=== PATIENT | male | born 1990 | race Caucasian/White ===

== ENCOUNTER 2016-11-04 11:58 | Day surgery (SDC) | payer MEDICAID ==
[~2016-11-04] VITALS: Ht 142.2 cm; Wt 45.4 kg
[~2016-11-04 11:58] MED LIST: BACL10TA2 PO; BUDE0.5S6 INH; CITA20TA4 PO; DIAZ2TAB PO; LEVA0.636 INH; MAGNSOL PO; NYST100024 TOP; PEG1POW PO; SENN8.6T10 PO
[2016-11-04] MEDS ORDERED: LR 1,000 ML IV SCH ×3 (13:00→22:00)
[2016-11-04] MEDS ORDERED: EMLA CREAM 5GM (LIDOCAINE/PRILOCAINE) As Ordered ONE (16:41)
[2016-11-04] MEDS ORDERED: LIDOCAINE W/EPINEPHRINE 1% 20ML VIAL As Ordered ONE (19:36)
[2016-11-04] MEDS ORDERED: ROCURONIUM BROMIDE 50 MG/5 ML VIAL As Ordered ONE (20:43)
[2016-11-04] MEDS ORDERED: ONDANSETRON 4MG/2ML VIAL (J2405) As Ordered ONE (20:43)
[2016-11-04] MEDS ORDERED: MIDAZOLAM INJ 2 MG/2 ML VIAL (J2250) As Ordered ONE (20:43)
[2016-11-04] MEDS ORDERED: PROPOFOL 200 MG/20 ML VIAL As Ordered ONE (20:43)
[2016-11-04] MEDS ORDERED: fentaNYL 250 MCG/5 ML INJECTION (J3010) As Ordered ONE (20:43)
[2016-11-04] MEDS ORDERED: LIDOCAINE 2% INJ 100 MG/5 ML SDV (FOR ANES.) As Ordered ONE (20:43)
[2016-11-04] MEDS ORDERED: fentaNYL 100 MCG/2 ML INJECTION (J3010) IV PRN (22:00)
[2016-11-04] MEDS ORDERED: ONDANSETRON 4MG/2ML VIAL (J2405) IV PRN (22:00)
[2016-11-04] MEDS ORDERED: IBUPROFEN 600 MG TAB PO PRN (22:15)
[2016-11-04 22:45] VITALS: BP 112/58
--- NOTE | 2016-11-05 00:02 | RO ---
DATE OF PROCEDURE: 11/04/2016 PREOPERATIVE DIAGNOSIS: Dental caries. POSTOPERATIVE DIAGNOSIS: Dental Caries; gingivitis PROCEDURE: operative and full mouth debridement SURGEON; Dr. Uli Harris PARAGLIDING INSTRUCTOR: None ANESTHESIA: General DESCRIPTION OF PROCEDURE: The patient, Quoc Lazo, was brought to the operating room and placed onto the operating table in the supine position. After all monitoring equipment was attached to the patient, vital signs were checked and general anesthetic medicaments were delivered via inhalation. Nasal intubation proceeded and tube extension was secured into position after breathing was monitored. The patient was then prepped and draped for dental surgical procedures. The intraoral cavity was inspected and suctioned free of gross secretions. One large moist throat pack was placed. One full mouth radiograph series were taken. Exam completed. Full mouth debridement and prophy of entire dentition completed. Decay removal followed by composite condensation was completed on the mesial and facial surface of tooth #23. Fluoride varnish application completed. Final removal of all gross fluids from intraoral and extraoral structure. Bite block removed. The patient then left in the care of presiding anesthesiologist. Note, there was continuous removal of all gross fluid throughout the duration of all performed dental procedures. JELANI
== END 2016-11-04 23:41 ==
LOC: M SDC 11:58 → M MSPAV 22:37 → M SDC 23:41
PROVIDERS: ATTEND Dentist General Practice
DX: K02.61 Dental caries on smooth surface limited to enamel (principal); K05.00 Acute gingivitis, plaque induced; R29.898 Other symptoms and signs involving the musculoskeletal system; G80.9 Cerebral palsy, unspecified; J45.909 Unspecified asthma, uncomplicated; R32 Unspecified urinary incontinence; J30.9 Allergic rhinitis, unspecified; H66.3X9 Other chronic suppurative otitis media, unspecified ear; Z88.1 Allergy status to other antibiotic agents; Z79.899 Other long term (current) drug therapy; Z91.09 Other allergy status, other than to drugs and biological substances
CPT/HCPCS: 70320; D0210; D2331; D4355; D9223; J2250; J2405; J3010

== ENCOUNTER 2017-06-10 12:30 | Emergency (ER) | payer MEDICAID ==
[~2017-06-10] VITALS: Ht 142.2 cm; Wt 45.5 kg
[~2017-06-10 12:30] MED LIST changes: -MAGNSOL PO; +MAGNSOL18 PO; -NYST100024 TOP; +NYST1POW9 TOP; +SENN1TAB10 PO; -SENN8.6T10 PO
[2017-06-10] MEDS ORDERED: BACL10TA2 PO (12:44)
[2017-06-10] MEDS ORDERED: FLEET ENEMA PR STA (16:06)
[2017-06-10] MEDS ORDERED: CITRSOL8 PO (16:59)
[2017-06-10 17:07] VITALS: BP 131/72
--- NOTE | 2017-06-10 17:39 | REP ---
Abdomen series: Three views. History: Constipation. Comparison study: September 08, 2016. Findings: Upright chest radiograph is unremarkable. Heart is not enlarged. Lungs are clear. Supine and right-side up decubitus views of the abdomen show no evidence of free air. 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 No mass, organomegaly or pathologic calcification is seen. Impression: Unremarkable bowel gas pattern. No evidence of free air or obstruction. Moderate stool left colon. Signed by Andres Latham MD 06/11/2017 07:57 A
== END 2017-06-10 17:09 | disposition home or self-care (01) ==
LOC: M ED 12:30
DX: K59.09 Other constipation (principal); G80.9 Cerebral palsy, unspecified

== ENCOUNTER → 2019-08-09 | Outpatient (REF) | payer MEDICAID ==
[~2019-08-09] MED LIST changes: -CITA20TA4 PO; +CITA20TA6 PO; +CITRSOL8 PO
== END ==
LOC: M LAB REF 16:39
PROVIDERS: ATTEND Physician Assistant
DX: S51.001A Unspecified open wound of right elbow, initial encounter (principal)

== ENCOUNTER → 2019-10-15 | Outpatient (CLI) | payer MEDICAID ==
--- NOTE | 2019-10-19 09:40 | DEXA ---
AP SPINE L1 - L4 0.827 -3.0 -3.3 LT FEMUR TOTAL 0.609 -3.2 -3.4 LT NECK 0.475 -4.1 -4.6 RT FEMUR TOTAL 0.673 -2.7 -2.9 RT NECK 0.643 -2.8 -3.3 TOTAL BODY TOTAL OTHER COMMENTS: There is osteoporosis of the spine and hips. FOLLOW-UP: Recommendation for the next bone density exam: 2 years. JELANI
== END ==
LOC: M WHC 10:40 → EEVIPCON 11:00
PROVIDERS: ATTEND Family Medicine
DX: Z13.820 Encounter for screening for osteoporosis (principal); M81.8 Other osteoporosis without current pathological fracture

== ENCOUNTER → 2020-07-14 | Outpatient (CLI) | payer MEDICAID ==
[~2020-07-14] MED LIST changes: -MAGNSOL18 PO; +MAGNSOL2 PO
[2020-07-14 14:41] LABS: ALBUMIN 3.8 GM/DL (3.2-5.2); ALT/SGPT 24 U/L (12-78); BILIRUBIN,TOTAL 0.5 MG/DL (0.2-1.0); BLOOD UREA NITROGEN 15 MG/DL (7-18); CALCIUM LEVEL 8.8 MG/DL (8.5-10.1); CARBON DIOXIDE LEVEL 28 MEQ/L (21-32); CHLORIDE LEVEL 106 MEQ/L (98-107); CREATININE FOR GFR 0.73 MG/DL (0.70-1.30); GLOMERULAR FILTRATION RATE > 60.0 (>60); GLUCOSE, FASTING 77 MG/DL (70-100); POTASSIUM SERUM 4.2 MEQ/L (3.5-5.1); SODIUM LEVEL 139 MEQ/L (136-145); TOTAL PROTEIN 7.1 GM/DL (6.4-8.2)
== END ==
LOC: M WUC 09:02
PROVIDERS: ATTEND Physical Medicine & Rehabilitation
DX: G80.0 Spastic quadriplegic cerebral palsy (principal)

== ENCOUNTER → 2021-01-03 | Outpatient (CLI) | payer MEDICAID ==
[~2021-01-03] MED LIST changes: -PEG1POW PO; +POLY17PO18 PO
[2021-01-03 10:31] LABS: BASO # 0.1 10^3/uL (0.0-0.2); BASO % 1.1 % (0.0-1.0); EOS # 0.1 10^3/uL (0.0-0.5); HEMATOCRIT 30.1 % (42.0-52.0); HEMOGLOBIN 8.5 g/dl (13.5-17.5); LYMPH # 2.2 10^3/uL (1.5-5.0); LYMPH % 34.1 % (24.0-44.0); MEAN CORPUSCULAR HEMOGLOBIN 19.9 pg (27.0-33.0); MEAN CORPUSCULAR HGB CONC 28.2 g/dl (32.0-36.5); MEAN CORPUSCULAR VOLUME 70.3 fl (80.0-96.0); MONO # 0.7 10^3/uL (0.0-0.8); MONO % 10.4 % (2.0-8.0); NEUTROPHILS # 3.3 10^3/uL (1.5-8.5); NEUTROPHILS % 52.2 % (36.0-66.0); PLATELET COUNT, AUTOMATED 420 10^3/uL (150-450); RED BLOOD COUNT 4.28 10^6/uL (4.30-6.10); WHITE BLOOD COUNT 6.4 10^3/uL (4.0-10.0)
[2021-01-03 11:33] LABS: ALBUMIN 3.9 GM/DL (3.2-5.2); ALT/SGPT 25 U/L (12-78); BILIRUBIN,TOTAL 0.1 MG/DL (0.2-1.0); BLOOD UREA NITROGEN 14 MG/DL (7-18); CALCIUM LEVEL 9.5 MG/DL (8.5-10.1); CARBON DIOXIDE LEVEL 29 MEQ/L (21-32); CHLORIDE LEVEL 102 MEQ/L (98-107); CHOLESTEROL LEVEL 237 MG/DL (<200); CHOLESTEROL RISK RATIO 4.557 (<5); CREATININE FOR GFR 0.52 MG/DL (0.70-1.30); FERRITIN 4 NG/ML (26-388); FOLATE 7.1 NG/ML; FREE T4 0.99 NG/DL (0.76-1.46); GLOMERULAR FILTRATION RATE > 60.0 (>60); GLUCOSE, FASTING 82 MG/DL (70-100); HDL CHOLESTEROL 52 MG/DL (>40); IRON (FE) 10 UG/DL (65-175); LDL CHOLESTEROL 145 MG/DL (<100); NON-HDL-C 185 MG/DL; POTASSIUM SERUM 4.5 MEQ/L (3.5-5.1); SODIUM LEVEL 139 MEQ/L (136-145); TOTAL PROTEIN 6.9 GM/DL (6.4-8.2); TRIGLYCERIDES LEVEL 202 MG/DL (<150); VITAMIN B12 LEVEL 499 PG/ML
[2021-01-04 16:08] LABS: H PYLORI SERUM QUANT IGA <9.0 units (0.0-8.9); H PYLORI SERUM QUANT IGM <9.0 units (0.0-8.9); H PYLORI SERUM QUANT IgG ABY 0.22 (0.00-0.79)
== END ==
LOC: M LAB 09:20
PROVIDERS: ATTEND Physician Assistant
DX: Z13.220 Encounter for screening for lipoid disorders (principal); Z13.0 Encounter for screening for diseases of the blood and blood-forming organs and certain disorders involving the immune mechanism; R11.10 Vomiting, unspecified; Z13.29 Encounter for screening for other suspected endocrine disorder

== ENCOUNTER → 2021-01-30 | Outpatient (CLI) | payer MEDICAID ==
[~2021-01-30] MED LIST changes: +ISOVUE-370 76% 100ML VIAL As Ordered ONE
--- NOTE | 2021-01-30 12:41 | REP ---
INDICATION: CONSTIPATION. COMPARISON: Abdomen/pelvis CT dated 09/06/2016. TECHNIQUE: Abdomen/pelvis CT without IV or bowel contrast. FINDINGS: The ascending colon, transverse colon and descending colon are distended with a large volume of fecal residue. Next I believe this patient has a markedly redundant sigmoid colon that is distended with gas and air containing multiple loops residing primarily anteriorly in the abdomen, anterior to the transverse colon and small bowel. This anatomy could be confirmed by barium enema. There is no small bowel distention or obstruction. The visualized lung crockett are unremarkable. The unenhanced hepatic parenchyma, gallbladder, pancreas, spleen, adrenals, kidneys and abdominal aorta are unremarkable. There is no ascites or adenopathy. Pelvis: The bladder is unremarkable. There is no ascites or adenopathy. IMPRESSION: I suspect this patient has a markedly redundant sigmoid colon multiple loops residing anteriorly in the abdomen. The sigmoid colon is distended with air and gas. The ascending colon, transverse colon and descending colon are distended with a large volume of fecal residue. This colonic anatomy could be confirmed by barium enema. <Electronically signed by Talha Finley > 01/30/21 [id number]
== END ==
LOC: M RAD 10:31
PROVIDERS: ATTEND Nurse Practitioner Family
DX: K59.00 Constipation, unspecified (principal)

== ENCOUNTER → 2021-04-12 | Outpatient (CLI) | payer MEDICAID ==
[~2021-04-12] MED LIST changes: +ACET-910 PO; +ALEN70TA82 PO; +CETI10TA PO; +CYCL-707 PO; +D32000CA PO; +DANT25CA2 PO; +DOK1CAP7 PO; +FISH1000 PO; +FLEEENE12 PR; +FLEEENE3 PR; +IBUP200T45 PO; -ISOVUE-370 76% 100ML VIAL As Ordered ONE; +LACT20EL PO; +MIRA3350 PO; +PROB1TAB2 PO; +SIME80CH5 PO; +vitamin d3
== END ==
LOC: M LABSMTC 12:44
PROVIDERS: ATTEND Family Medicine
DX: Z20.822 Contact with and (suspected) exposure to COVID-19 (principal); Z53.8 Procedure and treatment not carried out for other reasons

== ENCOUNTER 2021-04-16 10:29 | Inpatient (IN) | payer MEDICAID ==
[~2021-04-16] VITALS: Ht 139.7 cm; Wt 50.9 kg
[~2021-04-16 10:29] MED LIST changes: -ACET-910 PO; -ALEN70TA82 PO; -CETI10TA PO; -CYCL-707 PO; -D32000CA PO; -DANT25CA2 PO; -DOK1CAP7 PO; -FISH1000 PO; -FLEEENE12 PR; -FLEEENE3 PR; -IBUP200T45 PO; -LACT20EL PO; -MIRA3350 PO; -PROB1TAB2 PO; -SIME80CH5 PO; -vitamin d3
[2021-04-16] MEDS ORDERED: LACT20EL PO (10:56)
[2021-04-16] MEDS ORDERED: vitamin d3 (10:56)
[2021-04-16] MEDS ORDERED: MIRA3350 PO (10:56)
[2021-04-16] MEDS ORDERED: SIME80CH5 PO (10:56)
[2021-04-16] MEDS ORDERED: DANT25CA2 PO (10:56)
[2021-04-16] MEDS ORDERED: ALEN70TA82 PO (10:56)
[2021-04-16] MEDS ORDERED: CYCL-707 PO (10:56)
[2021-04-16] MEDS ORDERED: DOK1CAP7 PO (10:56)
[2021-04-16] MEDS ORDERED: NS 1,000 ML IV ONE (11:25)
[2021-04-16] MEDS ORDERED: ISOVUE-370 76% 100ML VIAL As Ordered ONE (11:34)
[2021-04-16 11:36] LABS: BASO # 0.1 10^3/uL (0.0-0.2); BASO % 0.6 % (0.0-1.0); EOS # 0.3 10^3/uL (0.0-0.5); EOS % 1.9 % (0.0-3.0); HEMATOCRIT 43.6 % (42.0-52.0); LYMPH # 1.9 10^3/uL (1.5-5.0); LYMPH % 11.2 % (24.0-44.0); MEAN CORPUSCULAR HEMOGLOBIN 28.8 pg (27.0-33.0); MEAN CORPUSCULAR HGB CONC 32.1 g/dl (32.0-36.5); MEAN CORPUSCULAR VOLUME 89.7 fl (80.0-96.0); MONO # 1.8 10^3/uL (0.0-0.8); MONO % 10.5 % (2.0-8.0); NEUTROPHILS # 12.6 10^3/uL (1.5-8.5); NEUTROPHILS % 72.7 % (36.0-66.0); PLATELET COUNT, AUTOMATED 328 10^3/uL (150-450); RED BLOOD COUNT 4.86 10^6/uL (4.30-6.10)
[2021-04-16 12:20] LABS: WHITE BLOOD COUNT 17.3 10^3/uL (4.0-10.0)
--- NOTE | 2021-04-16 12:21 | REP ---
INDICATION: rectal/gluteal abscess. COMPARISON: 01/30/2021. TECHNIQUE: CT pelvis performed following the intravenous administration of 75 cc Isovue 370. Sagittal and coronal reconstruction images are performed. FINDINGS: There is diffuse inflammatory thickening of the distal sigmoid and of the rectum. The perirectal fat is inflamed. Between the rectum and sacrum there is ill-defined soft tissue density likely representing phlegmonous change, with no discrete walled-off drainable abscess identified. Just deep to the anal verge there is an anal fistula at the 5 o'clock position which extends into the left gluteal soft tissues. [id number] streaky inflammatory changes extend to the skin surface but there is no abscess collection identified in these soft tissues. No free air is seen in the pelvis. No significantly enlarged lymph nodes are seen in the pelvis. 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 There is spina bifida occulta of S1. No osseous destruction is seen of the pelvic bones. IMPRESSION: Diffuse inflammatory thickening of the rectum extending into the distal sigmoid. Presacral phlegmonous change with no definite drainable walled-off abscess. There is a small fistula of the anus just above the anal verge at the 5 o'clock position, with a thin tract extending into the left gluteal soft tissues, with associated soft tissue inflammation. No abscess is seen at that location. <Electronically signed by Talha George > 04/16/21 [id number]
[2021-04-16] MEDS ORDERED: VANCOMYCIN HCL 1,000 MG, VIAL MATE ADAPTER 1 EACH in NS 250 ML IV ONE (13:50)
[2021-04-16] MEDS ORDERED: MOM 30ML SUSPENSION UDC PO PRN (14:35)
[2021-04-16] MEDS ORDERED: MAALOX 30 ML SUSP *UDC PO PRN (14:35)
[2021-04-16] MEDS ORDERED: CETI10TA PO (14:42)
[2021-04-16] MEDS ORDERED: ACET-910 PO (14:42)
[2021-04-16] MEDS ORDERED: FLEEENE12 PR (14:42)
[2021-04-16] MEDS ORDERED: IBUP200T45 PO (14:42)
[2021-04-16] MEDS ORDERED: PROB1TAB2 PO (14:42)
[2021-04-16] MEDS ORDERED: D32000CA PO (14:42)
[2021-04-16] MEDS ORDERED: FLEEENE3 PR (14:42)
[2021-04-16] MEDS ORDERED: FISH1000 PO (14:42)
[2021-04-16] MEDS ORDERED: VANCOMYCIN HCL 1,000 MG, VIAL MATE ADAPTER 1 EACH in NS 250 ML IV SCH (15:05)
[2021-04-16 15:25] LABS: RSV AMPLIFICATION NEGATIVE (NEGATIVE)
--- NOTE | 2021-04-16 16:02 | HPEPDOC ---
[facility] Medical History & Physical Date of Admission Apr 16, 2021 Date of Service: Apr 16, 2021 History and Physical CHIEF COMPLAINT: Anal pain HISTORY OF PRESENT ILLNESS: Patient is 30 years old history of cerebral palsy and mental retardation [facility] patient brought in to the hospital because of a two-week history of perianal pain. Staff noticed skin was increasingly becoming more red and painful and he was unable to sit up in his chair anymore. Unclear why he was not brought in earlier. Per [facility] worker at bedside it has been getting worse over the past week. Staff reports he had a fever. [facility] staff tells me his mother regularly shaves his perianal area. Unfortunately unable to obtain much history patient is mentally retarded and [facility] staff is not able to be more information. PAST MEDICAL/SURGICAL HISTORY: From chart review: [facility] patient mental retardation Cerebral palsy Seizure disorder Asthma SOCIAL HISTORY: Unable to obtain due to patients mental condition FAMILY HISTORY: Unable to obtain due to patients mental condition ALLERGIES: Please see below. REVIEW OF SYSTEMS: Unable to obtain due to patients mental condition HOME MEDICATIONS: Please see below. PHYSICAL EXAMINATION: Constitutional: Awake and alert ENT: Sclera are clear. Respiratory: Lungs CTA bilaterally. Cardiovascular: RRR S1 and S2 Gastrointestinal: Abdomen is soft, non distended Musculoskeletal: No lower extremity edema. Neurologic: Unable to assess Mental Status: Nonverbal Skin: Perianal skin is red and warm with probably an anal fissure. Tender to palpation. Examined with Dr. Pederson LABORATORY DATA: See below. IMAGING: See chart MICROBIOLOGY: Please see below. ASSESSMENT 30-year-old male [facility] patient was cerebral palsy brought in because of a two-week history of perianal pain. Admitted for evaluation by surgery and further medical workup and management. # Perianal infection # Cerebral palsy PLAN Unclear extent at this point. Discussed and consulted with Dr. Pederson. Recommended IV antibiotics for a few days may need to be explored more under anesthesia and you are later depending on how he responds to antibiotics. May need biopsy of the area to rule out anal cancer. I'll defer management to surgery. Blood cultures ordered. Patient is now on IV vancomycin.Continue home medications for chronic medical problems. DVT prophylaxis: Annax Bong Chengsef Hospitalist Vital Signs Vital Signs Date Time Temp Pulse Resp B/P (MAP) Pulse Ox O2 Delivery O2 Flow Rate FiO2 04/16/21 14:00 109/61 (77) 04/16/21 13:59 100 16 95 Room Air 04/16/21 10:51 99.0 Laboratory Data Labs 24H Laboratory Tests 2 04/16/21 11:24: Immature Granulocyte % (Auto) 3.1H, Neutrophils (%) (Auto) 72.7H, Lymphocytes (%) (Auto) 11.2L, Monocytes (%) (Auto) 10.5H, Eosinophils (%) (Auto) 1.9, Basophils (%) (Auto) 0.6, Neutrophils # (Auto) 12.6H, Lymphocytes # (Auto) 1.9, Monocytes # (Auto) 1.8H, Eosinophils # (Auto) 0.3, Basophils # (Auto) 0.1, Nucleated Red Blood Cells % (auto) 0.0, POC Glucose (Misc Panel) 94, POC Sodium (Misc Panel) 140, POC Potassium (Misc Panel) 3.4L, POC Chloride (Misc Panel) 101, POC Total CO2 (Misc Panel) 26.0, POC Blood Urea Nitrogen (Misc Panel 7L, POC Ionized Calcium (Misc Panel) 4.4L, POC Creatinine (Misc Panel) 0.5L, POC Hematocrit (Misc Panel) 45.0, Lactic Acid Level 1.1 04/16/21 14:40: Coronavirus (COVID-19)(PCR) NEGATIVE, Influenza Type A (RT-PCR) NEGATIVE, Influenza Type B (RT-PCR) NEGATIVE, Respiratory Syncytial Virus (PCR) NEGATIVE CBC/BMP Laboratory Tests 04/16/21 11:24 Microbiology Microbiology 04/16/21 Blood Culture, Received Pending 04/16/21 Blood Culture, Received Pending Home Medications Scheduled Alendronate Sodium (Alendronate Sodium) 70 Mg Tablet, 70 MG PO QWEEK WEDNESDAYS Cholecalciferol (Vitamin D3) (Vitamin D3) 50 Mcg Capsule, 50 MCG PO QHS Citalopram Hydrobromide (Citalopram HBr) 20 Mg Tab, 20 MG PO QHS Cyclobenzaprine HCl (Cyclobenzaprine HCl) 10 Mg Tablet, 10 MG PO TID Dantrolene Sodium (Dantrolene Sodium) 25 Mg Capsule, 50 MG PO TID Diazepam (Diazepam) 2 Mg Tab, 4 MG PO TID Docusate Sodium (Dok) 100 Mg Capsule, 100 MG PO BID Lactobacillus Acidophilus (Acidophilus) 1 Each Tablet, 1 TAB PO QHS Lactulose (Lactulose) 10 Gm/15 Ml Solution, 15 ML PO BID Greene-3 Fatty Acids/Fish Oil (Fish Oil 1,000 mg Capsule) 1 Each Capsule, 2,000 MG PO DAILY GIVEN WITH LUNCH Polyethylene Glycol 3350 (Miralax) 119 Gm Powder, 17 GRAM PO BID Simethicone (Simethicone) 80 Mg Tab.chew, 80 MG PO BID Scheduled PRN Acetaminophen (Acetaminophen) 325 Mg Tablet, 650 MG PO Q4H PRN for PAIN LEVEL 1- 4 Cetirizine HCl (Cetirizine HCl) 10 Mg Tablet, 10 MG PO DAILY PRN for ALLERGIES Glycerin (Glycerin Laxative) 5.4 Gm/5.4 Ml Janell.pf.kory, 5.4 GM MN DAILY PRN for CONSTIPATION ADMINISTER ON DAY 3 OF NO BOWEL MOVEMENT Ibuprofen (Ibu-200) 200 Mg Tablet, 400 MG PO Q6H PRN for PAIN LEVEL 1-5 Sodium Phosphate,[place]-Dibasic (Fleet Enema) 133 Ml Enema, 1 STEVE MN DAILY PRN for CONSTIPATION ADMINISTER ON DAY 4 OF NO BOWEL MOVEMENT Allergies Coded Allergies: cefaclor (Verified Allergy, Intermediate, HIVES, 11/02/20) red dye (Verified Adverse Reaction, Mild, GI UPSET, 11/02/20) A-FIB/CHADSVASC A-FIB History Current/History of A-Fib/PAF?: No KOURTNEY SOLO MD Apr 16, 2021 16:02
[2021-04-16] MEDS ORDERED: CETIRIZINE (ZyrTEC) 10 MG TAB PO PRN (16:05)
[2021-04-16] MEDS ORDERED: FLEET ENEMA PR PRN (16:05)
[2021-04-16 16:49] VITALS: BP 97/70
[2021-04-16] MEDS: ACETAMINOPHEN TAB 650MG DOSE (2X325MG) PO PRN (17:21)
[2021-04-16] MEDS: diazePAM 2 MG TAB PO SCH ×2 (17:21→21:46)
[2021-04-16] MEDS: CYCLOBENZAPRINE 10MG TABLET PO SCH ×2 (17:21→21:05)
[2021-04-16] MEDS: DANTROLENE 25 MG CAP PO SCH ×2 (17:52→21:05)
[2021-04-16] MEDS: CitaloPRAM (CeleXA) 20 MG TAB PO SCH (21:05)
[2021-04-16] MEDS: VANCOMYCIN HCL 750 MG, VIAL MATE ADAPTER 1 EACH in NS 250 ML IV SCH (21:06)
[2021-04-16] MEDS: MIRALAX *UNIT DOSE* 17GM PACKET PO SCH (21:06)
[2021-04-16] MEDS: DOCUSATE SODIUM 100MG CAPSULE PO SCH (21:06)
[2021-04-16] MEDS: LACTULOSE 20 GM/30 ML SYRUP UD PO SCH (21:06)
[2021-04-16] MEDS: SIMETHICONE 80MG CHEW TAB PO SCH (21:06)
[2021-04-16] MEDS: IBUPROFEN 400MG TAB PO PRN (21:47)
[2021-04-16 22:00] VITALS: BP 127/77
[2021-04-17] MEDS: VANCOMYCIN HCL 750 MG, VIAL MATE ADAPTER 1 EACH in NS 250 ML IV SCH ×3 (04:25→19:56)
[2021-04-17 06:00] VITALS: BP 140/66
[2021-04-17 06:28] LABS: HEMATOCRIT 42.3 % (42.0-52.0); HEMOGLOBIN 13.7 g/dl (13.5-17.5); MEAN CORPUSCULAR HEMOGLOBIN 29.1 pg (27.0-33.0); MEAN CORPUSCULAR HGB CONC 32.4 g/dl (32.0-36.5); MEAN CORPUSCULAR VOLUME 89.8 fl (80.0-96.0); PLATELET COUNT, AUTOMATED 371 10^3/uL (150-450); RED BLOOD COUNT 4.71 10^6/uL (4.30-6.10); WHITE BLOOD COUNT 17.8 10^3/uL (4.0-10.0)
[2021-04-17 06:47] LABS: BLOOD UREA NITROGEN 6 MG/DL (7-18); CALCIUM LEVEL 8.5 MG/DL (8.5-10.1); CARBON DIOXIDE LEVEL 26 MEQ/L (21-32); CHLORIDE LEVEL 106 MEQ/L (98-107); CREATININE FOR GFR 0.47 MG/DL (0.70-1.30); GLOMERULAR FILTRATION RATE > 60.0 (>60); GLUCOSE, FASTING 119 MG/DL (70-100); MAGNESIUM LEVEL 2.2 MG/DL (1.8-2.4); POTASSIUM SERUM 3.8 MEQ/L (3.5-5.1); SODIUM LEVEL 140 MEQ/L (136-145)
[2021-04-17] MEDS: MIRALAX *UNIT DOSE* 17GM PACKET PO SCH ×2 (09:00→21:40)
[2021-04-17] MEDS: LACTULOSE 20 GM/30 ML SYRUP UD PO SCH ×2 (09:00→21:40)
--- NOTE | 2021-04-17 09:06 | IPNPDOC ---
Text Note Date of Service The patient was seen on 04/17/21. NOTE Gen. surgery. Dr. Pederson The patient is a 30-year-old male with cerebral palsy, intellectual disability, [facility] resident, brought to the emergency department with a two-week history of renal pain, increasing redness and fever. The patient was noted to have perianal infection. T max 99.7 VSS Pt is non verbal. Contractions of Ues and LEs. Abdomen is soft, NT, ND. Perianal skin is erythematous, tenderness with palpation of the area, there appeared to be drainage of liquid stool from a small open area of skin . WBC 17.8, increased slightly. CT IMPRESSION: Diffuse inflammatory thickening of the rectum extending into the distal sigmoid. Presacral phlegmonous change with no definite drainable walled-off abscess. There is a small fistula of the anus just above the anal verge at the 5 o'clock position, with a thin tract extending into the left gluteal soft tissues, with associated soft tissue inflammation. No abscess is seen at that location. <Electronically signed by Talha George > 04/16/21 1217 A/P. Perianal infection with possible abscess, possible fistula. Patient is reviewed and examined as per Dr. Pederson this morning. Plan to arrange for OR for rectal exam under anesthesia with possible I&D of perianal abscess. Continue IV fluids and IV antibiotics as per hospitalist. Nothing by mouth for now. VS,Fishbone, I+O VS, Fishbone, I+O Laboratory Tests 04/16/21 11:24 04/17/21 05:49 Vital Signs Date Time Temp Pulse Resp B/P (MAP) Pulse Ox O2 Delivery O2 Flow Rate FiO2 04/17/21 06:00 96.5 102 20 140/66 (90) 96 04/16/21 22:00 Room Air I&O- Last 24 Hours up to 6 AM 04/17/21 05:59 Intake Total 1270 ml Balance 1270 ml Carisa Dubois Apr 17, 2021 09:06
[2021-04-17] MEDS: diazePAM 2 MG TAB PO SCH ×3 (09:10→21:40)
[2021-04-17] MEDS: CYCLOBENZAPRINE 10MG TABLET PO SCH ×3 (09:11→21:40)
[2021-04-17] MEDS: DOCUSATE SODIUM 100MG CAPSULE PO SCH ×2 (09:11→21:40)
[2021-04-17] MEDS: DANTROLENE 25 MG CAP PO SCH ×3 (09:11→21:41)
[2021-04-17] MEDS: SIMETHICONE 80MG CHEW TAB PO SCH ×2 (09:11→21:40)
[2021-04-17] MEDS: PIPERACILLIN/TAZOBACTAM SOD 3.375 GM in D5W MINI-BAG PLUS 50 ML IV SCH ×3 (09:11→21:40)
--- NOTE | 2021-04-17 10:22 | IPNPDOC ---
Date Seen The patient was seen on 04/17/21. 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 severe intellectual disability w 3-4 word vocabulary / nonverbal at baseline. VS, I&O, 24H, Fishbone Vital Signs/I&O Vital Signs Date Time Temp Pulse Resp B/P (MAP) Pulse Ox O2 Delivery O2 Flow Rate FiO2 04/17/21 06:00 96.5 102 20 140/66 (90) 96 04/16/21 22:00 Room Air I&O- Last 24 Hours up to 6 AM 04/17/21 06:00 Intake Total 1270 ml Balance 1270 ml Laboratory Data 24H LABS Laboratory Tests 2 04/16/21 11:24: Immature Granulocyte % (Auto) 3.1H, Neutrophils (%) (Auto) 72.7H, Lymphocytes (%) (Auto) 11.2L, Monocytes (%) (Auto) 10.5H, Eosinophils (%) (Auto) 1.9, Basophils (%) (Auto) 0.6, Neutrophils # (Auto) 12.6H, Lymphocytes # (Auto) 1.9, Monocytes # (Auto) 1.8H, Eosinophils # (Auto) 0.3, Basophils # (Auto) 0.1, N ucleated Red Blood Cells % (auto) 0.0, POC Glucose (Misc Panel) 94, POC Sodium (Misc Panel) 140, POC Potassium (Misc Panel) 3.4L, POC Chloride (Misc Panel) 101, POC Total CO2 (Misc Panel) 26.0, POC Blood Urea Nitrogen (Misc Panel 7L, POC Ionized Calcium (Misc Panel) 4.4L, POC Creatinine (Misc Panel) 0.5L, POC Hematocrit (Misc Panel) 45.0, Lactic Acid Level 1.1 04/16/21 14:40: Coronavirus (COVID-19)(PCR) NEGATIVE, Influenza Type A (RT-PCR) NEGATIVE, Influenza Type B (RT-PCR) NEGATIVE, Respiratory Syncytial Virus (PCR) NEGATIVE 04/17/21 05:49: Nucleated Red Blood Cells % (auto) 0.0, Anion Gap 8, Glomerular Filtration Rate > 60.0, Calcium Level 8.5, Magnesium Level 2.2 04/17/21 08:10: Methicillin-Resist S.aureus DNA PCR NOT DETECTED CBC/BMP Laboratory Tests 04/16/21 11:24 04/17/21 05:49 Microbiology Microbiology 04/16/21 Blood Culture, Received Pending 04/16/21 Blood Culture, Received Pending SPENCER SILVA MD Apr 17, 2021 10:22
[2021-04-17] MEDS: IBUPROFEN 400MG TAB PO PRN ×2 (10:29→22:37)
[2021-04-17] MEDS ORDERED: LIDOCAINE 2% 100MG/5ML SDV (FOR ANES.) As Ordered ONE (10:54)
[2021-04-17] MEDS ORDERED: propofoL 200 MG/20 ML VIAL As Ordered ONE (10:54)
[2021-04-17] MEDS ORDERED: fentaNYL 100 MCG/2 ML INJECTION (J3010) As Ordered ONE (10:54)
[2021-04-17] MEDS ORDERED: dexameTHASONE 4 MG/ML 1ML VIAL (J1100 PER 1MG) As Ordered ONE (10:55)
[2021-04-17] MEDS ORDERED: ONDANSETRON 4MG/2ML VIAL As Ordered ONE (10:55)
[2021-04-17] MEDS ORDERED: BUPIVACAINE/EPIN 0.25% 30 ML VIAL As Ordered ONE (12:15)
[2021-04-17] MEDS ORDERED: MIDAZOLAM 5MG/ML 1ML VIAL (J2250 PER 1MG) As Ordered ONE (12:21)
[2021-04-17] MEDS ORDERED: VANCOMYCIN 1000MG/20ML VIAL As Ordered ONE (12:46)
[2021-04-17] MEDS ORDERED: LR 1,000 ML IV SCH (14:00)
[2021-04-17] MEDS ORDERED: fentaNYL 100 MCG/2 ML INJECTION (J3010) IV PRN (14:00)
[2021-04-17] MEDS ORDERED: ONDANSETRON 4MG/2ML VIAL IV PRN (14:00)
--- NOTE | 2021-04-17 14:00 | IPN ---
PROGRESS NOTE DATE: 04/17/2021 SUBJECTIVE: The patient is nonverbal and unable to assess review of systems. Per [facility] staff at the bedside, the patient usually moans and yells when he is in pain. OBJECTIVE: VITAL SIGNS: Temperature is 96.5, pulse is 102, respiratory rate 20, blood pressure 140/66, 96% on room air. GENERAL: Nonverbal, contracted bilateral upper extremities, moans at the bedside. HEENT: Moist mucous membranes. NECK: No JVD. No thyromegaly. No cervical lymphadenopathy. LUNGS: Clear to auscultation. No wheezing, rales or rhonchi. HEART: S1 and S2, sinus rhythm. ABDOMEN: Soft, nontender and nondistended. Positive bowel sounds x4 quadrants. EXTREMITIES: No cyanosis, clubbing or pitting edema. 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 Patient has an 8 x 2 indurated area at the left buttocks draining brownish material through the perianal region. Laboratory data, microbiology and imaging studies have been reviewed. ASSESSMENT AND PLAN: This is a 30-year-old male with a history of intellectual disability, [facility] resident, bilateral upper extremity contractures, cerebral palsy, nonverbal, four to give word vocabulary, admitted due to a two week history of perirectal pain with redness and a fever. Patient was admitted for possible perianal abscess. CT was negative for abscess formation. Patient was started on Vancomycin, white count is unchanged at 17.8 slightly increased without fever overnight. Zosyn added for gram negative and anaerobic coverage today. Patient is waiting for surgical exploration in the OR. 1. Perianal infection, rule out abscess. Patient is on broad-spectrum antibiotics, Vancomycin and Zosyn. We will obtain wound cultures in the OR. Debridement per General Surgery, rule out abscess or fistula formation. 2. 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 Continue all other home medications.
[2021-04-17 14:35] VITALS: BP 123/67
[2021-04-17] MEDS: ACETAMINOPHEN TAB 650MG DOSE (2X325MG) PO PRN (14:57)
[2021-04-17] MEDS: ENOXAPARIN 40MG/0.4ML SYRINGE (J1650 PER 10MG) SC SCH (14:57)
[2021-04-17 15:30] VITALS: BP 98/54
[2021-04-17 16:35] VITALS: BP 144/72
--- NOTE | 2021-04-17 18:44 | RO ---
OPERATIVE NOTE DATE OF OPERATION: 04/16/2021 PREOPERATIVE DIAGNOSIS: Perianal abscess. 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 PROCEDURE: 1. Rectal exam under anesthesia. 2. Sharp excisional debridement of posterior rectal wall and posterior anus. 3. Debridement of subcutaneous tissues including the rectal wall, perirectal muscle, and subcutaneous fat and skin. SURGEON: Talha Pederson DO ROLLER DIE CUTTING MACHINE OPERATOR: None. ANESTHESIA: IV sedation with local. COMPLICATIONS: None. INDICATIONS FOR PROCEDURE: The patient is a 30-year-old male, [facility] [[email or web address] patient, nonverbal, with cerebral palsy who presents with a perianal abscess. The recommendation was to take him to the operating room for examination under anesthesia due to the significant inflammation and swelling seen on exam as well as the CAT scan. Recommendation was to proceed with examination under anesthesia as well as the debridement. Consent was obtained by the patient's mother over the phone. Risks and benefits of the procedure, not limited to, but including bleeding, infection, damage to surrounding structures, and need for further surgery were discussed in detail and cosent was obtained. DESCRIPTION OF PROCEDURE: The patient was brought back to operating room #2. After successful sedation, he was placed in the left lateral decubitus position. Next, a time-out was done to confirm the proper patient and proper procedure. Following that, a rectal exam was done noting a large open posterior rectal opening with a large amount of necrosis. On rectal exam, there was some palpable air identified in the posterior rectal wall, as well as obvious necrosis with necrotic tissue in the entire area. I was able to debride using sharp excisional debridement with a 15-blade scalpel. Once that was completed, the patient was awakened from anesthesia and sent to the PACU in stable condition. The patient tolerated the procedure well. I called his mother postoperatively to discuss the possibility of diverting colostomy with her. She understands, but would like to give this a day or two to see if he starts to improve on his own prior to considering any further surgical intervention.
[2021-04-17] MEDS: CitaloPRAM (CeleXA) 20 MG TAB PO SCH (21:40)
[2021-04-17 22:00] VITALS: BP 137/84
[2021-04-18] MEDS: ACETAMINOPHEN TAB 650MG DOSE (2X325MG) PO PRN ×2 (01:27→11:04)
[2021-04-18] MEDS: PIPERACILLIN/TAZOBACTAM SOD 3.375 GM in D5W MINI-BAG PLUS 50 ML IV SCH ×4 (02:45→21:54)
[2021-04-18] MEDS: VANCOMYCIN HCL 750 MG, VIAL MATE ADAPTER 1 EACH in NS 250 ML IV SCH ×3 (04:05→20:14)
[2021-04-18 06:00] VITALS: BP 104/55
[2021-04-18] MEDS: ENOXAPARIN 40MG/0.4ML SYRINGE (J1650 PER 10MG) SC SCH (08:32)
[2021-04-18] MEDS: SIMETHICONE 80MG CHEW TAB PO SCH ×2 (08:33→20:14)
[2021-04-18] MEDS: diazePAM 2 MG TAB PO SCH ×3 (08:33→20:14)
[2021-04-18] MEDS: MIRALAX *UNIT DOSE* 17GM PACKET PO SCH ×2 (08:33→20:15)
[2021-04-18] MEDS: IBUPROFEN 400MG TAB PO PRN ×2 (08:33→17:46)
[2021-04-18] MEDS: DANTROLENE 25 MG CAP PO SCH ×3 (08:33→20:23)
[2021-04-18] MEDS: DOCUSATE SODIUM 100MG CAPSULE PO SCH ×2 (08:33→20:15)
[2021-04-18] MEDS: CYCLOBENZAPRINE 10MG TABLET PO SCH ×3 (08:33→20:14)
[2021-04-18] MEDS: LACTULOSE 20 GM/30 ML SYRUP UD PO SCH ×2 (08:33→20:15)
--- NOTE | 2021-04-18 11:02 | IPNPDOC ---
Date Seen The patient was seen on 04/18/21. Progress Note SUBJECTIVE: no issues overnight per RN. nonverbal. unable to obtain ROS pod #1. necrotic tissue debrided w surgery recommending diverting colostomy, awaiting mother to give consent. OBJECTIVE: VITAL SIGNS: see below GENERAL: Nonverbal, contracted bilateral upper extremities HEENT: Moist mucous membranes. NECK: No JVD. No thyromegaly. No cervical lymphadenopathy. LUNGS: Clear to auscultation. No wheezing, rales or rhonchi. HEART: S1 and S2, sinus rhythm. ABDOMEN: Soft, nontender and nondistended. Positive bowel sounds x4 quadrants. perianal area dressing EXTREMITIES: No cyanosis, clubbing or pitting edema. 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 Laboratory data, microbiology and imaging studies have been reviewed. ASSESSMENT AND PLAN: This is a 30-year-old male with a history of intellectual disability, [facility] resident, bilateral upper extremity contractures, cerebral palsy, nonverbal, four to give word vocabulary, admitted due to a two week history of perirectal pain with redness and a fever. Patient was admitted for possible perianal abscess. CT was negative for abscess formation. Patient was started on Vancomycin, white count is unchanged at 17.8 slightly increased without fever overnight. Zosyn added for gram negative and anaerobic coverage today. 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 Sharp excisional debridement of posterior rectal wall and posterior anus. Debridement of subcutaneous tissues including the rectal wall, perirectal muscle, and subcutaneous fat and skin -pod #1. necrotic tissue debrided w surgery recommending diverting colostomy, awaiting mother to give consent. 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 Continue all other home medications. VS, I&O, 24H, Fishbone Vital Signs/I&O Vital Signs Date Time Temp Pulse Resp B/P (MAP) Pulse Ox O2 Delivery O2 Flow Rate FiO2 04/18/21 06:00 96.6 88 18 104/55 (71) 94 04/17/21 16:35 Room Air 04/17/21 13:42 100 I&O- Last 24 Hours up to 6 AM 04/18/21 06:00 Intake Total 850 ml Output Total 302 ml Balance 548 ml Laboratory Data 24H LABS Laboratory Tests 2 04/17/21 11:20: Vancomycin Level Trough 12.2 04/18/21 09:15: CBC/BMP Microbiology Microbiology 04/16/21 Blood Culture - Preliminary, Resulted No growth after 24 hours . All specim... 04/16/21 Blood Culture - Preliminary, Resulted No growth after 24 hours . All specim... SPENCER SILVA MD Apr 18, 2021 11:02
[2021-04-18 11:27] LABS: BASO % 0.2 % (0.0-1.0); EOS # 0.1 10^3/uL (0.0-0.5); EOS % 0.8 % (0.0-3.0); HEMATOCRIT 44.9 % (42.0-52.0); HEMOGLOBIN 14.5 g/dl (13.5-17.5); LYMPH % 13.9 % (24.0-44.0); MEAN CORPUSCULAR HEMOGLOBIN 28.8 pg (27.0-33.0); MEAN CORPUSCULAR HGB CONC 32.3 g/dl (32.0-36.5); MEAN CORPUSCULAR VOLUME 89.3 fl (80.0-96.0); MONO # 1.3 10^3/uL (0.0-0.8); NEUTROPHILS # 10.3 10^3/uL (1.5-8.5); NEUTROPHILS % 70.4 % (36.0-66.0); PLATELET COUNT, AUTOMATED 339 10^3/uL (150-450); RED BLOOD COUNT 5.03 10^6/uL (4.30-6.10); WHITE BLOOD COUNT 14.7 10^3/uL (4.0-10.0)
--- NOTE | 2021-04-18 12:21 | IPNPDOC ---
Text Note Date of Service The patient was seen on 04/18/21. NOTE No acute events overnight. No problems with fevers. On exam the redness and s welling re much improved. VSSAF NAD skin - perianal area has much less erythema and induration, drainage has improved, and there is no signs of spreading necrotic tissue. labs - below A) 30y/o male with necrotic tissue with abscess in the perianal and perirectal area. POD#1 s/p sharp excisional debridement of posterior anus and rectum P) reg diet abx placement of rectal tube. I advised the mother that a diverting colostomy would be good for him to help this heal. She would like to wait and see if any of this will improve on its own before turning to surgery. I will keep her posted on his updates. Jose Angel Pederson DO VS,Eva, I+O VS, Eva, I+O Laboratory Tests 04/18/21 11:11 Vital Signs Date Time Temp Pulse Resp B/P (MAP) Pulse Ox O2 Delivery O2 Flow Rate FiO2 04/18/21 06:00 96.6 88 18 104/55 (71) 94 04/17/21 16:35 Room Air 04/17/21 13:42 100 I&O- Last 24 Hours up to 6 AM 04/18/21 06:00 Intake Total 850 ml Output Total 302 ml Balance 548 ml MOUNIKA PEDERSON DO Apr 18, 2021 12:21
[2021-04-18 14:00] VITALS: BP 125/75
[2021-04-18] MEDS ORDERED: oxyCODONE 5MG TAB PO ONE (14:15)
[2021-04-18] MEDS ORDERED: LEVALBUTEROL 1.25 MG/0.5 ML CONCENTRATE NEB INH PRN ×3 (18:50→20:40)
[2021-04-18] MEDS ORDERED: LEVALBUTEROL 1.25 MG/0.5 ML CONCENTRATE NEB INH SCH (20:00)
[2021-04-18] MEDS: CitaloPRAM (CeleXA) 20 MG TAB PO SCH (20:14)
[2021-04-18 22:00] VITALS: BP 109/75
[2021-04-19] MEDS: ACETAMINOPHEN TAB 650MG DOSE (2X325MG) PO PRN ×2 (02:55→23:53)
[2021-04-19] MEDS: PIPERACILLIN/TAZOBACTAM SOD 3.375 GM in D5W MINI-BAG PLUS 50 ML IV SCH ×4 (02:56→22:15)
[2021-04-19 04:00] VITALS: BP 129/59
[2021-04-19] MEDS: VANCOMYCIN HCL 750 MG, VIAL MATE ADAPTER 1 EACH in NS 250 ML IV SCH ×3 (04:07→20:25)
[2021-04-19 06:00] VITALS: BP 138/63
[2021-04-19 07:04] LABS: BASO # 0.1 10^3/uL (0.0-0.2); BASO % 0.7 % (0.0-1.0); EOS # 0.3 10^3/uL (0.0-0.5); EOS % 1.5 % (0.0-3.0); HEMATOCRIT 40.4 % (42.0-52.0); HEMOGLOBIN 13.1 g/dl (13.5-17.5); LYMPH # 2.5 10^3/uL (1.5-5.0); LYMPH % 15.4 % (24.0-44.0); MEAN CORPUSCULAR HEMOGLOBIN 28.6 pg (27.0-33.0); MEAN CORPUSCULAR HGB CONC 32.4 g/dl (32.0-36.5); MEAN CORPUSCULAR VOLUME 88.2 fl (80.0-96.0); MONO # 1.2 10^3/uL (0.0-0.8); MONO % 7.2 % (2.0-8.0); NEUTROPHILS # 11.7 10^3/uL (1.5-8.5); NEUTROPHILS % 70.9 % (36.0-66.0); RED BLOOD COUNT 4.58 10^6/uL (4.30-6.10); WHITE BLOOD COUNT 16.5 10^3/uL (4.0-10.0)
[2021-04-19 07:08] LABS: PLATELET COUNT, AUTOMATED 483 10^3/uL (150-450)
[2021-04-19 07:31] LABS: BLOOD UREA NITROGEN 8 MG/DL (7-18); CALCIUM LEVEL 8.1 MG/DL (8.5-10.1); CARBON DIOXIDE LEVEL 28 MEQ/L (21-32); CHLORIDE LEVEL 107 MEQ/L (98-107); CREATININE FOR GFR 0.54 MG/DL (0.70-1.30); GLOMERULAR FILTRATION RATE > 60.0 (>60); GLUCOSE, FASTING 88 MG/DL (70-100); POTASSIUM SERUM 3.6 MEQ/L (3.5-5.1); SODIUM LEVEL 140 MEQ/L (136-145)
--- NOTE | 2021-04-19 08:10 | IPNPDOC ---
Text Note Date of Service The patient was seen on 04/19/21. NOTE No acute events overnight. No problems with fevers. On exam the redness and s welling are continuing to improve. VSSAF NAD skin - perianal area has much less erythema and induration, drainage has improved, and there is no signs of spreading necrotic tissue. labs - below A) 30y/o male with necrotic tissue with abscess in the perianal and perirectal area. POD#2 s/p sharp excisional debridement of posterior anus and rectum P) high fiber diet change abx wound cleansing daily, and frequent diaper changes. I was unable to get in touch with the mother this am, but I did speak with her and the father last evening. They are starting to consider the ostomy, but are worried because it would most likely be permanent. I am going to give him a few days with some changes to abx and wound care, and also some stool bulking agents. If there is no improvement, then we will plan on diverting end colostomy early next week. Jose Angel Pederson DO Eva RUIZ, I+O VSEva, I+O Laboratory Tests 04/18/21 11:11 04/19/21 06:47 04/19/21 06:48 Vital Signs Date Time Temp Pulse Resp B/P (MAP) Pulse Ox O2 Delivery O2 Flow Rate FiO2 04/18/21 22:00 98.0 113 24 109/75 (86) 96 Room Air 04/17/21 13:42 100 I&O- Last 24 Hours up to 6 AM 04/19/21 05:59 Intake Total 1486 ml Output Total 800 ml Balance 686 ml MOUNIKA PEDERSON DO Apr 19, 2021 08:10
[2021-04-19] MEDS: MIRALAX *UNIT DOSE* 17GM PACKET PO SCH ×2 (09:00→20:25)
[2021-04-19] MEDS: DOCUSATE SODIUM 100MG CAPSULE PO SCH ×2 (09:00→20:26)
[2021-04-19] MEDS: LACTULOSE 20 GM/30 ML SYRUP UD PO SCH ×2 (09:00→20:26)
[2021-04-19] MEDS: diazePAM 2 MG TAB PO SCH ×3 (09:25→20:25)
[2021-04-19] MEDS: DANTROLENE 25 MG CAP PO SCH ×3 (09:25→20:25)
[2021-04-19] MEDS: SIMETHICONE 80MG CHEW TAB PO SCH ×2 (09:25→20:25)
[2021-04-19] MEDS: ENOXAPARIN 40MG/0.4ML SYRINGE (J1650 PER 10MG) SC SCH (09:27)
[2021-04-19] MEDS: CYCLOBENZAPRINE 10MG TABLET PO SCH ×3 (09:28→20:25)
--- NOTE | 2021-04-19 11:42 | IPNPDOC ---
Date Seen The patient was seen on 04/19/21. Progress Note SUBJECTIVE: Patient was given 1 dose of oxycodone yesterday due to pain nonverbal. unable to obtain ROS but moans and screams for pain pod #2. necrotic perianal abscess/tissue debridement by surgery family consents to diverting colostomy. Afebrile no chills overnight. father yuliana [phone] OBJECTIVE: VITAL SIGNS: see below GENERAL: Nonverbal, contracted bilateral upper extremities No distress HEENT: Dry mucous membranes. NECK: No JVD. No thyromegaly. No cervical lymphadenopathy. LUNGS: Clear to auscultation. No wheezing, rales or rhonchi. HEART: S1 and S2, sinus rhythm. ABDOMEN: Soft, nontender and nondistended. Positive bowel sounds x4 quadrants. perianal area dressing EXTREMITIES: No cyanosis, clubbing or pitting edema. 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 Laboratory data, microbiology and imaging studies have been reviewed. ASSESSMENT AND PLAN: This is a 30-year-old male with a history of intellectual disability, [facility] resident, bilateral upper extremity contractures, cerebral palsy, nonverbal, four to give word vocabulary, admitted due to a two week history of perirectal pain with redness and a fever. Patient was admitted for possible perianal abscess. CT was negative for abscess formation. Patient was started on Vancomycin, white count is unchanged at 17.8 slightly increased without fever overnight. Zosyn added for gram negative and anaerobic coverage today. 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 Sharp excisional debridement of posterior rectal wall and posterior anus. Debridement of subcutaneous tissues including the rectal wall, perirectal muscle, and subcutaneous fat and skin -pod #2. necrotic tissue debrided w surgery recommending diverting colostomy -Parents of giving consent for diverting colostomy plans are for Friday or Friday per general surgeon Dr. 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 Continue all other home medications. VS, I&O, 24H, Fishbone Vital Signs/I&O Vital Signs Date Time Temp Pulse Resp B/P (MAP) Pulse Ox O2 Delivery O2 Flow Rate FiO2 04/19/21 06:00 97.4 94 16 138/63 (88) 99 Room Air 04/17/21 13:42 100 I&O- Last 24 Hours up to 6 AM 04/19/21 06:00 Intake Total 1686 ml Output Total 500 ml Balance 1186 ml Laboratory Data 24H LABS Laboratory Tests 2 04/19/21 06:47: Anion Gap 5L, Glomerular Filtration Rate > 60.0, Calcium Level 8.1L 04/19/21 06:48: Immature Granulocyte % (Auto) 4.3H, Neutrophils (%) (Auto) 70.9H, Lymphocytes (%) (Auto) 15.4L, Monocytes (%) (Auto) 7.2, Eosinophils (%) (Auto) 1.5, Basophils (%) (Auto) 0.7, Neutrophils # (Auto) 11.7H, Lymphocytes # (Auto) 2.5, Monocytes # (Auto) 1.2H, Eosinophils # (Auto) 0.3, Basophils # (Auto) 0.1, Nucleated Red Blood Cells % (auto) 0.0 04/19/21 11:09: CBC/BMP Laboratory Tests 04/19/21 06:47 04/19/21 06:48 Microbiology Microbiology 04/16/21 Blood Culture - Preliminary, Resulted No Growth after 48 hours. All Specime... 04/16/21 Blood Culture - Preliminary, Resulted No Growth after 72 hours. All specime... SPENCER SILVA MD Apr 19, 2021 11:41
--- NOTE | 2021-04-19 11:43 | CR ---
CONSULTATION DATE: 04/16/2021 CHIEF COMPLAINT: Perianal abscess. HISTORY OF PRESENT ILLNESS: The patient is a 30-year-old male with cerebral palsy, mental retardation from [facility]. He was brought into the hospital with two week history of perianal pain. Staff noticed that he had been increasingly more red and painful and was unable to sit up in his chair anymore. Because of that they brought him in. In the emergency room he had significant erythema and swelling around the perianal area. CT was obtained in the emergency room which did show some significant inflammation and swelling in the perirectal area. However, no distinct abscess formation. Because of that he was admitted to the Hospitalist Service, started on antibiotics and I was called to evaluate. The patient is unable to give any history himself at this time and there were [facility] staff with him but they were not able to give any further information. MEDICAL HISTORY: Mental retardation, cerebral palsy, seizure disorder, asthma. SURGICAL HISTORY: Bilateral inguinal hernia repairs. FAMILY HISTORY: Noncontributory. SOCIAL HISTORY: Negative. ALLERGIES: CEFACLOR AND RED DYE. HOME MEDICATIONS: Please see med rec. REVIEW OF SYSTEMS: Unable to obtain. PHYSICAL EXAMINATION: GENERAL: The patient is awake, alert, grimacing in pain with palpation to the perianal area. VITAL SIGNS: Temp 99, pulse 90, respirations 18, blood pressure 108/70, pulse ox 97% on room air. HEENT: Pupils equal, round and reactive to light and accommodation. HEART: S1, S2, regular rate and rhythm. LUNGS: Clear to auscultation bilaterally. ABDOMEN: Soft, nontender, non-distended, EXTREMITIES: Bilateral upper and lower extremity contractures. SKIN: On the perianal area there is significant erythema and induration going to the bilateral buttocks. In the posterior perianal area there is an opening in the skin that is actively draining purulent fluid already. There is no other palpable fluid collection on exam. LABORATORY DATA: White count 17.3, hemoglobin 14, platelets 328. IMAGING DATA: CT abdomen and pelvis showed diffuse inflammatory thickening of the rectum extending into the distal sigmoid, presacral phlegmonous changes with no definite drainable walled off abscess. There is a small fistula of the anus just above the anal verge at the 5 o'clock position with thin tract extending into the left gluteal soft tissues with associated soft tissue inflammation, no abscesses seen at this location. ASSESSMENT AND PLAN: The patient is a 30-year-old male with severe perianal inflammation and swelling. Recommendation at this time is to start him on IV fluids, antibiotics, monitor him overnight and see if there is any improvement by tomorrow. If not, then he will likely need to be brought to the operating room for surgical debridement. No indication for immediate surgical debridement at this time since he is not showing any signs of sepsis and there is no palpable drainable collection on exam. We will encourage drainage of the wound that is already actually draining on its own and again if there is no significant improvement in the next 24 hours then I will plan to take him to the operating room.
[2021-04-19 14:00] VITALS: BP 114/75
[2021-04-19] MEDS: CitaloPRAM (CeleXA) 20 MG TAB PO SCH (20:25)
[2021-04-19 22:00] VITALS: BP 115/57
[2021-04-20] MEDS: PIPERACILLIN/TAZOBACTAM SOD 3.375 GM in D5W MINI-BAG PLUS 50 ML IV SCH ×4 (03:11→21:11)
[2021-04-20] MEDS: VANCOMYCIN HCL 750 MG, VIAL MATE ADAPTER 1 EACH in NS 250 ML IV SCH ×2 (04:19→11:44)
[2021-04-20 06:00] VITALS: BP 116/56
--- NOTE | 2021-04-20 08:57 | IPNPDOC ---
Date Seen The patient was seen on 04/20/21. Progress Note SUBJECTIVE: per RN, pt was unable to take meds w chocolate pudding yesterday and was coughing , but did ok w applesauce. speech eval ordered this am. per RN, not screaming for pain. no fever overnight unable to obtain ROS since pt is nonverbal pod #3. necrotic perianal abscess/tissue debridement by surgery family consents to diverting colostomy. father yuliana [phone] OBJECTIVE: VITAL SIGNS: see below GENERAL: Nonverbal, contracted bilateral upper extremities No distress HEENT: Dry mucous membranes. NECK: No JVD. No thyromegaly. No cervical lymphadenopathy. LUNGS: AEBE Clear to auscultation. No wheezing, rales or rhonchi. HEART: S1 and S2, sinus rhythm. ABDOMEN: Soft, nontender and nondistended. Positive bowel sounds x4 quadrants. perianal area dressing EXTREMITIES: No cyanosis, clubbing or pitting edema. 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 Laboratory data, microbiology and imaging studies have been reviewed. ASSESSMENT AND PLAN: This is a 30-year-old male with a history of intellectual disability, [facility] resident, bilateral upper extremity contractures, cerebral palsy, nonverbal, four to give word vocabulary, admitted due to a two week history of perirectal pain with redness and a fever. Patient was admitted for possible perianal abscess. CT was negative for abscess formation. Patient was started on Vancomycin, white count is unchanged at 17.8 slightly increased without fever overnight. Zosyn added for gram negative and anaerobic coverage today. 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 Sharp excisional debridement of posterior rectal wall and posterior anus. Debridement of subcutaneous tissues including the rectal wall, perirectal muscle, and subcutaneous fat and skin -pod #3 necrotic tissue debrided w surgery recommending diverting colostomy -Parents giving consent for diverting colostomy plans are for Friday or Friday per general surgeon Dr. Pederson -Continued on IV Zosyn Vanco discontinued -As needed pain medications -pt's father wants to be updated when surgery will be done. defer to Dr. Pederson for OR schedule. 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 Continue all other home medications. Dysphagia -speech eval today VS, I&O, 24H, Fishbone Vital Signs/I&O Vital Signs Date Time Temp Pulse Resp B/P (MAP) Pulse Ox O2 Delivery O2 Flow Rate FiO2 04/20/21 06:00 97.3 92 18 116/56 (76) 94 Room Air 04/17/21 13:42 100 I&O- Last 24 Hours up to 6 AM 04/20/21 06:00 Intake Total 525 ml Output Total 0 ml Balance 525 ml Laboratory Data 24H LABS Laboratory Tests 2 04/19/21 11:09: Vancomycin Level Trough 14.8 Microbiology Microbiology 04/16/21 Blood Culture - Preliminary, Resulted No Growth after 72 hours. All specime... 04/16/21 Blood Culture - Preliminary, Resulted No Growth after 72 hours. All specime... SPENCER SILVA MD Apr 20, 2021 08:57
[2021-04-20 09:49] LABS: BASO # 0.2 10^3/uL (0.0-0.2); BASO % 0.8 % (0.0-1.0); EOS # 0.2 10^3/uL (0.0-0.5); HEMATOCRIT 45.7 % (42.0-52.0); HEMOGLOBIN 14.4 g/dl (13.5-17.5); LYMPH # 2.4 10^3/uL (1.5-5.0); LYMPH % 12.3 % (24.0-44.0); MEAN CORPUSCULAR HEMOGLOBIN 28.8 pg (27.0-33.0); MEAN CORPUSCULAR HGB CONC 31.5 g/dl (32.0-36.5); MEAN CORPUSCULAR VOLUME 91.4 fl (80.0-96.0); MONO # 1.2 10^3/uL (0.0-0.8); MONO % 6.3 % (2.0-8.0); NEUTROPHILS # 14.8 10^3/uL (1.5-8.5); NEUTROPHILS % 76.4 % (36.0-66.0); PLATELET COUNT, AUTOMATED 567 10^3/uL (150-450); WHITE BLOOD COUNT 19.3 10^3/uL (4.0-10.0)
[2021-04-20 10:05] LABS: BLOOD UREA NITROGEN 7 MG/DL (7-18); C REACTIVE PROTEIN QUANTITATIV 8.66 MG/DL (0.00-0.30); CARBON DIOXIDE LEVEL 27 MEQ/L (21-32); CHLORIDE LEVEL 106 MEQ/L (98-107); GLOMERULAR FILTRATION RATE > 60.0 (>60); GLUCOSE, FASTING 80 MG/DL (70-100); POTASSIUM SERUM 4.4 MEQ/L (3.5-5.1); SODIUM LEVEL 139 MEQ/L (136-145)
[2021-04-20] MEDS: CYCLOBENZAPRINE 10MG TABLET PO SCH ×3 (10:05→21:12)
[2021-04-20] MEDS: ENOXAPARIN 40MG/0.4ML SYRINGE (J1650 PER 10MG) SC SCH (10:05)
[2021-04-20] MEDS: MIRALAX *UNIT DOSE* 17GM PACKET PO SCH ×2 (10:05→21:00)
[2021-04-20] MEDS: LACTULOSE 20 GM/30 ML SYRUP UD PO SCH ×2 (10:05→21:00)
[2021-04-20] MEDS: diazePAM 2 MG TAB PO SCH ×3 (10:05→21:11)
[2021-04-20] MEDS: SIMETHICONE 80MG CHEW TAB PO SCH ×2 (10:05→21:12)
[2021-04-20] MEDS: DANTROLENE 25 MG CAP PO SCH ×3 (10:06→21:12)
[2021-04-20] MEDS: DOCUSATE SODIUM 100MG CAPSULE PO SCH ×2 (10:06→21:00)
--- NOTE | 2021-04-20 12:01 | IPNPDOC ---
Text Note Date of Service The patient was seen on 04/20/21. NOTE Patient seen and discussed with nursing. She tells me that family is willing to consent for diverting colostomy which Dr. Pederson has discussed with his mom. Nurse reports incontinent liquid stool. He has been afebrile. Vital signs Patient is afebrile, nontachycardic Patient is laying down almost prone, was asleep, nonverbal does not seem to be in any pain. Examined his anal verge area. There is a posterior anal wound that overall looks clean and noninflamed but this has some flecks of stool. There is no skin erythema but there is some subcutaneous thickening superior to the wound opening. I pressed on around the area but did not get any purulent drainage. Patient seemed to tolerate the examination without showing much discomfort. Impression and plan Posterior anal soft tissue abscess/necrosis Stool leakage/incontinence Continue with antibiotics. The WBC is going up. Today it is 19.3. I will include CRP in tomorrow's lab. There may be a undrained collection, or this is just ongoing phlegmon/inflammation. We may need to repeat the CT of the pelvis if white count and especially the CRP continues to go up and he may need further debridement or trip to the OR. Family is consenting to colostomy now so I will add him on Dr. Pederson schedule on Friday. VS,Fishbone, I+O VS, Fishbone, I+O Laboratory Tests 04/20/21 09:33 Vital Signs Date Time Temp Pulse Resp B/P (MAP) Pulse Ox O2 Delivery O2 Flow Rate FiO2 04/20/21 06:00 97.3 92 18 116/56 (76) 94 Room Air 04/17/21 13:42 100 I&O- Last 24 Hours up to 6 AM 04/20/21 06:00 Intake Total 525 ml Output Total 0 ml Balance 525 ml ANGELES WIGGINS MD Apr 20, 2021 12:01
[2021-04-20 14:00] VITALS: BP 122/82
[2021-04-20] MEDS: CIPRODEX OTIC SUSP 7.5ML AU SCH ×2 (16:27→21:11)
[2021-04-20 20:00] VITALS: BP 127/93
[2021-04-20] MEDS: CitaloPRAM (CeleXA) 20 MG TAB PO SCH (21:12)
[2021-04-21] MEDS: PIPERACILLIN/TAZOBACTAM SOD 3.375 GM in D5W MINI-BAG PLUS 50 ML IV SCH ×4 (03:19→21:24)
[2021-04-21 06:00] VITALS: BP 106/66
[2021-04-21] MEDS ORDERED: VANCOMYCIN HCL 1,000 MG, VIAL MATE ADAPTER 1 EACH in NS 250 ML IV SCH (08:10)
[2021-04-21] MEDS: LACTULOSE 20 GM/30 ML SYRUP UD PO SCH ×2 (08:55→21:00)
[2021-04-21] MEDS: DANTROLENE 25 MG CAP PO SCH ×3 (08:56→21:24)
[2021-04-21] MEDS: diazePAM 2 MG TAB PO SCH ×3 (08:56→21:24)
[2021-04-21] MEDS: CYCLOBENZAPRINE 10MG TABLET PO SCH ×3 (08:56→21:24)
[2021-04-21] MEDS: SIMETHICONE 80MG CHEW TAB PO SCH ×2 (08:56→21:24)
[2021-04-21] MEDS: DOCUSATE SODIUM 100MG CAPSULE PO SCH ×2 (08:56→21:00)
[2021-04-21] MEDS: ENOXAPARIN 40MG/0.4ML SYRINGE (J1650 PER 10MG) SC SCH (09:04)
[2021-04-21] MEDS: CIPRODEX OTIC SUSP 7.5ML AU SCH ×2 (09:17→21:24)
[2021-04-21 09:21] LABS: BASO # 0.1 10^3/uL (0.0-0.2); BASO % 0.5 % (0.0-1.0); EOS # 0.2 10^3/uL (0.0-0.5); EOS % 0.9 % (0.0-3.0); HEMATOCRIT 46.9 % (42.0-52.0); LYMPH # 2.4 10^3/uL (1.5-5.0); LYMPH % 10.7 % (24.0-44.0); MEAN CORPUSCULAR HEMOGLOBIN 28.8 pg (27.0-33.0); MONO % 4.5 % (2.0-8.0); NEUTROPHILS % 80.9 % (36.0-66.0); PLATELET COUNT, AUTOMATED 633 10^3/uL (150-450); RED BLOOD COUNT 5.21 10^6/uL (4.30-6.10); WHITE BLOOD COUNT 22.2 10^3/uL (4.0-10.0)
--- NOTE | 2021-04-21 09:25 | IPN ---
PROGRESS NOTE DATE: 04/21/2021 SUBJECTIVE: The patient is nonverbal at baseline. He usually screams for pain. Per nursing, no issues overnight. The patient's white count has been steadily increasing off the vancomycin. Vancomycin therefore resumed today. No other issues overnight. OBJECTIVE: VITAL SIGNS: Temperature 97.6, pulse 86, respiratory rate 16, blood pressure 106/66, 96% on room air. GENERAL: The patient is nonverbal. He is in no distress. Sleeping comfortably on his back. He has contracted bilateral upper extremities and shortened lower extremities. HEENT: Dry mucous membranes. NECK: No JVD, thyromegaly, or cervical lymphadenopathy. No stridor. LUNGS: Air entry is equal bilaterally. No wheezing, rales, or rhonchi. Clear to auscultation. No kyphoscoliosis. HEART: S1, S2. Sinus rhythm. ABDOMEN: Soft, nontender, and nondistended with positive bowel sounds x4 quadrants. RECTAL: Perianal wound clean. The patient has no purulent drainage. EXTREMITIES: No cyanosis, clubbing, or pitting edema. LABORATORY DATA: 04/21 labs are pending. ASSESSMENT: This is a 30-year-old male with history of intellectual disability a [facility] resident, cerebral palsy, bilateral upper extremity contractures, nonverbal at baseline admitted due to two week history of perirectal pain and abscess found to have a white count of 17.8 initially started on vanco and Zosyn. Vanco discontinued after methicillin-resistant Staphylococcus aureus (MRSA) screen was negative. He was taken to the operating room (OR) and status post excisional debridement found to have necrosis and rectocutaneous fistula currently on broad-spectrum gram-negative coverage with Zosyn and anaerobic coverage. Vanco restarted due to worsening white count. IMPRESSION: 1. 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 2. Cerebral palsy and intellectual disability. 3. 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 4. Bilateral contracted upper extremities, chronic. 5. Dysphagia, aspiration risk. PLAN: Due to worsening leukocytosis, the patient's vancomycin has been restarted. He is postop day #4 for necrotic tissue debridement of the posterior rectal wall and posterior anus. Plans are to continue antibiotics and diverting colostomy either Friday or Friday; family has given consent for surgery. [facility] CENTERAlexsandra
[2021-04-21 09:42] LABS: ERYTHROCYTE SEDIMENTATION RATE 44 mm/hr (0-15)
[2021-04-21 09:45] LABS: BLOOD UREA NITROGEN 8 MG/DL (7-18); C REACTIVE PROTEIN QUANTITATIV 6.61 MG/DL (0.00-0.30); CALCIUM LEVEL 9.3 MG/DL (8.5-10.1); CARBON DIOXIDE LEVEL 31 MEQ/L (21-32); CHLORIDE LEVEL 103 MEQ/L (98-107); CREATININE FOR GFR 0.62 MG/DL (0.70-1.30); GLOMERULAR FILTRATION RATE > 60.0 (>60); GLUCOSE, FASTING 114 MG/DL (70-100); SODIUM LEVEL 138 MEQ/L (136-145)
[2021-04-21] MEDS: MIRALAX *UNIT DOSE* 17GM PACKET PO SCH ×2 (09:48→21:00)
[2021-04-21] MEDS: VANCOMYCIN HCL 750 MG, VIAL MATE ADAPTER 1 EACH in NS 250 ML IV SCH ×2 (11:20→18:10)
[2021-04-21 14:00] VITALS: BP 137/72
[2021-04-21] MEDS: CitaloPRAM (CeleXA) 20 MG TAB PO SCH (21:24)
[2021-04-21 22:00] VITALS: BP 132/84
[2021-04-22] MEDS: VANCOMYCIN HCL 750 MG, VIAL MATE ADAPTER 1 EACH in NS 250 ML IV SCH ×3 (02:09→18:26)
[2021-04-22] MEDS: PIPERACILLIN/TAZOBACTAM SOD 3.375 GM in D5W MINI-BAG PLUS 50 ML IV SCH ×4 (03:54→20:37)
[2021-04-22 06:00] VITALS: BP 113/63
[2021-04-22 06:53] LABS: BASO # 0.1 10^3/uL (0.0-0.2); BASO % 0.5 % (0.0-1.0); EOS # 0.3 10^3/uL (0.0-0.5); EOS % 1.6 % (0.0-3.0); HEMOGLOBIN 14.5 g/dl (13.5-17.5); LYMPH # 2.1 10^3/uL (1.5-5.0); LYMPH % 9.6 % (24.0-44.0); MEAN CORPUSCULAR HEMOGLOBIN 28.7 pg (27.0-33.0); MEAN CORPUSCULAR HGB CONC 31.5 g/dl (32.0-36.5); MEAN CORPUSCULAR VOLUME 91.1 fl (80.0-96.0); MONO # 1.2 10^3/uL (0.0-0.8); MONO % 5.8 % (2.0-8.0); NEUTROPHILS # 17.3 10^3/uL (1.5-8.5); NEUTROPHILS % 80.4 % (36.0-66.0); PLATELET COUNT, AUTOMATED 627 10^3/uL (150-450); RED BLOOD COUNT 5.05 10^6/uL (4.30-6.10); WHITE BLOOD COUNT 21.5 10^3/uL (4.0-10.0)
[2021-04-22 07:09] LABS: BLOOD UREA NITROGEN 10 MG/DL (7-18); CALCIUM LEVEL 9.3 MG/DL (8.5-10.1); CARBON DIOXIDE LEVEL 29 MEQ/L (21-32); CHLORIDE LEVEL 101 MEQ/L (98-107); CREATININE FOR GFR 0.71 MG/DL (0.70-1.30); GLOMERULAR FILTRATION RATE > 60.0 (>60); GLUCOSE, FASTING 117 MG/DL (70-100); POTASSIUM SERUM 4.8 MEQ/L (3.5-5.1); SODIUM LEVEL 137 MEQ/L (136-145)
[2021-04-22] MEDS: MIRALAX *UNIT DOSE* 17GM PACKET PO SCH ×3 (08:35→20:32)
[2021-04-22] MEDS: DOCUSATE SODIUM 100MG CAPSULE PO SCH ×2 (08:37→20:34)
[2021-04-22] MEDS: ENOXAPARIN 40MG/0.4ML SYRINGE (J1650 PER 10MG) SC SCH (08:37)
[2021-04-22] MEDS: DANTROLENE 25 MG CAP PO SCH ×3 (08:37→20:34)
[2021-04-22] MEDS: CIPRODEX OTIC SUSP 7.5ML AU SCH ×2 (08:37→20:35)
[2021-04-22] MEDS: SIMETHICONE 80MG CHEW TAB PO SCH ×2 (08:37→20:34)
[2021-04-22] MEDS: CYCLOBENZAPRINE 10MG TABLET PO SCH ×3 (08:37→20:35)
[2021-04-22] MEDS: LACTULOSE 20 GM/30 ML SYRUP UD PO SCH ×2 (08:38→20:33)
[2021-04-22] MEDS: diazePAM 2 MG TAB PO SCH ×3 (09:28→20:34)
--- NOTE | 2021-04-22 10:57 | REP ---
INDICATION: ffup post rectal inflammation/abscess. COMPARISON: 04/16/2021 TECHNIQUE: Axial noncontrast images through the pelvis with coronal and sagittal reformations. FINDINGS: Mucosal thickening and pericolonic inflammatory stranding extends from the distal sigmoid to the rectum. At the level of the rectum there is a complex somewhat poorly defined phlegmonous collection with gas and fluid components involving the presacral/ischiorectal space similar to recent prior examination but presumed to be increased in size (series 201; images 38-65). No discrete drainable collection is identified. Remainder of the visualized small and large bowel including terminal ileum and appendix appear normal. Bladder and prostate gland appear normal. Evidence for prior right inguinal hernia repair noted. 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 IMPRESSION: Phlegmonous changes/early abscess formation in the perirectal region as described above. Findings appear slightly increased when compared to prior examination, but no discernible drainable collection is identified. <Electronically signed by Guy Sykes > 04/22/21 [id number]
[2021-04-22] MEDS: ACETAMINOPHEN TAB 650MG DOSE (2X325MG) PO PRN (12:03)
[2021-04-22 14:00] VITALS: BP 136/75
--- NOTE | 2021-04-22 19:40 | IPN ---
PROGRESS NOTE DATE: 04/22/2021 SUBJECTIVE: The patient is seen and examined at the bedside. Chart has been reviewed. The patient is nonverbal. Unable to obtain review of systems. But per nursing, no issues overnight. The patient was not screaming in pain. No fevers or chills. White count was elevated. He was restarted back on Vancomycin, currently day number two, Zosyn day number three. The patient is due for debridement. OBJECTIVE: PHYSICAL EXAMINATION: VITAL SIGNS: Temperature 98.2, pulse 90, respiratory rate 14, blood pressure 113/63, oxygen saturation 96% on room air. GENERAL APPEARANCE: The patient is nonverbal. Contracted bilateral upper extremities, shortened lower extremities due to cerebral palsy, moaning but in no distress, not screaming. NECK: No JVD, no thyromegaly, no cervical lymphadenopathy. LUNGS: Diminished. HEART: S1, S2, sinus rhythm. ABDOMEN: Soft, nontender, nondistended. Positive bowel sounds. EXTREMITIES: The patient has perianal wound with no erythema but with some induration. No purulence noted. No clubbing, cyanosis, or pitting edema. Atrophic lower extremities. LABORATORY DATA: CBC, metabolic panel have been reviewed. IMAGING: Repeat imaging shows worsening phlegmon and abscess formation, increased from prior exam but no discernible, drainable fluid collection seen. ASSESSMENT AND PLAN: This is a 30-year-old cerebral palsy patient, [facility] resident with intellectual disability, nonverbal at baseline, bilateral upper extremity contractures and lower extremity deficits, admitted due to a 2-week history of perirectal abscess, found to have necrosis, status post dbridements, will need diverting colostomy. CURRENT ISSUES: 1. Sepsis secondary to perirectal abscess status post debridement requiring a diverting colostomy on Friday. The patient is broadly covered with IV Zosyn and Vancomycin with worsening white blood cell count. We will continue with the same. Await culture results from the O.R. in the morning. 2. Continue all other present management otherwise. 3. N.p.o. after midnight. 4. IV fluids. MTDD
[2021-04-22] MEDS: CitaloPRAM (CeleXA) 20 MG TAB PO SCH (20:35)
[2021-04-22 22:00] VITALS: BP 155/76
[2021-04-23] VITALS (7 sets, daily range): BP systolic 116–150; BP diastolic 56–79
[2021-04-23] MEDS: VANCOMYCIN HCL 750 MG, VIAL MATE ADAPTER 1 EACH in NS 250 ML IV SCH ×3 (02:04→19:47)
[2021-04-23] MEDS: PIPERACILLIN/TAZOBACTAM SOD 3.375 GM in D5W MINI-BAG PLUS 50 ML IV SCH ×4 (03:45→21:16)
[2021-04-23] MEDS: D5W/0.45% SODIUM CHLORIDE 1,000 ML IV SCH ×2 (05:01→15:12)
[2021-04-23] MEDS: DANTROLENE 25 MG CAP PO SCH ×3 (08:28→21:56)
[2021-04-23] MEDS: SIMETHICONE 80MG CHEW TAB PO SCH ×2 (08:28→21:56)
[2021-04-23] MEDS: CIPRODEX OTIC SUSP 7.5ML AU SCH ×2 (08:28→21:58)
[2021-04-23] MEDS: LACTULOSE 20 GM/30 ML SYRUP UD PO SCH ×2 (08:42→21:00)
[2021-04-23] MEDS: MIRALAX *UNIT DOSE* 17GM PACKET PO SCH ×2 (08:43→21:00)
[2021-04-23] MEDS: ENOXAPARIN 40MG/0.4ML SYRINGE (J1650 PER 10MG) SC SCH (08:56)
[2021-04-23] MEDS: DOCUSATE SODIUM 100MG CAPSULE PO SCH ×2 (09:00→21:56)
[2021-04-23 09:38] LABS: BASO # 0.1 10^3/uL (0.0-0.2); BASO % 0.5 % (0.0-1.0); EOS # 0.4 10^3/uL (0.0-0.5); EOS % 1.9 % (0.0-3.0); HEMATOCRIT 45.7 % (42.0-52.0); HEMOGLOBIN 14.4 g/dl (13.5-17.5); LYMPH # 2.1 10^3/uL (1.5-5.0); LYMPH % 10.1 % (24.0-44.0); MEAN CORPUSCULAR HEMOGLOBIN 28.5 pg (27.0-33.0); MEAN CORPUSCULAR HGB CONC 31.5 g/dl (32.0-36.5); MEAN CORPUSCULAR VOLUME 90.3 fl (80.0-96.0); MONO # 1.4 10^3/uL (0.0-0.8); MONO % 6.6 % (2.0-8.0); NEUTROPHILS # 16.3 10^3/uL (1.5-8.5); NEUTROPHILS % 79.2 % (36.0-66.0); PLATELET COUNT, AUTOMATED 647 10^3/uL (150-450); RED BLOOD COUNT 5.06 10^6/uL (4.30-6.10); WHITE BLOOD COUNT 20.6 10^3/uL (4.0-10.0)
[2021-04-23 10:00] LABS: BLOOD UREA NITROGEN 8 MG/DL (7-18); CALCIUM LEVEL 9.2 MG/DL (8.5-10.1); CARBON DIOXIDE LEVEL 27 MEQ/L (21-32); CHLORIDE LEVEL 103 MEQ/L (98-107); CREATININE FOR GFR 0.62 MG/DL (0.70-1.30); GLOMERULAR FILTRATION RATE > 60.0 (>60); GLUCOSE, FASTING 104 MG/DL (70-100); POTASSIUM SERUM 4.9 MEQ/L (3.5-5.1); SODIUM LEVEL 137 MEQ/L (136-145); VANCOMYCIN LEVEL TROUGH 16.3 UG/ML (10.0-20.0)
[2021-04-23] MEDS: diazePAM 2 MG TAB PO SCH ×3 (11:16→21:57)
[2021-04-23] MEDS: CYCLOBENZAPRINE 10MG TABLET PO SCH ×3 (11:16→21:56)
--- NOTE | 2021-04-23 13:25 | IPN ---
PROGRESS NOTE DATE: 04/16/2021 SUBJECTIVE: Patient has been kept n.p.o. after midnight to have a diverting colostomy placed later today. Currently on I.V. fluids. He is non-verbal, unable to obtain review of systems. Patient usually screams when he is in pain and per nursing patient had appeared to be comfortable. OBJECTIVE: Vital signs: Temperature 97, pulse 108, respiratory rate 16, blood pressure 150/71, 94% on room air. General: Patient is contracted bilateral extremitatis, cerebral palsy with atrophic lower extremities. Lungs: Clear to auscultation, no wheezes or rales. Heart: S1 and S2 sinus rhythm. Abdomen: Soft, nontender, nondistended, positive bowel sounds. Extremities: Shortened extremities. Perianal wound with no erythema. Persistent induration no purulence. Stool noted. LABORATORY DATA: CBC, metabolic panel and microbiology have been reviewed. IMAGING STUDIES: Reviewed. ASSESSMENT: This is a 30-year-old cerebral palsy patient, [facility] resident with intellectual disability, non-verbal at baseline with bilateral upper extremity contractures admitted due to a 2 week history of a perirectal abscess, found to have a perianal abscess with necrosis status post debridement. Awaited diverting colostomy until today. CURRENT ISSUES/PLANS: 1. Sepsis secondary to perirectal abscess status post debridement requiring diverting colotomy: Patient is on I.V. Zosyn and vanco with daily CBC and metabolic panel to adjust vancomycin dosage. 2. Cerebral palsy with bilateral contractures, non-verbal at baseline: Patient requires assistance with all his meals. He is at baseline mentation.
[2021-04-23] MEDS ORDERED: propofoL 200 MG/20 ML VIAL As Ordered ONE ×2 (15:49→17:56)
[2021-04-23] MEDS ORDERED: ACETAMINOPHEN 1000MG 100ML IV BTL (OFIRMEV) (J0131 PER 10MG) As Ordered ONE (15:49)
[2021-04-23] MEDS ORDERED: MIDAZOLAM INJ 2MG/2ML VIAL (J2250 PER 1MG) As Ordered ONE (15:49)
[2021-04-23] MEDS ORDERED: LIDOCAINE 2% 100MG/5ML SDV (FOR ANES.) As Ordered ONE (15:49)
[2021-04-23] MEDS ORDERED: dexameTHASONE 4 MG/ML 1ML VIAL (J1100 PER 1MG) As Ordered ONE (15:49)
[2021-04-23] MEDS ORDERED: METOCLOPRAMIDE INJ 10MG/2ML VIAL (J2765 PER 1) As Ordered ONE (15:49)
[2021-04-23] MEDS ORDERED: SUGAMMADEX SODIUM 500 MG/5 ML VIAL (BRIDION) As Ordered ONE (15:49)
[2021-04-23] MEDS ORDERED: KETOROLAC 60MG 2ML VIAL As Ordered ONE (15:49)
[2021-04-23] MEDS ORDERED: ONDANSETRON 4MG/2ML VIAL As Ordered ONE (15:49)
[2021-04-23] MEDS ORDERED: fentaNYL 100 MCG/2 ML INJECTION (J3010) As Ordered ONE ×2 (15:50→17:35)
[2021-04-23] MEDS ORDERED: ROCURONIUM BROMIDE 50 MG/5 ML VIAL As Ordered ONE ×2 (15:50→17:23)
[2021-04-23] MEDS ORDERED: BUPIVACAINE/EPIN 0.25% 30 ML VIAL As Ordered ONE (16:12)
--- NOTE | 2021-04-23 16:19 | IPNPDOC ---
Text Note Date of Service The patient was seen on 04/23/21. NOTE No acute events overnight. No problems with fevers. Plan for OR today for div erting colostomy, and debridement of the perirectal area again. VSSAF NAD abd - soft, nt, nd A) 30y/o male with necrotic tissue with abscess in the perianal and perirectal area. s/p sharp excisional debridement of posterior anus and rectum P) npo OR today for robotic diverting colostomy and debridement of the perirectal area. consent is signed by [facility] no changes to H+P. Jose Angel Pederson DO VS,Eva, I+O VS, Eva, I+O Laboratory Tests 04/23/21 09:07 Vital Signs Date Time Temp Pulse Resp B/P (MAP) Pulse Ox O2 Delivery O2 Flow Rate FiO2 04/23/21 14:00 98.0 91 16 117/65 (82) 98 Room Air 04/17/21 13:42 100 I&O- Last 24 Hours up to 6 AM 04/23/21 06:00 Intake Total 770 ml Balance 770 ml MOUNIKA PEDERSON DO Apr 23, 2021 16:19
[2021-04-23] MEDS ORDERED: METOPROLOL 5 MG/5 ML VIAL As Ordered ONE (18:01)
[2021-04-23] MEDS ORDERED: hydrALAZINE 20MG/ML 1ML VIAL (J0360 PER 20MG) As Ordered ONE (18:10)
[2021-04-23] MEDS ORDERED: fentaNYL 100 MCG/2 ML INJECTION (J3010) IV PRN (19:25)
[2021-04-23] MEDS ORDERED: ONDANSETRON 4MG/2ML VIAL IV PRN (19:25)
[2021-04-23] MEDS ORDERED: HYDROMORPHONE HCL 0.5 MG/ 0.5 ML SYRINGE (J1170 PER 1) IV PRN (19:25)
[2021-04-23] MEDS ORDERED: LR 1,000 ML IV SCH (19:25)
[2021-04-23] MEDS ORDERED: oxyCODONE 5MG TAB PO PRN (19:25)
[2021-04-23] MEDS: CitaloPRAM (CeleXA) 20 MG TAB PO SCH (21:56)
[2021-04-24] VITALS: BP 111/59
[2021-04-24] MEDS: D5W/0.45% SODIUM CHLORIDE 1,000 ML IV SCH ×3 (00:53→22:34)
[2021-04-24 02:00] VITALS: BP 108/54
[2021-04-24] MEDS: VANCOMYCIN HCL 750 MG, VIAL MATE ADAPTER 1 EACH in NS 250 ML IV SCH ×2 (02:27→15:29)
[2021-04-24] MEDS: PIPERACILLIN/TAZOBACTAM SOD 3.375 GM in D5W MINI-BAG PLUS 50 ML IV SCH ×4 (04:23→22:35)
[2021-04-24 06:00] VITALS: BP 117/73
[2021-04-24] MEDS: MIRALAX *UNIT DOSE* 17GM PACKET PO SCH ×2 (08:03→22:34)
[2021-04-24] MEDS: LACTULOSE 20 GM/30 ML SYRUP UD PO SCH ×2 (08:04→21:00)
[2021-04-24] MEDS: SIMETHICONE 80MG CHEW TAB PO SCH ×2 (08:26→22:34)
[2021-04-24] MEDS: DOCUSATE SODIUM 100MG CAPSULE PO SCH ×2 (08:26→22:33)
[2021-04-24] MEDS: ACETAMINOPHEN TAB 650MG DOSE (2X325MG) PO PRN ×3 (08:26→17:17)
[2021-04-24] MEDS: DANTROLENE 25 MG CAP PO SCH ×3 (08:26→22:33)
[2021-04-24] MEDS: CIPRODEX OTIC SUSP 7.5ML AU SCH ×2 (08:26→22:34)
[2021-04-24] MEDS: CYCLOBENZAPRINE 10MG TABLET PO SCH ×3 (08:26→22:34)
[2021-04-24] MEDS: diazePAM 2 MG TAB PO SCH ×3 (08:26→22:34)
[2021-04-24] MEDS: ENOXAPARIN 40MG/0.4ML SYRINGE (J1650 PER 10MG) SC SCH (08:39)
--- NOTE | 2021-04-24 09:09 | RO ---
OPERATIVE NOTE DATE OF OPERATION: 04/23/2021 PREOPERATIVE DIAGNOSIS: Perianal and perirectal abscess. POSTOPERATIVE DIAGNOSIS: Perianal and perirectal abscess. PROCEDURE: Robotic-assisted sigmoid resection with diverting colostomy followed by rectal exam under anesthesia and wound cultures. SURGEON: Talha Pederson DO GLASS FITTER: None. ANESTHESIA: General. EBL: 5. COMPLICATIONS: None. INDICATIONS FOR PROCEDURE: The patient is a 30-year-old male with history of recent perirectal abscess, status post incision and drainage and sharp debridement. He has had persistent infection as well as elevated white count. Recommendation was to proceed with diverting colostomy. Risks and benefits of the procedure not limited to but including bleeding, infection, hernias, damage to surrounding structures, need for further surgery was discussed in detail with the patient's parents, informed consent was obtained and procedure was planned. DESCRIPTION OF PROCEDURE: The patient was brought back to operating room 7. After sufficient sedation the abdomen was sterilely prepped and draped. Time out was done to confirm proper patient and proper procedure. 8 mm incision was made in left upper quadrant, Veress needle was inserted and the abdomen was insufflated to 15 mmHg. Veress needle was then removed and 8 mm Optiview port was used to gain access to the abdomen. Once the abdomen was entered three more ports were placed, one in the left mid abdomen, one in right upper quadrant, one in right lower quadrant. The robot was then docked to the ports. From the console the sigmoid colon was identified. It was elevated superiorly. Window was created in the mesentery and then 60 mm blue load stapler was used to transect at the rectosigmoid junction. Sigmoid colon was then dissected free through the mesentery heading superiorly approximately 10 cm or so until it was freely mobile, enough to bring up to the left lower quadrant. Once that was completed it was grabbed with grasper from right port site. The robot was then undocked, abdomen was desufflated. The port site in left mid abdomen was then opened up large enough to accept the ostomy. Sigmoid colon was then brought out through there. The distal 5 cm was resected and then the ostomy was matured using 3-0 Vicryl sutures. Once that was completed the abdomen was cleaned and dried, abimael were placed at the port sites. The ostomy was covered with ostomy appliance. The patient was placed onto his side, perirectal area was examined. There was still some significant induration deep into the tissues, no fluctuance appreciated on rectal exam or palpation of the perianal area. The wounds that I had debrided last week looked much improved. There is still stool covering all the surfaces but there is good pink granulation tissue beneath that. We washed the area out thoroughly, did some cultures into the deep pockets for aerobic, anaerobic, Gram stain and fungal. Once that was completed the patient was rotated back on his back, awakened from anesthesia and sent to PACU in stable condition.
[2021-04-24 09:42] LABS: BASO # 0.1 10^3/uL (0.0-0.2); BASO % 0.3 % (0.0-1.0); EOS # 0.2 10^3/uL (0.0-0.5); EOS % 0.7 % (0.0-3.0); HEMATOCRIT 41.1 % (42.0-52.0); HEMOGLOBIN 13.3 g/dl (13.5-17.5); LYMPH # 1.6 10^3/uL (1.5-5.0); MEAN CORPUSCULAR HEMOGLOBIN 28.9 pg (27.0-33.0); MEAN CORPUSCULAR HGB CONC 32.4 g/dl (32.0-36.5); MEAN CORPUSCULAR VOLUME 89.2 fl (80.0-96.0); MONO # 1.7 10^3/uL (0.0-0.8); MONO % 8.1 % (2.0-8.0); NEUTROPHILS # 16.7 10^3/uL (1.5-8.5); NEUTROPHILS % 81.8 % (36.0-66.0); PLATELET COUNT, AUTOMATED 634 10^3/uL (150-450); RED BLOOD COUNT 4.61 10^6/uL (4.30-6.10)
[2021-04-24 10:00] VITALS: BP 120/72
[2021-04-24 10:05] LABS: BLOOD UREA NITROGEN 7 MG/DL (7-18); CALCIUM LEVEL 8.8 MG/DL (8.5-10.1); CARBON DIOXIDE LEVEL 27 MEQ/L (21-32); CHLORIDE LEVEL 108 MEQ/L (98-107); GLOMERULAR FILTRATION RATE > 60.0 (>60); GLUCOSE, FASTING 140 MG/DL (70-100); POTASSIUM SERUM 4.3 MEQ/L (3.5-5.1); SODIUM LEVEL 141 MEQ/L (136-145); VANCOMYCIN LEVEL TROUGH 23.6 UG/ML (10.0-20.0)
--- NOTE | 2021-04-24 10:05 | IPNPDOC ---
Text Note Date of Service The patient was seen on 04/24/21. NOTE No acute events overnight. No problems with fevers. His ostomy is producing lots of air, but no stool yet. VSSAF NAD abd - soft, nt, nd, ostomy is in place. There is some edema with it, and air in bag. No stool yet. A) 30y/o male with necrotic tissue with abscess in the perianal and perirectal area. s/p sharp excisional debridement of posterior anus and rectum POD#1 s/p diverting colostomy P) reg diet ostomy care stool softeners cultures pending may need IR drainage if WBC do not improve Jose Angel Pederson DO VS,Fishbone, I+O VS, Fishbone, I+O Vital Signs Date Time Temp Pulse Resp B/P (MAP) Pulse Ox O2 Delivery O2 Flow Rate FiO2 04/24/21 06:00 97.8 101 17 117/73 (88) 97 Room Air I&O- Last 24 Hours up to 6 AM 04/24/21 05:59 Intake Total 925 ml Output Total 5 ml Balance 920 ml MOUNIKA PEDERSON DO Apr 24, 2021 10:05
[2021-04-24 10:08] LABS: WHITE BLOOD COUNT 20.4 10^3/uL (4.0-10.0)
--- NOTE | 2021-04-24 10:58 | IPNPDOC ---
Subjective Date Seen The patient was seen on 04/24/21. Subjective Chief Complaint/HPI Mr. Lazo is a 30 year old male [facility] resident who is here for perianal abscess. Yesterday, general surgery, Dr. Pederson, took patient to the OR for sigmoid resection with diverting colonoscopy and examination of the perianal abscess with wound cultures. Perianal abscess area indurated, general surgery recommends watching WBC. If continues to increase, patient may need IR to drain. Otherwise, Patient is non-verbal at baseline. Does not appear to be in distress. Per nursing, patient has liquid stool with some blood. Objective Physical Examination General Exam: Positive: No Acute Distress Eye Exam: Negative: Sclera icteric Chest Exam: Positive: Clear to auscultation; Negative: Wheezing Heart Exam: Positive: Rate Normal, Regular Rhythm Abdomen Exam: Positive: Normal bowel sounds, Soft Extremity Exam: Negative: Edema Assessment /Plan Assessment Mr. Lazo is a 30 year old male [facility] resident who is here for perianal abscess. Yesterday, general surgery, Dr. Pederson, took patient to the OR for sigmoid resection with diverting colonoscopy and examination of the perianal abscess with wound cultures. On 04/16/21, patient was taken to the OR for debridement. Patient's leukocytosis continued to increase despite debridement and patient was taken back to the OR on 04/23/21 for diverting colonoscopy and re-evaluation of perianal area. Still indurated, patient may need IR to drain if leukocytosis does not improve. Plan/VTE VTE Prophylaxis Ordered?: Yes Plan 1. Perianal abscess -Seen on CT pelvis -Continues on Zosyn, unclear if source control has been achieved as second CT pelvis demonstrates phlegmonous collection or early abscess formation. There was induration on re-evaluation by general surgery. If no improvement in leukocytosis in the next few days, consider IR for drainage. 2. Cerebral palsy with severe intellectual disability -Patient is a resident of [facility] 3. 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 DVT ppx -Will continue Lovenox tomorrow Disposition: Pending improvement in WBC and recommendations from general surgery VS, I&O, 24H, Fishbone Vital Signs/I&O Vital Signs Date Time Temp Pulse Resp B/P (MAP) Pulse Ox O2 Delivery O2 Flow Rate FiO2 04/24/21 10:00 96.4 70 18 120/72 (88) 80 Room Air I&O- Last 24 Hours up to 6 AM 04/24/21 06:00 Intake Total 1100 ml Output Total 5 ml Balance 1095 ml Laboratory Data 24H LABS Laboratory Tests 2 04/23/21 11:48: Coronavirus (COVID-19)(PCR) NEGATIVE 04/24/21 09:27: Immature Granulocyte % (Auto) 1.1, Neutrophils (%) (Auto) 81.8H, Lymphocytes (%) (Auto) 8.0L, Monocytes (%) (Auto) 8.1H, Eosinophils (%) (Auto) 0.7, Basophils (%) (Auto) 0.3, Neutrophils # (Auto) 16.7H, Lymphocytes # (Auto) 1.6, Monocytes # (Auto) 1.7H, Eosinophils # (Auto) 0.2, Basophils # (Auto) 0.1, Nucleated Red Blood Cells % (auto) 0.0, Anion Gap 6L, Glomerular Filtration Rate > 60.0, Calcium Level 8.8, Vancomycin Level Trough 23.6H CBC/BMP Laboratory Tests 04/24/21 09:27 Microbiology Microbiology 04/23/21 Gram Stain - Final, Resulted 04/23/21 Wound Culture, Resulted Pending 04/23/21 Fungal Smear, Received Pending 04/23/21 Fungal Culture, Received Pending 04/23/21 Anaerobic Culture, Received Pending 04/23/21 Gram Stain - Final, Resulted 04/23/21 Wound Culture, Resulted Pending 04/16/21 Blood Culture - Final, Complete NO GROWTH AFTER 5 DAYS 04/16/21 Blood Culture - Final, Complete NO GROWTH AFTER 5 DAYS AURORA MAXWELL DO Apr 24, 2021 10:58
[2021-04-24 14:00] VITALS: BP 118/81
[2021-04-24] MEDS ORDERED: MIRALAX *UNIT DOSE* 17GM PACKET PO ONE (15:55)
[2021-04-24] MEDS: IBUPROFEN 400MG TAB PO PRN (17:18)
[2021-04-24] MEDS: LORazepam 2 MG/ML VIAL IV PRN (19:04)
[2021-04-24 22:00] VITALS: BP 119/72
[2021-04-24] MEDS: CitaloPRAM (CeleXA) 20 MG TAB PO SCH (22:33)
[2021-04-25] MEDS: VANCOMYCIN HCL 750 MG, VIAL MATE ADAPTER 1 EACH in NS 250 ML IV SCH (03:23)
[2021-04-25] MEDS: D5W/0.45% SODIUM CHLORIDE 1,000 ML IV SCH ×2 (05:39→15:54)
[2021-04-25] MEDS: PIPERACILLIN/TAZOBACTAM SOD 3.375 GM in D5W MINI-BAG PLUS 50 ML IV SCH (05:44)
[2021-04-25 06:00] VITALS: BP 126/76
[2021-04-25 06:15] LABS: BASO # 0.1 10^3/uL (0.0-0.2); BASO % 0.6 % (0.0-1.0); EOS # 0.5 10^3/uL (0.0-0.5); EOS % 2.7 % (0.0-3.0); HEMATOCRIT 43.5 % (42.0-52.0); HEMOGLOBIN 13.6 g/dl (13.5-17.5); LYMPH # 1.7 10^3/uL (1.5-5.0); LYMPH % 9.7 % (24.0-44.0); MEAN CORPUSCULAR HEMOGLOBIN 28.7 pg (27.0-33.0); MEAN CORPUSCULAR HGB CONC 31.3 g/dl (32.0-36.5); MEAN CORPUSCULAR VOLUME 91.8 fl (80.0-96.0); MONO # 1.9 10^3/uL (0.0-0.8); MONO % 10.9 % (2.0-8.0); NEUTROPHILS # 13.3 10^3/uL (1.5-8.5); NEUTROPHILS % 75.2 % (36.0-66.0); PLATELET COUNT, AUTOMATED 651 10^3/uL (150-450); RED BLOOD COUNT 4.74 10^6/uL (4.30-6.10)
[2021-04-25 06:39] LABS: BLOOD UREA NITROGEN 17 MG/DL (7-18); CARBON DIOXIDE LEVEL 27 MEQ/L (21-32); CHLORIDE LEVEL 108 MEQ/L (98-107); CREATININE FOR GFR 1.44 MG/DL (0.70-1.30); GLOMERULAR FILTRATION RATE > 60.0 (>60); GLUCOSE, FASTING 95 MG/DL (70-100); POTASSIUM SERUM 4.1 MEQ/L (3.5-5.1); SODIUM LEVEL 138 MEQ/L (136-145)
[2021-04-25 07:08] LABS: WHITE BLOOD COUNT 17.7 10^3/uL (4.0-10.0)
[2021-04-25] MEDS: MIRALAX *UNIT DOSE* 17GM PACKET PO SCH ×2 (08:34→21:00)
[2021-04-25] MEDS: ENOXAPARIN 40MG/0.4ML SYRINGE (J1650 PER 10MG) SC SCH (08:34)
[2021-04-25] MEDS: CYCLOBENZAPRINE 10MG TABLET PO SCH ×3 (08:34→22:09)
[2021-04-25] MEDS: LACTULOSE 20 GM/30 ML SYRUP UD PO SCH ×2 (08:34→21:00)
[2021-04-25] MEDS: IBUPROFEN 400MG TAB PO PRN ×2 (08:34→18:00)
[2021-04-25] MEDS: DANTROLENE 25 MG CAP PO SCH ×3 (08:34→22:09)
[2021-04-25] MEDS: SIMETHICONE 80MG CHEW TAB PO SCH ×2 (08:34→22:09)
[2021-04-25] MEDS: DOCUSATE SODIUM 100MG CAPSULE PO SCH ×2 (08:34→22:09)
[2021-04-25] MEDS: diazePAM 2 MG TAB PO SCH ×3 (08:37→22:16)
--- NOTE | 2021-04-25 09:36 | IPNPDOC ---
Subjective Date Seen The patient was seen on 04/25/21. Subjective Chief Complaint/HPI Mr. Lazo is a 30 [address] [facility] resident who is here for perianal abscess s/p diverting colonoscopy. Patient is non-verbal at baseline. He appears comfortable. Nurse feeding him breakfast. There is output in the ostomy. One set of wound cultures returned with E.coli resistant to Zosyn. In addition, patient had worsening renal function. Zosyn was changed to Meropenem. Objective Physical Examination General Exam: Positive: No Acute Distress Eye Exam: Negative: Sclera icteric Chest Exam: Positive: Clear to auscultation; Negative: Wheezing Heart Exam: Positive: Rate Normal, Regular Rhythm Abdomen Exam: Positive: Normal bowel sounds, Soft Extremity Exam: Negative: Edema Assessment /Plan Assessment Mr. Lazo is a [address] [facility] resident who is here for perianal abscess. Yesterday, general surgery, Dr. Pederson, took patient to the OR for sigmoid resection with diverting colonoscopy and examination of the perianal abscess with wound cultures. On 04/16/21, patient was taken to the OR for debridement. Patient's leukocytosis continued to increase despite debridement and patient was taken back to the OR on 04/23/21 for diverting colonoscopy and re-evaluation of perianal area. Still indurated, patient may need IR to drain if leukocytosis does not improve. One set of cultures grew E.coli resistant to Zosyn. Switched patient to Meropenem. Otherwise, continue monitoring renal function Plan/VTE VTE Prophylaxis Ordered?: Yes Plan 1. Perianal abscess -Seen on CT pelvis -Unclear if source control has been achieved as second CT pelvis demonstrates phlegmonous collection or early abscess formation. There was induration on re- evaluation by general surgery. If no improvement in leukocytosis in the next few days, consider IR for drainage. -One set of wound cultures grew E.coli resistant to Zosyn, so I switched to Meropenem -Vancomycin and Meropenem day 0 2. Cerebral palsy with severe intellectual disability -Patient is a resident of [facility] 3. 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 4. DVT ppx -Will continue Lovenox tomorrow Disposition: Pending improvement in WBC and recommendations from general surgery VS, I&O, 24H, Fishbone Vital Signs/I&O Vital Signs Date Time Temp Pulse Resp B/P (MAP) Pulse Ox O2 Delivery O2 Flow Rate FiO2 04/25/21 06:00 97.0 108 17 126/76 (93) 96 Room Air I&O- Last 24 Hours up to 6 AM 04/25/21 06:00 Intake Total 3225 ml Output Total 75 ml Balance 3150 ml Laboratory Data 24H LABS Laboratory Tests 2 04/25/21 05:52: Immature Granulocyte % (Auto) 0.9, Neutrophils (%) (Auto) 75.2H, Lymphocytes (%) (Auto) 9.7L, Monocytes (%) (Auto) 10.9H, Eosinophils (%) (Auto) 2.7, Basophils (%) (Auto) 0.6, Neutrophils # (Auto) 13.3H, Lymphocytes # (Auto) 1.7, Monocytes # (Auto) 1.9H, Eosinophils # (Auto) 0.5, Basophils # (Auto) 0.1, Nucleated Red Blood Cells % (auto) 0.0, Anion Gap 3L, Glomerular Filtration Rate > 60.0, Calcium Level 9.0 CBC/BMP Laboratory Tests 04/25/21 05:52 Microbiology Microbiology 04/23/21 Gram Stain - Final, Resulted 04/23/21 Wound Culture, Resulted Pending 04/23/21 Fungal Smear, Received Pending 04/23/21 Fungal Culture, Received Pending 04/23/21 Anaerobic Culture, Received Pending 04/23/21 Gram Stain - Final, Complete 04/23/21 Wound Culture - Final, Complete Escherichia Coli Escherichia Coli#2 04/16/21 Blood Culture - Final, Complete NO GROWTH AFTER 5 DAYS 04/16/21 Blood Culture - Final, Complete NO GROWTH AFTER 5 DAYS AURORA MAXWELL DO Apr 25, 2021 09:35
[2021-04-25] MEDS ORDERED: LORazepam 2 MG/ML VIAL As Ordered ONE (09:40)
[2021-04-25] MEDS: LORazepam 2 MG/ML VIAL IV PRN ×2 (09:45→22:59)
--- NOTE | 2021-04-25 10:05 | REP ---
INDICATION: ESTEFANY. COMPARISON: None. TECHNIQUE: Bilateral renal ultrasound FINDINGS: Multiple ultrasonographic images of the right kidney show the right kidney to measure 10 x 6.5 x 4 cm. The renal cortical echotexture is unremarkable. There are no masses. There is good corticomedullary differentiation. There is no hydronephrosis. There are no perinephric fluid collections. Multiple ultrasonographic images of the left kidney show the left kidney to measure 10.9 x 5.1 x 5.1 cm. The renal cortical echotexture is unremarkable. There are no masses. There is good corticomedullary differentiation. There is no hydronephrosis. There are no perinephric fluid collections. Possible additional findings in the pelvis noted when scanning the urinary bladder consistent with CT findings of both 04/16/2021 and 04/22/2021. If further evaluation of the pelvis is necessary then repeat CT scan with oral bowel preparatory contrast administration and intravenous contrast administration. IMPRESSION: Unremarkable renal ultrasonography. Possible additional findings in the pelvis. <Electronically signed by Osito Thomas > 04/25/21 1001
--- NOTE | 2021-04-25 11:28 | IPNPDOC ---
Text Note Date of Service The patient was seen on 04/25/21. NOTE General surgery. Dr. Pederson The patient is a 30-year-old male with cerebral palsy, intellectual disability from [facility] status post I/D perirectal abscess as per Dr. Pederson 04/17/2021, S/P diverting colostomy and debridement of perirectal tissue as per Dr. Pederson 04/23/2021. VSSAF NAD Abdomen soft, nontender, nondistended. Ostomy is in place. There is still some edema of the ostomy,pink in color. stool is noted in the bag this morning, 75 mL stool output documented yesterday WBC 17.7, decreased compared with 20.4 yesterday. 75 mL output stool recorded. Assessment/plan Status post I/D perirectal abscess as per Dr. Pederson 04/17/2021, S/P diverting colostomy and debridement of perirectal tissue as per Dr. Pederson 04/23/2021. Continue with diet Continue with ostomy care Continue bowel care Buttock culture 04/23 with E. coli sensitive to meropenem. Continue to monitor. VS,Fishbone, I+O VS, Fishbone, I+O Laboratory Tests 04/25/21 05:52 Vital Signs Date Time Temp Pulse Resp B/P (MAP) Pulse Ox O2 Delivery O2 Flow Rate FiO2 04/25/21 06:00 97.0 108 17 126/76 (93) 96 Room Air I&O- Last 24 Hours up to 6 AM 04/25/21 06:00 Intake Total 3225 ml Output Total 75 ml Balance 3150 ml Carisa Dubois Apr 25, 2021 11:28
[2021-04-25] MEDS: MEROPENEM INJ 1 GM in IV 1 EA IV SCH ×2 (14:48→22:10)
[2021-04-25] MEDS: ACETAMINOPHEN TAB 650MG DOSE (2X325MG) PO PRN (15:53)
[2021-04-25 22:00] VITALS: BP 118/58
[2021-04-25] MEDS: CitaloPRAM (CeleXA) 20 MG TAB PO SCH (22:10)
[2021-04-26] MEDS: D5W/0.45% SODIUM CHLORIDE 1,000 ML IV SCH ×2 (03:00→13:29)
[2021-04-26] MEDS: MEROPENEM INJ 1 GM in IV 1 EA IV SCH ×3 (05:08→21:14)
[2021-04-26 06:00] VITALS: BP 122/71
[2021-04-26 07:31] LABS: BASO # 0.1 10^3/uL (0.0-0.2); BASO % 0.6 % (0.0-1.0); EOS # 0.4 10^3/uL (0.0-0.5); EOS % 2.8 % (0.0-3.0); HEMATOCRIT 41.7 % (42.0-52.0); HEMOGLOBIN 13.2 g/dl (13.5-17.5); LYMPH # 1.8 10^3/uL (1.5-5.0); LYMPH % 12.3 % (24.0-44.0); MEAN CORPUSCULAR HEMOGLOBIN 28.9 pg (27.0-33.0); MEAN CORPUSCULAR HGB CONC 31.7 g/dl (32.0-36.5); MEAN CORPUSCULAR VOLUME 91.4 fl (80.0-96.0); MONO % 11.5 % (2.0-8.0); NEUTROPHILS # 10.2 10^3/uL (1.5-8.5); NEUTROPHILS % 71.9 % (36.0-66.0); PLATELET COUNT, AUTOMATED 609 10^3/uL (150-450); RED BLOOD COUNT 4.56 10^6/uL (4.30-6.10)
[2021-04-26] MEDS: diazePAM 2 MG TAB PO SCH ×3 (07:51→20:41)
[2021-04-26] MEDS: ACETAMINOPHEN TAB 650MG DOSE (2X325MG) PO PRN ×3 (07:52→20:40)
[2021-04-26] MEDS: SIMETHICONE 80MG CHEW TAB PO SCH ×2 (07:52→20:40)
[2021-04-26] MEDS: CYCLOBENZAPRINE 10MG TABLET PO SCH ×3 (07:52→20:40)
[2021-04-26] MEDS: LACTULOSE 20 GM/30 ML SYRUP UD PO SCH ×2 (07:52→21:00)
[2021-04-26] MEDS: DANTROLENE 25 MG CAP PO SCH ×3 (07:52→20:40)
[2021-04-26] MEDS: DOCUSATE SODIUM 100MG CAPSULE PO SCH ×2 (07:52→20:41)
[2021-04-26] MEDS: MIRALAX *UNIT DOSE* 17GM PACKET PO SCH ×2 (07:53→21:00)
[2021-04-26] MEDS: ENOXAPARIN 40MG/0.4ML SYRINGE (J1650 PER 10MG) SC SCH (07:53)
[2021-04-26 08:04] LABS: MONO # 1.6 10^3/uL (0.0-0.8); WHITE BLOOD COUNT 14.2 10^3/uL (4.0-10.0)
[2021-04-26] MEDS ORDERED: LORazepam 2 MG/ML VIAL As Ordered ONE (08:14)
[2021-04-26] MEDS: LORazepam 2 MG/ML VIAL IV PRN ×2 (08:16→18:11)
--- NOTE | 2021-04-26 08:29 | IPNPDOC ---
Text Note Date of Service The patient was seen on 04/26/21. NOTE No acute events overnight. No problems with fevers. His ostomy is producing lots of air and stool. VSSAF NAD abd - soft, nt, nd, ostomy is in place. edema is slightly improved, and there is stool and air in the bag skin - erythema in the perineal area is still present, but it is improved, the drainage and induration have decreased. A) 30y/o male with necrotic tissue with abscess in the perianal and perirectal area. s/p sharp excisional debridement of posterior anus and rectum s/p diverting colostomy P) reg diet ostomy care stool softeners cultures pending remove abimael in 2 weeks will follow Jose Angel Pederson DO VS,Eva, I+O VSEva I+O Laboratory Tests 04/26/21 07:13 Vital Signs Date Time Temp Pulse Resp B/P (MAP) Pulse Ox O2 Delivery O2 Flow Rate FiO2 04/26/21 06:00 97.3 106 17 122/71 (88) 95 Room Air I&O- Last 24 Hours up to 6 AM 04/26/21 05:59 Intake Total 3165 ml Balance 3165 ml MOUNIKA PEDERSON DO Apr 26, 2021 08:29
[2021-04-26 08:45] LABS: BLOOD UREA NITROGEN 17 MG/DL (7-18); CALCIUM LEVEL 9.1 MG/DL (8.5-10.1); CARBON DIOXIDE LEVEL 29 MEQ/L (21-32); CHLORIDE LEVEL 107 MEQ/L (98-107); CREATININE FOR GFR 1.44 MG/DL (0.70-1.30); GLOMERULAR FILTRATION RATE > 60.0 (>60); GLUCOSE, FASTING 101 MG/DL (70-100); SODIUM LEVEL 139 MEQ/L (136-145); VANCOMYCIN RANDOM 9.5 UG/ML
[2021-04-26] MEDS ORDERED: VANCOMYCIN HCL 1,000 MG, VIAL MATE ADAPTER 1 EACH in NS 250 ML IV SCH (10:00)
--- NOTE | 2021-04-26 10:40 | IPNPDOC ---
Subjective Date Seen The patient was seen on 04/26/21. Subjective Chief Complaint/HPI Mr. Lazo is a 30 year old male [facility] resident who is here for perianal abscess s/p diverting colonoscopy. Patient is non-verbal at baseline. He was seen in the morning being fed by nurse. He appears comfortable. Pending finalization of second wound culture. Objective Physical Examination General Exam: Positive: No Acute Distress Eye Exam: Negative: Sclera icteric Chest Exam: Positive: Clear to auscultation; Negative: Wheezing Heart Exam: Positive: Rate Normal, Regular Rhythm Abdomen Exam: Positive: Normal bowel sounds, Soft Extremity Exam: Negative: Edema Assessment /Plan Assessment Mr. Lazo is a 30 year old male [facility] resident who is here for perianal abscess. Yesterday, general surgery, Dr. Pederson, took patient to the OR for sigmoid resection with diverting colonoscopy and examination of the perianal abscess with wound cultures. On 04/16/21, patient was taken to the OR for debridement. Patient's leukocytosis continued to increase despite debridement and patient was taken back to the OR on 04/23/21 for diverting colonoscopy and r e-evaluation of perianal area. Still indurated, patient may need IR to drain if leukocytosis does not improve. One set of cultures grew E.coli resistant to Zosyn. Switched patient to Meropenem. Otherwise, continue monitoring renal function. D/C ibuprofen and switched out Zosyn as above Plan/VTE VTE Prophylaxis Ordered?: Yes Plan 1. Perianal abscess -Seen on CT pelvis -Unclear if source control has been achieved as second CT pelvis demonstrates phlegmonous collection or early abscess formation. There was induration on re- evaluation by general surgery. If no improvement in leukocytosis in the next few days, consider IR for drainage. -One set of wound cultures grew E.coli resistant to Zosyn, so I switched to Meropenem -Vancomycin and Meropenem day 1 2. Cerebral palsy with severe intellectual disability -Patient is a resident of [facility] 3. 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 ESTEFANY -Most likely medication induced -Switched out Zosyn -Discontinued Ibuprofen -Supportive care and monitoring 5. DVT ppx -Lovenox Disposition: Pending final wound culture results and recommendations from general surgery VS, I&O, 24H, Fishbone Vital Signs/I&O Vital Signs Date Time Temp Pulse Resp B/P (MAP) Pulse Ox O2 Delivery O2 Flow Rate FiO2 04/26/21 06:00 97.3 106 17 122/71 (88) 95 Room Air I&O- Last 24 Hours up to 6 AM 04/26/21 06:00 Intake Total 2740 ml Balance 2740 ml Laboratory Data 24H LABS Laboratory Tests 2 04/25/21 14:33: Vancomycin Level Trough 22.0H 04/26/21 07:13: Immature Granulocyte % (Auto) 0.9, Neutrophils (%) (Auto) 71.9H, Lymphocytes (%) (Auto) 12.3L, Monocytes (%) (Auto) 11.5H, Eosinophils (%) (Auto) 2.8, Basophils (%) (Auto) 0.6, Neutrophils # (Auto) 10.2H, Lymphocytes # (Auto) 1.8, Monocytes # (Auto) 1.6H, Eosinophils # (Auto) 0.4, Basophils # (Auto) 0.1, Nucleated Red Blood Cells % (auto) 0.0, Anion Gap 3L, Glomerular Filtration Rate > 60.0, Calcium Level 9.1, Random Vancomycin Level 9.5 CBC/BMP Laboratory Tests 04/26/21 07:13 Microbiology Microbiology 04/23/21 Gram Stain - Final, Resulted 04/23/21 Wound Culture - Preliminary, Resulted Escherichia Coli 04/23/21 Fungal Smear, Received Pending 04/23/21 Fungal Culture, Received Pending 04/23/21 Anaerobic Culture, Received Pending 04/23/21 Gram Stain - Final, Complete 04/23/21 Wound Culture - Final, Complete Escherichia Coli Escherichia Coli#2 04/16/21 Blood Culture - Final, Complete NO GROWTH AFTER 5 DAYS 04/16/21 Blood Culture - Final, Complete NO GROWTH AFTER 5 DAYS AURORA MAXWELL DO Apr 26, 2021 10:40
[2021-04-26 14:00] VITALS: BP 119/76
[2021-04-26] MEDS: oxyCODONE 5MG TAB PO PRN (15:33)
[2021-04-26] MEDS: ONDANSETRON 4MG/2ML VIAL IV PRN (17:38)
[2021-04-26] MEDS: CitaloPRAM (CeleXA) 20 MG TAB PO SCH (20:40)
[2021-04-26 22:00] VITALS: BP 119/76
[2021-04-27] MEDS: D5W/0.45% SODIUM CHLORIDE 1,000 ML IV SCH ×3 (02:46→18:36)
[2021-04-27] MEDS: LORazepam 2 MG/ML VIAL IV PRN (04:03)
[2021-04-27] MEDS: MEROPENEM INJ 1 GM in IV 1 EA IV SCH ×3 (05:55→22:01)
[2021-04-27 06:00] VITALS: BP 125/66
[2021-04-27 06:13] LABS: HEMATOCRIT 40.3 % (42.0-52.0); HEMOGLOBIN 12.8 g/dl (13.5-17.5); MEAN CORPUSCULAR HEMOGLOBIN 28.8 pg (27.0-33.0); MEAN CORPUSCULAR HGB CONC 31.8 g/dl (32.0-36.5); MEAN CORPUSCULAR VOLUME 90.8 fl (80.0-96.0); RED BLOOD COUNT 4.44 10^6/uL (4.30-6.10)
[2021-04-27 06:14] LABS: BASO # 0.1 10^3/uL (0.0-0.2); BASO % 0.5 % (0.0-1.0); EOS # 0.4 10^3/uL (0.0-0.5); EOS % 2.6 % (0.0-3.0); LYMPH # 1.1 10^3/uL (1.5-5.0); LYMPH % 7.2 % (24.0-44.0); MONO # 1.8 10^3/uL (0.0-0.8); MONO % 12.2 % (2.0-8.0); NEUTROPHILS # 11.4 10^3/uL (1.5-8.5); NEUTROPHILS % 76.6 % (36.0-66.0); PLATELET COUNT, AUTOMATED 572 10^3/uL (150-450)
[2021-04-27 06:15] LABS: WHITE BLOOD COUNT 14.9 10^3/uL (4.0-10.0)
[2021-04-27 06:29] LABS: BLOOD UREA NITROGEN 14 MG/DL (7-18); CALCIUM LEVEL 9.2 MG/DL (8.5-10.1); CARBON DIOXIDE LEVEL 28 MEQ/L (21-32); CHLORIDE LEVEL 104 MEQ/L (98-107); CREATININE FOR GFR 1.23 MG/DL (0.70-1.30); GLOMERULAR FILTRATION RATE > 60.0 (>60); GLUCOSE, FASTING 92 MG/DL (70-100); POTASSIUM SERUM 4.6 MEQ/L (3.5-5.1); SODIUM LEVEL 139 MEQ/L (136-145)
[2021-04-27] MEDS ORDERED: FLUCONAZOLE 100 MG in IV 1 EA IV SCH (07:25)
--- NOTE | 2021-04-27 08:53 | IPNPDOC ---
Text Note Date of Service The patient was seen on 04/27/21. NOTE No acute events overnight. No problems with fevers. His ostomy is producing lots of air and stool. VSSAF NAD abd - soft, nt, nd, ostomy is in place. edema is slightly improved, and there is stool and air in the bag skin - erythema in the perineal area is still present, but it is improved, the drainage and induration have decreased. Cultures - positive for yeast and e.coli A) 30y/o male with necrotic tissue with abscess in the perianal and perirectal area. s/p sharp excisional debridement of posterior anus and rectum s/p diverting colostomy P) reg diet ostomy care stool softeners add fluconazole due to yeast remove abimael in 2 weeks will follow Eva Matias, I+O Eva RUIZ, I+O Laboratory Tests 04/27/21 05:40 Vital Signs Date Time Temp Pulse Resp B/P (MAP) Pulse Ox O2 Delivery O2 Flow Rate FiO2 04/27/21 06:00 99.0 112 18 125/66 (85) 96 Room Air I&O- Last 24 Hours up to 6 AM 04/27/21 05:59 Intake Total 1694 ml Output Total 1203 ml Balance 491 ml MOUNIKA CONNORS DO Apr 27, 2021 08:53
[2021-04-27] MEDS: diazePAM 2 MG TAB PO SCH ×3 (09:31→22:05)
[2021-04-27] MEDS: ENOXAPARIN 40MG/0.4ML SYRINGE (J1650 PER 10MG) SC SCH (09:32)
[2021-04-27] MEDS: DANTROLENE 25 MG CAP PO SCH ×3 (09:32→22:04)
[2021-04-27] MEDS: CYCLOBENZAPRINE 10MG TABLET PO SCH ×3 (09:33→22:05)
[2021-04-27] MEDS: FLUCONAZOLE 400 MG in IV 1 EA IV SCH (10:34)
[2021-04-27] MEDS: LACTULOSE 20 GM/30 ML SYRUP UD PO SCH ×2 (11:19→21:00)
[2021-04-27] MEDS: DOCUSATE SODIUM 100MG CAPSULE PO SCH ×2 (11:20→21:00)
[2021-04-27] MEDS: MIRALAX *UNIT DOSE* 17GM PACKET PO SCH ×2 (11:20→21:00)
[2021-04-27] MEDS: SIMETHICONE 80MG CHEW TAB PO SCH ×2 (11:20→22:04)
--- NOTE | 2021-04-27 12:33 | IPNPDOC ---
Subjective Date Seen The patient was seen on 04/27/21. Subjective Chief Complaint/HPI Mr. Lazo is a 30 year old male [facility] resident who is here for perianal abscess s/p diverting colostomy. This morning, he appears comfortable. Both wound cultures returned with two types of E.coli. One culture grew yeast like organisms. General surgery started patient on fluconazole. Otherwise, can consider Ciprofloxacin and Metronidazole as oral options closer to discharge. Otherwise, renal function improving Objective Physical Examination General Exam: Positive: No Acute Distress Eye Exam: Negative: Sclera icteric Chest Exam: Positive: Clear to auscultation; Negative: Wheezing Heart Exam: Positive: Rate Normal, Regular Rhythm Abdomen Exam: Positive: Normal bowel sounds, Soft Extremity Exam: Negative: Edema Assessment /Plan Assessment Mr. Lazo is a 30 year old male [facility] resident who is here for perianal abscess. Yesterday, general surgery, Dr. Pederson, took patient to the OR for sigmoid resection with diverting colonoscopy and examination of the perianal abscess with wound cultures. On 04/16/21, patient was taken to the OR for debridement. Patient's leukocytosis continued to increase despite debridement and patient was taken back to the OR on 04/23/21 for diverting colonoscopy and re-evaluation of perianal area. Still indurated, patient may need IR to drain if leukocytosis does not improve. Wound cultures x2 grew two types of E.coli which have some resistance to Zosyn. Switched patient to Meropenem. One wound culture grew yeast like organisms. General surgery started patient on Fluconazole. Otherwise, can consider cip rofloxacin and metronidazole as oral options closer to discharge. Otherwise, continue monitoring renal function. D/C ibuprofen and switched out Zosyn as above. Renal function improving Plan/VTE VTE Prophylaxis Ordered?: Yes Plan 1. Perianal abscess -Seen on CT pelvis -Unclear if source control has been achieved as second CT pelvis demonstrates phlegmonous collection or early abscess formation. There was induration on re- evaluation by general surgery. If no improvement in leukocytosis in the next few days, consider IR for drainage. -Both wound cultures grew two types of E.coli which had some resistance to Zosyn, so I switched to Meropenem -Can consider ciprofloxacin and metronidazole closer to discharge -Meropenem day 2 2. Cerebral palsy with severe intellectual disability -Patient is a resident of [facility] 3. 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 ESTEFANY -Most likely medication induced -Switched out Zosyn -Discontinued Ibuprofen -Supportive care and monitoring 5. DVT ppx -Lovenox Disposition: Pending clinical improvement VS, I&O, 24H, Fishbone Vital Signs/I&O Vital Signs Date Time Temp Pulse Resp B/P (MAP) Pulse Ox O2 Delivery O2 Flow Rate FiO2 04/27/21 06:00 99.0 112 18 125/66 (85) 96 Room Air I&O- Last 24 Hours up to 6 AM 04/27/21 06:00 Intake Total 1094 ml Output Total 2203 ml Balance -1109 ml Laboratory Data 24H LABS Laboratory Tests 2 04/27/21 05:40: Immature Granulocyte % (Auto) 0.9, Neutrophils (%) (Auto) 76.6H, Lymphocytes (%) (Auto) 7.2L, Monocytes (%) (Auto) 12.2H, Eosinophils (%) (Auto) 2.6, Basophils (%) (Auto) 0.5, Neutrophils # (Auto) 11.4H, Lymphocytes # (Auto) 1.1L, Monocytes # (Auto) 1.8H, Eosinophils # (Auto) 0.4, Basophils # (Auto) 0.1, Nucleated Red Blood Cells % (auto) 0.0, Anion Gap 7L, Glomerular Filtration Rate > 60.0, Calcium Level 9.2 CBC/BMP Laboratory Tests 04/27/21 05:40 Microbiology Microbiology 04/23/21 Gram Stain - Final, Complete 04/23/21 Wound Culture - Final, Complete Escherichia Coli#2 Escherichia Coli Yeast Like Organism 04/23/21 Fungal Smear, Received Pending 04/23/21 Fungal Culture, Received Pending 04/23/21 Anaerobic Culture, Received Pending 04/23/21 Gram Stain - Final, Complete 04/23/21 Wound Culture - Final, Complete Escherichia Coli Escherichia Coli#2 AURORA MAXWELL DO Apr 27, 2021 12:33
[2021-04-27 14:00] VITALS: BP 120/76
[2021-04-27] MEDS: ACETAMINOPHEN TAB 650MG DOSE (2X325MG) PO PRN (14:53)
[2021-04-27] MEDS: oxyCODONE 5MG TAB PO PRN (18:37)
[2021-04-27 22:00] VITALS: BP 134/66
[2021-04-27] MEDS: CitaloPRAM (CeleXA) 20 MG TAB PO SCH (22:05)
[2021-04-28] MEDS: MEROPENEM INJ 1 GM in IV 1 EA IV SCH ×3 (05:12→23:11)
[2021-04-28] MEDS: D5W/0.45% SODIUM CHLORIDE 1,000 ML IV SCH ×2 (05:14→20:55)
[2021-04-28 06:00] VITALS: BP 125/82
[2021-04-28 06:13] LABS: BASO # 0.1 10^3/uL (0.0-0.2); BASO % 0.4 % (0.0-1.0); EOS # 0.3 10^3/uL (0.0-0.5); EOS % 1.4 % (0.0-3.0); HEMOGLOBIN 12.8 g/dl (13.5-17.5); LYMPH # 1.9 10^3/uL (1.5-5.0); LYMPH % 9.6 % (24.0-44.0); MEAN CORPUSCULAR HEMOGLOBIN 28.4 pg (27.0-33.0); MEAN CORPUSCULAR HGB CONC 31.2 g/dl (32.0-36.5); MEAN CORPUSCULAR VOLUME 90.9 fl (80.0-96.0); MONO % 13.8 % (2.0-8.0); NEUTROPHILS # 14.9 10^3/uL (1.5-8.5); NEUTROPHILS % 74.1 % (36.0-66.0); PLATELET COUNT, AUTOMATED 553 10^3/uL (150-450); RED BLOOD COUNT 4.51 10^6/uL (4.30-6.10)
[2021-04-28 06:29] LABS: BLOOD UREA NITROGEN 15 MG/DL (7-18); CARBON DIOXIDE LEVEL 28 MEQ/L (21-32); CHLORIDE LEVEL 102 MEQ/L (98-107); CREATININE FOR GFR 1.36 MG/DL (0.70-1.30); GLOMERULAR FILTRATION RATE > 60.0 (>60); GLUCOSE, FASTING 103 MG/DL (70-100); POTASSIUM SERUM 4.8 MEQ/L (3.5-5.1); SODIUM LEVEL 137 MEQ/L (136-145)
[2021-04-28 07:07] LABS: WHITE BLOOD COUNT 20.1 10^3/uL (4.0-10.0)
[2021-04-28 07:08] LABS: MONO # 2.8 10^3/uL (0.0-0.8)
[2021-04-28 08:48] LABS: ERYTHROCYTE SEDIMENTATION RATE 63 mm/hr (0-15)
[2021-04-28] MEDS: DANTROLENE 25 MG CAP PO SCH ×3 (10:32→23:04)
[2021-04-28] MEDS: CYCLOBENZAPRINE 10MG TABLET PO SCH ×3 (10:33→23:04)
[2021-04-28] MEDS: ENOXAPARIN 40MG/0.4ML SYRINGE (J1650 PER 10MG) SC SCH (10:33)
[2021-04-28] MEDS: DOCUSATE SODIUM 100MG CAPSULE PO SCH ×2 (10:33→21:00)
[2021-04-28] MEDS: LACTULOSE 20 GM/30 ML SYRUP UD PO SCH ×2 (10:33→21:00)
[2021-04-28] MEDS: SIMETHICONE 80MG CHEW TAB PO SCH ×2 (10:33→23:04)
[2021-04-28] MEDS: ACETAMINOPHEN TAB 650MG DOSE (2X325MG) PO PRN (11:10)
[2021-04-28] MEDS: diazePAM 2 MG TAB PO SCH ×3 (11:15→23:03)
[2021-04-28] MEDS: MIRALAX *UNIT DOSE* 17GM PACKET PO SCH ×2 (11:15→21:00)
[2021-04-28] MEDS: FLUCONAZOLE 400 MG in IV 1 EA IV SCH (12:17)
[2021-04-28] MEDS: oxyCODONE 5MG TAB PO PRN (12:18)
[2021-04-28 14:00] VITALS: BP 116/63
--- NOTE | 2021-04-28 15:07 | IPNPDOC ---
Subjective Date Seen The patient was seen on 04/28/21. Subjective Chief Complaint/HPI Mr. Lazo is a 30 year old male [facility] resident who is here for perianal abscess s/p diverting colostomy. He was seen this morning, sleeping in bed. In no apparent distress. WBC increased up to 20 from 15 today. Gen Surg ordered for CT abd/pelvis. Otherwise, no fever. Objective Physical Examination General Exam: Positive: No Acute Distress Eye Exam: Negative: Sclera icteric Chest Exam: Positive: Clear to auscultation; Negative: Wheezing Heart Exam: Positive: Rate Normal, Regular Rhythm Abdomen Exam: Positive: Normal bowel sounds, Soft Extremity Exam: Negative: Edema Assessment /Plan Assessment Mr. Lazo is a 30 year old male [facility] resident who is here for perianal abscess. Yesterday, general surgery, Dr. Pederson, took patient to the OR for sigmoid resection with diverting colonoscopy and examination of the perianal abscess with wound cultures. On 04/16/21, patient was taken to the OR for debridement. Patient's leukocytosis continued to increase despite debridement and patient was taken back to the OR on 04/23/21 for diverting colonoscopy and re-evaluation of perianal area. Still indurated, patient may need IR to drain if leukocytosis does not improve. Wound cultures x2 grew two types of E.coli which have some resistance to Zosyn. Switched patient to Meropenem. One wound culture grew yeast like organisms. General surgery started patient on Fluconazole. Otherwise, can consider ciprofloxacin and metronidazole as oral options closer to discharge. Otherwise, continue monitoring renal function. D/C ibuprofen and switched out Z osyn as above. 04/28/21 Patient has increasing leukocytosis. Repeat CT abd/pelvis was ordered. No fever at this time. Patient is on Merrem. Plan/VTE VTE Prophylaxis Ordered?: Yes Plan 1. Perianal abscess -Seen on CT pelvis -Unclear if source control has been achieved as second CT pelvis demonstrates phlegmonous collection or early abscess formation. There was induration on re- evaluation by general surgery. If no improvement in leukocytosis in the next few days, consider IR for drainage. -Both wound cultures grew two types of E.coli which had some resistance to Zosyn, so I switched to Meropenem -Can consider ciprofloxacin and metronidazole closer to discharge -Meropenem day 3 2. Cerebral palsy with severe intellectual disability -Patient is a resident of [facility] 3. 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 ESTEFANY -Most likely medication induced -Switched out Zosyn -Discontinued Ibuprofen -Supportive care and monitoring 5. DVT ppx -Lovenox Disposition: Pending clinical improvement VS, I&O, 24H, Fishbone Vital Signs/I&O Vital Signs Date Time Temp Pulse Resp B/P (MAP) Pulse Ox O2 Delivery O2 Flow Rate FiO2 04/28/21 12:48 18 Room Air 04/28/21 06:00 98.7 99 125/82 (96) 96 I&O- Last 24 Hours up to 6 AM 04/28/21 05:59 Intake Total 2630 ml Output Total 3050 ml Balance -420 ml Laboratory Data 24H LABS Laboratory Tests 2 04/28/21 05:41: Immature Granulocyte % (Auto) 0.7, Neutrophils (%) (Auto) 74.1H, Lymphocytes (%) (Auto) 9.6L, Monocytes (%) (Auto) 13.8H, Eosinophils (%) (Auto) 1.4, Basophils (%) (Auto) 0.4, Neutrophils # (Auto) 14.9H, Lymphocytes # (Auto) 1.9, Monocytes # (Auto) 2.8H, Eosinophils # (Auto) 0.3, Basophils # (Auto) 0.1, Nucleated Red Blood Cells % (auto) 0.0, Erythrocyte Sedimentation Rate 63H, Anion Gap 7L, G lomerular Filtration Rate > 60.0, Calcium Level 9.0, C-Reactive Protein, Quantitative 10.10H CBC/BMP Laboratory Tests 04/28/21 05:41 Microbiology Microbiology 04/23/21 Gram Stain - Final, Complete 04/23/21 Wound Culture - Final, Complete Escherichia Coli#2 Escherichia Coli Yeast Like Organism 04/23/21 Fungal Smear, Received Pending 04/23/21 Fungal Culture, Received Pending 04/23/21 Anaerobic Culture - Final, Complete Bacteroides Caccae 04/23/21 Gram Stain - Final, Complete 04/23/21 Wound Culture - Final, Complete Escherichia Coli Escherichia Coli#2 AURORA MAXWELL DO Apr 28, 2021 15:07
[2021-04-28] MEDS ORDERED: ISOVUE-370 76% 100ML VIAL As Ordered ONE (16:13)
--- NOTE | 2021-04-28 16:46 | REP ---
INDICATION: abscess. COMPARISON: 04/22/2021 TECHNIQUE: Axial contrast-enhanced images through the pelvis with coronal and sagittal reformations using 100 cc Isovue 370 intravenous contrast material. FINDINGS: Perirectal abscess containing gas and fluid with irregular enhancing rim is inseparable from the rectum in the ischiorectal/presacral space with irregular contour(series 201; images 36-66). Abscess measures roughly 4.2 x 4.5 x 4.5 cm diameter. The sigmoid colon demonstrates mucosal thickening and pericolonic stranding consistent within associated underlying infectious/inflammatory colitis. Remainder of the visualized small and large bowel demonstrates moderate fecal stasis and ostomy via the left anterior abdominal wall. There is no ascites. Bladder and prostate/seminal vesicles appear relatively normal. Evidence for prior right inguinal hernia repair. IMPRESSION: Perirectal abscess as described above similar in appearance and possibly minimally decreased in size when compared with 04/22/2021. <Electronically signed by Guy ySkes > 04/28/21 [id number]
[2021-04-28] MEDS: ONDANSETRON 4MG/2ML VIAL IV PRN (21:11)
[2021-04-28] MEDS ORDERED: ACETAMINOPHEN *IV* 650 MG in IV 1 EA IV ONE (21:30)
[2021-04-28 22:00] VITALS: BP 142/80
[2021-04-28] MEDS: CitaloPRAM (CeleXA) 20 MG TAB PO SCH (23:04)
[2021-04-29] MEDS: D5W/0.45% SODIUM CHLORIDE 1,000 ML IV SCH ×3 (01:01→22:00)
[2021-04-29] MEDS: LORazepam 2 MG/ML VIAL IV PRN (01:42)
[2021-04-29 06:00] VITALS: BP 142/75
[2021-04-29] MEDS: MEROPENEM INJ 1 GM in IV 1 EA IV SCH ×3 (06:00→21:56)
[2021-04-29 06:16] LABS: HEMATOCRIT 41.6 % (42.0-52.0); HEMOGLOBIN 13.1 g/dl (13.5-17.5); MEAN CORPUSCULAR HEMOGLOBIN 28.7 pg (27.0-33.0); MEAN CORPUSCULAR HGB CONC 31.5 g/dl (32.0-36.5); MEAN CORPUSCULAR VOLUME 91.2 fl (80.0-96.0); PLATELET COUNT, AUTOMATED 481 10^3/uL (150-450); RED BLOOD COUNT 4.56 10^6/uL (4.30-6.10); WHITE BLOOD COUNT 16.3 10^3/uL (4.0-10.0)
[2021-04-29 06:50] LABS: BLOOD UREA NITROGEN 17 MG/DL (7-18); CALCIUM LEVEL 8.9 MG/DL (8.5-10.1); CARBON DIOXIDE LEVEL 29 MEQ/L (21-32); CHLORIDE LEVEL 102 MEQ/L (98-107); CREATININE FOR GFR 1.44 MG/DL (0.70-1.30); GLOMERULAR FILTRATION RATE > 60.0 (>60); GLUCOSE, FASTING 112 MG/DL (70-100); POTASSIUM SERUM 4.9 MEQ/L (3.5-5.1); SODIUM LEVEL 134 MEQ/L (136-145)
[2021-04-29] MEDS: DANTROLENE 25 MG CAP PO SCH ×3 (08:56→21:59)
[2021-04-29] MEDS: diazePAM 2 MG TAB PO SCH ×3 (08:56→21:58)
[2021-04-29] MEDS: ENOXAPARIN 40MG/0.4ML SYRINGE (J1650 PER 10MG) SC SCH (08:56)
[2021-04-29] MEDS: SIMETHICONE 80MG CHEW TAB PO SCH ×2 (08:56→21:58)
[2021-04-29] MEDS: LACTULOSE 20 GM/30 ML SYRUP UD PO SCH ×2 (08:56→21:59)
[2021-04-29] MEDS: MIRALAX *UNIT DOSE* 17GM PACKET PO SCH ×3 (08:56→21:00)
[2021-04-29] MEDS: CYCLOBENZAPRINE 10MG TABLET PO SCH ×3 (08:56→21:59)
[2021-04-29] MEDS: DOCUSATE SODIUM 100MG CAPSULE PO SCH ×2 (08:56→21:59)
[2021-04-29] MEDS: FLUCONAZOLE 400 MG in IV 1 EA IV SCH (09:12)
--- NOTE | 2021-04-29 10:07 | IPNPDOC ---
Subjective Date Seen The patient was seen on 04/29/21. Subjective Chief Complaint/HPI Mr. Lazo is a 30 year old male [facility] resident who is here for perianal abscess s/p diverting colostomy. Patient was seen in the morning. He is sleeping comfortably without any signs of distress. Spoke with General Surgery, Dr. Pederson. Patient will need IR to drain abscess Objective Physical Examination General Exam: Positive: No Acute Distress Eye Exam: Negative: Sclera icteric Chest Exam: Positive: Clear to auscultation; Negative: Wheezing Heart Exam: Positive: Rate Normal, Regular Rhythm Abdomen Exam: Positive: Normal bowel sounds, Soft Extremity Exam: Negative: Edema Assessment /Plan Assessment Mr. Lazo is a 30 year old male [facility] resident who is here for perianal abscess. Yesterday, general surgery, Dr. Pederson, took patient to the OR for sigmoid resection with diverting colonoscopy and examination of the perianal abscess with wound cultures. On 04/16/21, patient was taken to the OR for debridement. Patient's leukocytosis continued to increase despite debridement and patient was taken back to the OR on 04/23/21 for diverting colonoscopy and re-evaluation of perianal area. Still indurated, patient may need IR to drain if leukocytosis does not improve. Repeat imaging on 04/28/21 still demonstrates the abscess. Patient will need IR to drain abscess. Wound cultures x2 grew two types of E.coli which have some resistance to Zosyn. Switched patient to Meropenem. One wound culture grew yeast like organisms. General surgery started patient on Fluconazole. Pending Fungal culture. Otherwise, can consider ciprofloxacin and metronidazole as oral options closer to discharge. Otherwise, continue monitoring renal function. D/C ibuprofen and switched out Zosyn as above. Plan/VTE VTE Prophylaxis Ordered?: Yes Plan 1. Perianal abscess -Seen on CT pelvis -Unclear if source control has been achieved as second CT pelvis demonstrates phlegmonous collection or early abscess formation. There was induration on re- evaluation by general surgery. There is no significant improvement on CT and it is becoming more loculated. Patient will need IR to drain abscess -Both wound cultures grew two types of E.coli which had some resistance to Zosyn, so I switched to Meropenem -Meropenem day 4 2. Cerebral palsy with severe intellectual disability -Patient is a resident of [facility] 3. 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 ESTEFANY -Most likely medication induced -Switched out Zosyn -Discontinued Ibuprofen -Supportive care and monitoring 5. DVT ppx -Lovenox Disposition: Pending clinical improvement. Patient will need IR to drain abscess VS, I&O, 24H, Fishbone Vital Signs/I&O Vital Signs Date Time Temp Pulse Resp B/P (MAP) Pulse Ox O2 Delivery O2 Flow Rate FiO2 04/29/21 06:00 97.6 106 19 142/75 (97) 96 Room Air I&O- Last 24 Hours up to 6 AM 04/29/21 06:00 Intake Total 1920 ml Output Total 1925 ml Balance -5 ml Laboratory Data 24H LABS Laboratory Tests 2 04/29/21 05:42: Nucleated Red Blood Cells % (auto) 0.0, Anion Gap 3L, Glomerular Filtration Rate > 60.0, Calcium Level 8.9 CBC/BMP Laboratory Tests 04/29/21 05:42 Microbiology Microbiology 04/23/21 Gram Stain - Final, Complete 04/23/21 Wound Culture - Final, Complete Escherichia Coli#2 Escherichia Coli Yeast Like Organism 04/23/21 Fungal Smear, Received Pending 04/23/21 Fungal Culture, Received Pending 04/23/21 Anaerobic Culture - Final, Complete Bacteroides Caccae 04/23/21 Gram Stain - Final, Complete 04/23/21 Wound Culture - Final, Complete Escherichia Coli Escherichia Coli#2 AURORA MAXWELL DO Apr 29, 2021 10:07
[2021-04-29] MEDS ORDERED: MORPHINE 2 MG/ML 1ML VIAL (J2270) IV ONE (13:15)
[2021-04-29 14:00] VITALS: BP 98/45
[2021-04-29] MEDS ORDERED: NS 1,000 ML IV ONE (15:20)
[2021-04-29] MEDS: CitaloPRAM (CeleXA) 20 MG TAB PO SCH (21:58)
[2021-04-29 22:00] VITALS: BP 109/60
[2021-04-29] MEDS: ACETAMINOPHEN TAB 650MG DOSE (2X325MG) PO PRN (23:27)
[2021-04-30] MEDS: oxyCODONE 5MG TAB PO PRN ×3 (00:07→22:14)
[2021-04-30] MEDS: MEROPENEM INJ 1 GM in IV 1 EA IV SCH (05:07)
[2021-04-30 06:00] VITALS: BP 107/54
[2021-04-30 06:06] LABS: MEAN CORPUSCULAR HEMOGLOBIN 28.9 pg (27.0-33.0); MEAN CORPUSCULAR HGB CONC 31.4 g/dl (32.0-36.5); MEAN CORPUSCULAR VOLUME 91.9 fl (80.0-96.0); PLATELET COUNT, AUTOMATED 374 10^3/uL (150-450); RED BLOOD COUNT 3.81 10^6/uL (4.30-6.10)
[2021-04-30 06:25] LABS: BLOOD UREA NITROGEN 14 MG/DL (7-18); CALCIUM LEVEL 7.4 MG/DL (8.5-10.1); CARBON DIOXIDE LEVEL 28 MEQ/L (21-32); CHLORIDE LEVEL 104 MEQ/L (98-107); GLOMERULAR FILTRATION RATE > 60.0 (>60); GLUCOSE, FASTING 98 MG/DL (70-100); POTASSIUM SERUM 4.4 MEQ/L (3.5-5.1); SODIUM LEVEL 137 MEQ/L (136-145)
[2021-04-30] MEDS: ENOXAPARIN 40MG/0.4ML SYRINGE (J1650 PER 10MG) SC SCH (09:00)
[2021-04-30] MEDS: D5W/0.45% SODIUM CHLORIDE 1,000 ML IV SCH ×2 (09:43→16:01)
[2021-04-30] MEDS: SIMETHICONE 80MG CHEW TAB PO SCH ×2 (09:44→22:12)
[2021-04-30] MEDS: MIRALAX *UNIT DOSE* 17GM PACKET PO SCH ×2 (09:44→22:16)
[2021-04-30] MEDS: diazePAM 2 MG TAB PO SCH ×3 (09:44→22:13)
[2021-04-30] MEDS: LACTULOSE 20 GM/30 ML SYRUP UD PO SCH ×2 (09:44→22:12)
[2021-04-30] MEDS: DOCUSATE SODIUM 100MG CAPSULE PO SCH ×2 (09:44→22:13)
[2021-04-30] MEDS: DANTROLENE 25 MG CAP PO SCH ×3 (09:44→22:12)
[2021-04-30] MEDS: CYCLOBENZAPRINE 10MG TABLET PO SCH ×3 (09:44→22:13)
[2021-04-30] MEDS: FLUCONAZOLE 400 MG in IV 1 EA IV SCH (10:24)
--- NOTE | 2021-04-30 11:01 | IPNPDOC ---
Subjective Date Seen The patient was seen on 04/30/21. Subjective Chief Complaint/HPI Mr. Lazo is a 30 year old male [facility] resident who is here for perianal abscess s/p diverting colostomy. He was seen this morning sleeping comfortably. In no apparent distress. Objective Physical Examination General Exam: Positive: No Acute Distress Eye Exam: Negative: Sclera icteric Chest Exam: Positive: Clear to auscultation; Negative: Wheezing Heart Exam: Positive: Rate Normal, Regular Rhythm Abdomen Exam: Positive: Normal bowel sounds, Soft Extremity Exam: Negative: Edema Assessment /Plan Assessment Mr. Lazo is a 30 year old male [facility] resident who is here for perianal abscess. Yesterday, general surgery, Dr. Pederson, took patient to the OR for sigmoid resection with diverting colonoscopy and examination of the perianal abscess with wound cultures. On 04/16/21, patient was taken to the OR for debridement. Patient's leukocytosis continued to increase despite debridement and patient was taken back to the OR on 04/23/21 for diverting colonoscopy and re-evaluation of perianal area. Still indurated, patient may need IR to drain if leukocytosis does not improve. Repeat imaging on 04/28/21 still demonstrates the abscess. Patient will need IR to drain abscess. Wound cultures x2 grew two types of E.coli which have some resistance to Zosyn. Switched patient to Meropenem, now switched for levofloxacin and metronidazole. One wound culture grew yeast like organisms. General surgery started patient on Fluconazole. Pending Fungal culture. Otherwise, can consider levofloxacin and metronidazole as oral options closer to discharge. Otherwise, continue monitoring renal function. D/C ibuprofen and switched out Zosyn as above. Plan/VTE VTE Prophylaxis Ordered?: Yes Plan 1. Perianal abscess -Seen on CT pelvis -Unclear if source control has been achieved as second CT pelvis demonstrates phlegmonous collection or early abscess formation. There was induration on re- evaluation by general surgery. There is no significant improvement on CT and it is becoming more loculated. Patient will need IR to drain abscess -Both wound cultures grew two types of E.coli which had some resistance to Zosyn, so I switched to Meropenem. Patient now switched to levofloxacin and metronidazole. -Levofloxacin and metronidazole day 5 2. Cerebral palsy with severe intellectual disability -Patient is a resident of [facility] 3. 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 ESTEFANY -Most likely medication induced -Switched out Zosyn -Discontinued Ibuprofen -Supportive care and monitoring 5. DVT ppx -Lovenox Disposition: Pending clinical improvement. Patient will need IR to drain abscess. Will aim for tomorrow for drainage VS, I&O, 24H, Fishbone Vital Signs/I&O Vital Signs Date Time Temp Pulse Resp B/P (MAP) Pulse Ox O2 Delivery O2 Flow Rate FiO2 04/30/21 06:00 97.8 99 18 107/54 (71) 96 Room Air l I&O- Last 24 Hours up to 6 AM 04/30/21 06:00 Intake Total 2010 ml Output Total 1150 ml Balance 860 ml Laboratory Data 24H LABS Laboratory Tests 2 04/30/21 05:50: Nucleated Red Blood Cells % (auto) 0.0, Anion Gap 5L, Glomerular Filtration Rate > 60.0, Calcium Level 7.4#L CBC/BMP Laboratory Tests 04/30/21 05:50 Microbiology Microbiology 04/23/21 Gram Stain - Final, Complete 04/23/21 Wound Culture - Final, Complete Escherichia Coli#2 Escherichia Coli Yeast Like Organism 04/23/21 Fungal Smear, Received Pending 04/23/21 Fungal Culture, Received Pending 04/23/21 Anaerobic Culture - Final, Complete Bacteroides Caccae 04/23/21 Gram Stain - Final, Complete 04/23/21 Wound Culture - Final, Complete Escherichia Coli Escherichia Coli#2 AURORA MAXWELL DO Apr 30, 2021 11:01
[2021-04-30 14:00] VITALS: BP 104/60
[2021-04-30] MEDS: LevoFLOXacin IV 750 MG in IV 1 EA IV SCH (14:23)
[2021-04-30] MEDS: metroNIDAZOLE 500 MG in IV 1 EA IV SCH ×2 (16:01→22:13)
[2021-04-30] MEDS: ACETAMINOPHEN TAB 650MG DOSE (2X325MG) PO PRN (20:37)
[2021-04-30 20:45] VITALS: BP 113/63
[2021-04-30] MEDS: CitaloPRAM (CeleXA) 20 MG TAB PO SCH (22:13)
[2021-05-01] MEDS ORDERED: LORazepam 2 MG/ML VIAL As Ordered ONE (00:47)
[2021-05-01] MEDS: LORazepam 2 MG/ML VIAL IV PRN ×2 (00:50→15:59)
[2021-05-01] MEDS: D5W/0.45% SODIUM CHLORIDE 1,000 ML IV SCH ×3 (00:51→17:10)
[2021-05-01] MEDS: ACETAMINOPHEN TAB 650MG DOSE (2X325MG) PO PRN ×2 (00:57→15:27)
[2021-05-01 06:00] LABS: HEMOGLOBIN 10.4 g/dl (13.5-17.5); MEAN CORPUSCULAR HEMOGLOBIN 28.7 pg (27.0-33.0); MEAN CORPUSCULAR HGB CONC 31.5 g/dl (32.0-36.5); MEAN CORPUSCULAR VOLUME 91.2 fl (80.0-96.0); PLATELET COUNT, AUTOMATED 331 10^3/uL (150-450); RED BLOOD COUNT 3.62 10^6/uL (4.30-6.10); WHITE BLOOD COUNT 9.4 10^3/uL (4.0-10.0)
[2021-05-01] MEDS: metroNIDAZOLE 500 MG in IV 1 EA IV SCH ×3 (06:00→22:03)
[2021-05-01 06:10] VITALS: BP 126/58
[2021-05-01 06:17] LABS: BLOOD UREA NITROGEN 14 MG/DL (7-18); CALCIUM LEVEL 8.4 MG/DL (8.5-10.1); CARBON DIOXIDE LEVEL 28 MEQ/L (21-32); CHLORIDE LEVEL 105 MEQ/L (98-107); CREATININE FOR GFR 1.15 MG/DL (0.70-1.30); GLOMERULAR FILTRATION RATE > 60.0 (>60); GLUCOSE, FASTING 101 MG/DL (70-100); POTASSIUM SERUM 4.7 MEQ/L (3.5-5.1); SODIUM LEVEL 139 MEQ/L (136-145)
--- NOTE | 2021-05-01 08:34 | IPNPDOC ---
Text Note Date of Service The patient was seen on 05/01/21. NOTE General surgery. Dr. Pederson The patient is a 30-year-old male with cerebral palsy, intellectual disability from [facility] status post I/D perirectal abscess as per Dr. Pederson 04/17/2021, S/P diverting colostomy and debridement of perirectal tissue as per Dr. Pederson 04/23/2021. VSSAF NAD Abdomen soft, nontender, nondistended. Ostomy is in place. There is still some edema of the ostomy,pink in color. small amount of stool is noted in the bag this morning with air, 150 mL stool output documented yesterday. WBC 9.4, decreased today. CT 04/28/21 Perirectal abscess as described above similar in appearance and possibly minimally decreased in size when compared with 04/22/2021. <Electronically signed by Guy Sykes > 04/28/21 1642 Assessment/plan Status post I/D perirectal abscess as per Dr. Pederson 04/17/2021, S/P diverting colostomy and debridement of perirectal tissue as per Dr. Pederson 04/23/2021. Continue with diet Continue with ostomy care Continue bowel care IV fluconazole, flagyl, levaquin. Dr. Pederson discussed CT results with radiology this morning, plan is for CT- guided drainage of abscess. Continue to monitor. VS,Fishbone, I+O VS, Fishbone, I+O Laboratory Tests 05/01/21 05:39 Vital Signs Date Time Temp Pulse Resp B/P (MAP) Pulse Ox O2 Delivery O2 Flow Rate FiO2 05/01/21 06:10 96.5 87 20 126/58 (80) 92 Room Air I&O- Last 24 Hours up to 6 AM 05/01/21 05:59 Intake Total 2009 ml Output Total 2300 ml Balance -290 ml Carisa Dubois May 01, 2021 08:34
[2021-05-01] MEDS: MIRALAX *UNIT DOSE* 17GM PACKET PO SCH ×2 (09:00→21:00)
[2021-05-01] MEDS: LACTULOSE 20 GM/30 ML SYRUP UD PO SCH ×2 (09:00→22:00)
[2021-05-01] MEDS: CYCLOBENZAPRINE 10MG TABLET PO SCH ×3 (09:00→22:02)
[2021-05-01] MEDS: ENOXAPARIN 40MG/0.4ML SYRINGE (J1650 PER 10MG) SC SCH (09:00)
[2021-05-01] MEDS: diazePAM 2 MG TAB PO SCH ×3 (09:00→22:03)
[2021-05-01] MEDS: SIMETHICONE 80MG CHEW TAB PO SCH ×2 (09:00→22:02)
[2021-05-01] MEDS: DOCUSATE SODIUM 100MG CAPSULE PO SCH ×2 (09:00→22:02)
[2021-05-01] MEDS: DANTROLENE 25 MG CAP PO SCH ×3 (09:00→22:02)
[2021-05-01] MEDS: FLUCONAZOLE 400 MG in IV 1 EA IV SCH (10:08)
[2021-05-01 11:47] LABS: INR 1.02; PROTHROMBIN TIME 13.6 SECONDS (12.5-14.3)
[2021-05-01] MEDS ORDERED: LIDOCAINE 1% MDV 20ML VIAL As Ordered ONE ×2 (12:52→14:15)
[2021-05-01 15:12] VITALS: BP 122/73
[2021-05-01] MEDS: LevoFLOXacin IV 750 MG in IV 1 EA IV SCH (15:26)
[2021-05-01] MEDS: oxyCODONE 5MG TAB PO PRN (15:46)
--- NOTE | 2021-05-01 16:36 | REP ---
INDICATION: Perianal abscess. COMPARISON: None. TECHNIQUE: The procedure was performed under the direct supervision of Dr. George. The patient has a history of a 4.2 x 4.5 x 4.5 cm perianal abscess seen on a previous CT scan performed on 04/28/2021. The risks and benefits of the procedure were explained and informed consent was obtained by the healthcare proxy. The perianal abscess was localized using CT guidance. The skin was prepped and draped in a sterile fashion. 1% lidocaine was used as a local anesthetic. Using CT guidance an 8 Wolof skater APDL catheter was inserted using trocar technique. 2 cc of brown/red colored fluid was withdrawn and sent to the lab for analysis. The catheter was affixed to the skin and a sterile dressing was applied. The catheter was connected to a gravity drainage bag. Estimated blood loss: Less than 1 cc The patient tolerated the procedure well and there were no immediate complications. After the appropriate amount to monitor convalescence the patient was discharged from the department. FINDINGS: None IMPRESSION: CT-guided perianal abscess drain. <Electronically signed by Jose Miguel Juarez > 05/01/21 1629 <Electronically signed by Talha George > 05/01/21 1630
--- NOTE | 2021-05-01 17:01 | REP ---
INDICATION: Poor access. COMPARISON: None. TECHNIQUE: The procedure was performed under the direct supervision of Dr. George. The risks and benefits of the procedure were explained and informed consent was obtained by the healthcare proxy. The right basilic vein was localized using ultrasound guidance. The skin was prepped and draped in a sterile fashion. 2% lidocaine was used as a local anesthetic. Using ultrasound guidance the basilic vein was cannulated and a 0.018 guidewire was inserted and advanced to the SVC using fluoroscopic guidance, and last image hold technology. The needle was removed and a 5.5 Occitan dilator and peel-away sheath was inserted over the guide wire. A 5.5 Occitan dual lumen catheter was cut to length of 32 cm. The dilator was removed and the catheter was inserted over the guide wire with the tip ending in the SVC. The peel-away sheath was removed and the catheter was flushed with heparinized saline as per Hospital protocol. The catheter was affixed to the skin and a sterile dressing was applied. The patient tolerated the procedure well and there were no immediate complications. 0.1 of fluoro time was utilized for this procedure. FINDINGS: None IMPRESSION: PICC line insertion right basilic vein with the tip ending in the SVC. <Electronically signed by Jose Miguel Juarez > 05/01/21 1649 <Electronically signed by Talha George > 05/01/21 0199
[2021-05-01] MEDS: SODIUM CHLORIDE 0.9% INJ 10 ML SYR IV PRN (17:09)
[2021-05-01] MEDS: SODIUM CHLORIDE 0.9% INJ 10 ML SYR IV SCH (18:13)
--- NOTE | 2021-05-01 18:54 | IPNPDOC ---
Subjective Date Seen The patient was seen on 05/01/21. Subjective Chief Complaint/HPI Mr. Lazo is a 30 year old male [facility] resident who is here for perianal abscess s/p diverting colostomy. This morning, he appears comfortable. He was taken down to the IR suite for PICC line and abscess drainage with drain. Objective Physical Examination General Exam: Positive: No Acute Distress Eye Exam: Negative: Sclera icteric Chest Exam: Positive: Clear to auscultation; Negative: Wheezing Heart Exam: Positive: Rate Normal, Regular Rhythm Abdomen Exam: Positive: Normal bowel sounds, Soft Extremity Exam: Negative: Edema Assessment /Plan Assessment Mr. Lazo is a 30 year old male [facility] resident who is here for perianal abscess. Yesterday, general surgery, Dr. Pederson, took patient to the OR for sigmoid resection with diverting colonoscopy and examination of the perianal abscess with wound cultures. On 04/16/21, patient was taken to the OR for debridement. Patient's leukocytosis continued to increase despite debridement and patient was taken back to the OR on 04/23/21 for diverting colonoscopy and re-evaluation of perianal area. Still indurated, patient may need IR to drain if leukocytosis does not improve. Repeat imaging on 04/28/21 still demonstrates the abscess. Patient will need IR to drain abscess. Wound cultures x2 grew two types of E.coli which have some resistance to Zosyn. Switched patient to Meropenem, now switched for levofloxacin and metronidazole. One wound culture grew yeast like organisms. General surgery started patient on Fluconazole. Pending Fungal culture. Otherwise, can consider levofloxacin and metronidazole as oral options closer to discharge. Otherwise, continue monitoring renal function. D/C ibuprofen and switched out Zosyn as above. On 05/01/21, patient was taken down to IR suite for abscess drainage and PICC placement. Abscess culture obtained. Plan/VTE VTE Prophylaxis Ordered?: Yes Plan 1. Perianal abscess -Seen on CT pelvis -Unclear if source control has been achieved as second CT pelvis demonstrates phlegmonous collection or early abscess formation. There was induration on re- evaluation by general surgery. There is no significant improvement on CT and it is becoming more loculated. Patient will need IR to drain abscess -Both wound cultures grew two types of E.coli which had some resistance to Zosyn, so I switched to Meropenem. Patient now switched to levofloxacin and metronidazole. -Levofloxacin and metronidazole day 6 2. Cerebral palsy with severe intellectual disability -Patient is a resident of [facility] 3. 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 ESTEFANY -Most likely medication induced -Switched out Zosyn -Discontinued Ibuprofen -Supportive care and monitoring -Improved 5. DVT ppx -Lovenox Disposition: Pending abscess culture results. VS, I&O, 24H, Fishbone Vital Signs/I&O Vital Signs Date Time Temp Pulse Resp B/P (MAP) Pulse Ox O2 Delivery O2 Flow Rate FiO2 05/01/21 17:08 18 Room Air 05/01/21 16:56 99.4 05/01/21 15:12 102 122/73 (89) 98 I&O- Last 24 Hours up to 6 AM 05/01/21 06:00 Intake Total 2390 ml Output Total 2300 ml Balance 90 ml Laboratory Data 24H LABS Laboratory Tests 2 05/01/21 05:39: Nucleated Red Blood Cells % (auto) 0.0, Anion Gap 6L, Glomerular Filtration Rate > 60.0, Calcium Level 8.4L 05/01/21 11:00: Prothrombin Time 13.6, Prothromb Time International Ratio 1.02 CBC/BMP Laboratory Tests 05/01/21 05:39 Microbiology Microbiology 05/01/21 Blood Culture, Received Pending 05/01/21 Gram Stain - Final, Resulted 05/01/21 Abscess Culture, Resulted Pending 04/23/21 Gram Stain - Final, Complete 04/23/21 Wound Culture - Final, Complete Escherichia Coli#2 Escherichia Coli Yeast Like Organism 04/23/21 Fungal Smear, Received Pending 04/23/21 Fungal Culture, Received Pending 04/23/21 Anaerobic Culture - Final, Complete Bacteroides Caccae 04/23/21 Gram Stain - Final, Complete 04/23/21 Wound Culture - Final, Complete Escherichia Coli Escherichia Coli#2 AURORA MAXWELL DO May 01, 2021 18:54
[2021-05-01 22:00] VITALS: BP 114/55
[2021-05-01] MEDS: CitaloPRAM (CeleXA) 20 MG TAB PO SCH (22:02)
[2021-05-02 06:00] VITALS: BP 121/57
[2021-05-02] MEDS: D5W/0.45% SODIUM CHLORIDE 1,000 ML IV SCH ×2 (06:03→18:21)
[2021-05-02] MEDS: metroNIDAZOLE 500 MG in IV 1 EA IV SCH ×3 (06:03→22:05)
[2021-05-02] MEDS: SODIUM CHLORIDE 0.9% INJ 10 ML SYR IV SCH ×2 (06:05→15:52)
[2021-05-02 06:15] LABS: HEMOGLOBIN 11.7 g/dl (13.5-17.5); MEAN CORPUSCULAR HEMOGLOBIN 28.6 pg (27.0-33.0); MEAN CORPUSCULAR HGB CONC 31.6 g/dl (32.0-36.5); MEAN CORPUSCULAR VOLUME 90.5 fl (80.0-96.0); PLATELET COUNT, AUTOMATED 383 10^3/uL (150-450); RED BLOOD COUNT 4.09 10^6/uL (4.30-6.10)
[2021-05-02 06:35] LABS: BLOOD UREA NITROGEN 11 MG/DL (7-18); CALCIUM LEVEL 8.6 MG/DL (8.5-10.1); CARBON DIOXIDE LEVEL 28 MEQ/L (21-32); CHLORIDE LEVEL 107 MEQ/L (98-107); CREATININE FOR GFR 1.08 MG/DL (0.70-1.30); GLOMERULAR FILTRATION RATE > 60.0 (>60); GLUCOSE, FASTING 109 MG/DL (70-100); POTASSIUM SERUM 5.1 MEQ/L (3.5-5.1); SODIUM LEVEL 140 MEQ/L (136-145)
[2021-05-02] MEDS: LACTULOSE 20 GM/30 ML SYRUP UD PO SCH ×3 (08:29→22:05)
[2021-05-02] MEDS: ENOXAPARIN 40MG/0.4ML SYRINGE (J1650 PER 10MG) SC SCH (08:29)
[2021-05-02] MEDS: MIRALAX *UNIT DOSE* 17GM PACKET PO SCH ×2 (08:29→21:00)
[2021-05-02] MEDS: DANTROLENE 25 MG CAP PO SCH ×3 (08:30→21:32)
[2021-05-02] MEDS: CYCLOBENZAPRINE 10MG TABLET PO SCH ×3 (08:30→21:32)
[2021-05-02] MEDS: SIMETHICONE 80MG CHEW TAB PO SCH ×2 (08:30→21:32)
[2021-05-02] MEDS: diazePAM 2 MG TAB PO SCH ×3 (08:35→21:31)
[2021-05-02] MEDS: DOCUSATE SODIUM 100MG CAPSULE PO SCH ×2 (08:35→21:31)
[2021-05-02] MEDS: FLUCONAZOLE 400 MG in IV 1 EA IV SCH (09:32)
[2021-05-02] MEDS: ACETAMINOPHEN TAB 650MG DOSE (2X325MG) PO PRN ×2 (11:59→18:31)
--- NOTE | 2021-05-02 13:18 | IPNPDOC ---
Text Note Date of Service The patient was seen on 05/02/21. NOTE Subjective: Patient is a 30-year-old male who is a [facility] resident who was found for perianal abscess status post diverting colostomy. This morning he appears comfortable. A PICC line and abscess drainage with drain was placed yesterday. Patient is otherwise doing well. Review of systems: Review of systems unable to be obtained due to the patient being nonverbal Physical exam: Vitals: See below General: Patient is alert but not oriented male who was laying in the hospital bed when I walked in the room. Patient did not appear to be in any acute distress. HEENT: Normocephalic, atraumatic, moist mucous membranes. Cardiac: Regular rate and rhythm, no murmurs, normal S1, normal S2 Pulm: Clear to auscultation bilaterally. No wheezes, rhonchi, rales Abd: Nondistended, nontender to palpation, normal bowel sounds, with diverting colostomy with brown stool with healing wounds on the abdomen Ext: No edema bilateral lower extremities Labs: See below Imaging: A CT guided perianal abscess drain performed on 05/01/2021 was placed. PICC line insertion was reported to show PICC line inserted into the right basilic vein with the tip ending in the SVC. Assessment/plan: Patient is a 30-year-old male who is a [facility] resident who presented to the emergency department with perianal abscess, patient was taken to the operating room for sigmoid resection with diverting colonoscopy and examination of the perianal abscess with wound cultures. 2 wound cultures have grown 2 types of E. coli which show some resistance to IV Zosyn. Patient was switched to meropenem. 1. Perianal abscess which was seen on CT. Unclear source control can be achieved a second CT pelvis demonstrates phlegmonous collection or early abscess formation. There is induration on reevaluation by general surgery. No significant improvement on CT. Patient had abscess drain placed yesterday and we are awaiting cultures from the abscess. Patient had 2 types of E. coli with some resistance to Zosyn. Patient is switched to meropenem. Patient is also on levofloxacin. Today is day 7 of antibiotics. We will await culture results and change antibiotics as needed. Continue giving pain medications as ordered if the patient appears uncomfortable. 2. Cerebral palsy with severe intellectual disability. Patient is a resident of [facility]. 3. 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 Patient is a resident [facility] and we will continue with diazepam as needed. 4. Acute kidney injury, improved, most likely medication induced. Ibuprofen has been discontinued. DVT Prophylaxis: Lovenox Disposition: Pending abscess culture results. VS,Fishbone, I+O VS, Fishbone, I+O Laboratory Tests 05/02/21 05:46 Vital Signs Date Time Temp Pulse Resp B/P (MAP) Pulse Ox O2 Delivery O2 Flow Rate FiO2 05/02/21 06:00 97.6 82 19 121/57 (78) 97 Room Air I&O- Last 24 Hours up to 6 AM 05/02/21 05:59 Intake Total 950 ml Output Total 450 ml Balance 500 ml DESTINY BORJA DO May 02, 2021 13:18
[2021-05-02 14:00] VITALS: BP 125/68
[2021-05-02] MEDS: LevoFLOXacin IV 750 MG in IV 1 EA IV SCH (14:13)
[2021-05-02] MEDS: oxyCODONE 5MG TAB PO PRN ×2 (14:14→21:32)
[2021-05-02] MEDS: CitaloPRAM (CeleXA) 20 MG TAB PO SCH (21:31)
[2021-05-02 22:00] VITALS: BP 120/58
[2021-05-02] MEDS: SODIUM CHLORIDE 0.9% INJ 10 ML SYR IV PRN (23:33)
[2021-05-03] MEDS: ACETAMINOPHEN TAB 650MG DOSE (2X325MG) PO PRN ×2 (00:04→16:09)
[2021-05-03] MEDS: D5W/0.45% SODIUM CHLORIDE 1,000 ML IV SCH ×2 (04:19→16:13)
[2021-05-03 06:00] VITALS: BP 132/61
[2021-05-03] MEDS: metroNIDAZOLE 500 MG in IV 1 EA IV SCH ×3 (06:01→22:57)
[2021-05-03] MEDS: SODIUM CHLORIDE 0.9% INJ 10 ML SYR IV SCH ×2 (06:01→15:49)
[2021-05-03 07:08] LABS: HEMATOCRIT 35.2 % (42.0-52.0); HEMOGLOBIN 10.9 g/dl (13.5-17.5); MEAN CORPUSCULAR HEMOGLOBIN 28.2 pg (27.0-33.0); PLATELET COUNT, AUTOMATED 341 10^3/uL (150-450); RED BLOOD COUNT 3.87 10^6/uL (4.30-6.10); WHITE BLOOD COUNT 6.8 10^3/uL (4.0-10.0)
[2021-05-03] MEDS: SODIUM CHLORIDE 0.9% INJ 10 ML SYR IV PRN (07:39)
[2021-05-03 07:40] LABS: BLOOD UREA NITROGEN 5 MG/DL (7-18); CALCIUM LEVEL 8.5 MG/DL (8.5-10.1); CARBON DIOXIDE LEVEL 26 MEQ/L (21-32); CHLORIDE LEVEL 110 MEQ/L (98-107); CREATININE FOR GFR 0.98 MG/DL (0.70-1.30); GLOMERULAR FILTRATION RATE > 60.0 (>60); GLUCOSE, FASTING 109 MG/DL (70-100); POTASSIUM SERUM 4.6 MEQ/L (3.5-5.1); SODIUM LEVEL 145 MEQ/L (136-145)
[2021-05-03] MEDS: MIRALAX *UNIT DOSE* 17GM PACKET PO SCH ×3 (09:24→21:00)
[2021-05-03] MEDS: DANTROLENE 25 MG CAP PO SCH ×3 (09:24→20:44)
[2021-05-03] MEDS: SIMETHICONE 80MG CHEW TAB PO SCH ×2 (09:24→20:44)
[2021-05-03] MEDS: CYCLOBENZAPRINE 10MG TABLET PO SCH ×3 (09:24→20:44)
[2021-05-03] MEDS: DOCUSATE SODIUM 100MG CAPSULE PO SCH ×3 (09:24→21:00)
[2021-05-03] MEDS: LACTULOSE 20 GM/30 ML SYRUP UD PO SCH ×3 (09:24→21:00)
[2021-05-03] MEDS: FLUCONAZOLE 400 MG in IV 1 EA IV SCH (09:26)
[2021-05-03] MEDS: ENOXAPARIN 40MG/0.4ML SYRINGE (J1650 PER 10MG) SC SCH (09:26)
[2021-05-03] MEDS: diazePAM 2 MG TAB PO SCH ×3 (09:37→20:44)
--- NOTE | 2021-05-03 10:38 | IPNPDOC ---
Text Note Date of Service The patient was seen on 05/03/21. NOTE Subjective: Patient is a 30-year-old male who is a long-term resident at the [facility] who was found to have a perianal abscess status post diverting colostomy with drainage of pelvic abscess. Abscess drain was placed 2 days ago. Patient is otherwise doing well according to nursing staff today. Patient is unable to provide any history as he is nonverbal. Review of systems: Unable to obtain due to the patient being nonverbal. Physical exam: Vitals: See below General: Patient is alert but not oriented male who is lying in hospital bed when I walked in the room. Patient was sleeping but did awake easily during examination. Patient did not appear to be in any acute distress. HEENT: Normocephalic, atraumatic, moist mucous membranes. Cardiac: Regular rate and rhythm, no murmurs, normal S1, normal S2 Pulm: Clear to auscultation bilaterally. No wheezes, rhonchi, rales Abd: Nondistended, ostomy was present with a small amount of brown stool in the bag. Patient had well-healing wounds on the abdomen. Patient did not appear to be uncomfortable during palpation of the abdomen. Ext: No edema bilateral lower extremities Labs: See below Imaging: No new imaging has been performed. Assessment/plan: Patient is a 30-year-old male who is a [facility] resident who presented to the emergency department with a perianal abscess. Patient was taken into the operating room for a sigmoid resection with diverting colostomy and examination of the perianal abscess with wound cultures. 2 wound cultures have grown 2 different types of E. coli which do show resistance to IV Zosyn. Patient has been switched to meropenem. 1. Perianal abscess seen on CT. Patient had a percutaneous drain placed in the abscess. I spoke with the patient's general surgeon earlier today who stated that once he is good to go, he can have the drain removed. The patient's colostomy will be permanent. We are awaiting the culture results of the abscess culture and we will see if we need to change the antibiotics. Patient will continue with the current medication. Today is day 8 of antibiotics. 2. Cerebral palsy with severe intellectual disability. Patient is a resident of [facility] and is nonverbal. Patient does communicate with groans according to mom. If the patient is wiggling his fingers, that means he is comfortable and not in any pain according to the patient's mother. 3. 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 We will continue with his current treatment. 4. Acute kidney injury, resolved, most likely medication induced. Ibuprofen has been discontinued. DVT Prophylaxis: Lovenox Disposition: Pending abscess culture results. As long as patient is eating and drinking, we can DC the IV fluids. Hopeful discharge in the next 24 to 48 hours. VS,Fishbone, I+O VS, Fishbone, I+O Laboratory Tests 05/03/21 06:56 Vital Signs Date Time Temp Pulse Resp B/P (MAP) Pulse Ox O2 Delivery O2 Flow Rate FiO2 05/03/21 06:00 97.5 88 17 132/61 (84) 98 Room Air I&O- Last 24 Hours up to 6 AM 05/03/21 06:00 Intake Total 2600 ml Output Total 1710 ml Balance 890 ml DESTINY BORJA DO May 03, 2021 10:38
--- NOTE | 2021-05-03 13:00 | IPNPDOC ---
Text Note Date of Service The patient was seen on 05/03/21. NOTE Patient is a 30-year-old male status post sharp excisional debridement posterior anus and rectum with diverting colostomy. His ostomy is producing lots of air and stool. Percutaneous drain in place draining perirectal abscess. VSSAF NAD resting comfortably in bed abd - soft, nt, nd, ostomy is in place. edema is slightly improved, and there is stool and air in the bag skin - erythema in the perineal area is still present, but it is improved, the drainage and induration have decreased. drain - no fluid in drain or bag Cultures - positive for yeast and e.coli A) 30y/o male with necrotic tissue with abscess in the perianal and perirectal area. s/p sharp excisional debridement of posterior anus and rectum s/p diverting colostomy. P) reg diet ostomy care stool softeners add fluconazole due to yeast Medical management Remove abimael and drain prior to discharge VS,Fishbone, I+O VS, Fishbone, I+O Laboratory Tests 05/03/21 06:56 Vital Signs Date Time Temp Pulse Resp B/P (MAP) Pulse Ox O2 Delivery O2 Flow Rate FiO2 05/03/21 06:00 97.5 88 17 132/61 (84) 98 Room Air I&O- Last 24 Hours up to 6 AM 05/03/21 06:00 Intake Total 2600 ml Output Total 1710 ml Balance 890 ml Ashkan Cosby DO May 03, 2021 12:59
[2021-05-03 14:00] VITALS: BP 119/67
[2021-05-03] MEDS: LevoFLOXacin IV 750 MG in IV 1 EA IV SCH (14:46)
[2021-05-03] MEDS: CitaloPRAM (CeleXA) 20 MG TAB PO SCH (20:43)
[2021-05-03 22:00] VITALS: BP 112/71
[2021-05-04] MEDS: SODIUM CHLORIDE 0.9% INJ 10 ML SYR IV SCH (05:59)
[2021-05-04] MEDS: D5W/0.45% SODIUM CHLORIDE 1,000 ML IV SCH (05:59)
[2021-05-04 06:00] VITALS: BP 117/79
[2021-05-04] MEDS: metroNIDAZOLE 500 MG in IV 1 EA IV SCH (06:00)
[2021-05-04] MEDS ORDERED: FLUCONAZOLE 100 MG TAB PO SCH (09:00)
[2021-05-04] MEDS: MIRALAX *UNIT DOSE* 17GM PACKET PO SCH ×2 (10:21→10:31)
[2021-05-04] MEDS: LACTULOSE 20 GM/30 ML SYRUP UD PO SCH ×2 (10:21→10:30)
[2021-05-04] MEDS: DOCUSATE SODIUM 100MG CAPSULE PO SCH ×2 (10:22→10:30)
[2021-05-04] MEDS: ENOXAPARIN 40MG/0.4ML SYRINGE (J1650 PER 10MG) SC SCH (10:22)
[2021-05-04] MEDS: SIMETHICONE 80MG CHEW TAB PO SCH ×2 (10:22→10:34)
[2021-05-04] MEDS: DANTROLENE 25 MG CAP PO SCH ×2 (10:22→10:34)
[2021-05-04] MEDS: diazePAM 2 MG TAB PO SCH ×2 (10:22→10:34)
[2021-05-04] MEDS: CYCLOBENZAPRINE 10MG TABLET PO SCH ×2 (10:22→10:34)
[2021-05-04] MEDS ORDERED: LEVO750T13 PO (12:23)
[2021-05-04] MEDS ORDERED: FLAG500T PO (12:23)
[2021-05-04] MEDS ORDERED: LevoFLOXacin 750 MG TABLET PO SCH (13:00)
--- NOTE | 2021-05-04 13:39 | DS.PDOC ---
Discharge Summary General Date of Admission Apr 16, 2021 at 14:33 Date of Discharge 05/04/2021 Attending Physician: DESTINY BORJA DO Specialist/Consultants Involve: MOUNIKA CONNORS DO Discharge Summary Primary care provider: Danita Silva PROCEDURES PERFORMED DURING STAY: Rectal exam under anesthesia, sharp excisional debridement of posterior rectal wall and posterior anus, debridement of subcutaneous tissues including rectal wall, perirectal muscle, and subcutaneous fat and skin Robotic assisted sigmoid resection with diverting colostomy followed by rectal exam under anesthesia and wound cultures CT-guided pelvic abscess drainage with drain placement ADMITTING DIAGNOSES: 1. Perianal infection. 2. Cerebral palsy DISCHARGE DIAGNOSES: 1. Perianal infection. 2. Pelvic abscess, drained 3. Cerebral palsy COMPLICATIONS/CHIEF COMPLAINT: Perianal Infection. HISTORY OF PRESENT ILLNESS: Patient is a 30-year-old male with cerebral palsy and intellectual disability who was brought to the hospital on 04/16/2021 with a 2-week history of perianal pain. Staff noticed the skin was increasingly becoming more red and painful and is unable to sit up in his chair anymore. Unclear why he was not brought in earlier. Per [facility] worker at bedside, it has been getting worse over the past week. Staff reports he had a fever. [facility] staff tells me his mother regularly shaves his perianal area. Unfortunately no history was able to be from the patient due to his intellectual disability. HOSPITAL COURSE: Patient was initially admitted on IV fluids and antibiotics. Patient required debridement in the operating room which was performed on 04/17/2021. Patient continued to have symptoms and the area of infection did not resolve. Because of this, on 04/23 patient was brought to the operating room for a diverting colostomy which would most likely be permanent. Because source control was unable to be fully controlled, patient had to have a extended stay in the hospital. Patient had an acute kidney injury during his hosp italization which was thought to be secondary to ibuprofen use. Ibuprofen had been discontinued and his kidneys recovered back to normal. On 05/01/2021 it was shown that the patient had a drainable collection in the pelvis and was brought to interventional radiology where a CT-guided abscess drainage with drain placement was performed. Patient was initially on IV Zosyn however, the patient's wound culture from the anal area initially grew out 2 different types of E. coli one of which had some resistance to Zosyn. Patient was switched to meropenem and continue to get better. Once the patient had the drain placed, abscess culture was performed and showed Proteus, E. coli, and Enterococcus avium. The sensitivities of these organisms were similar to the sensitivities from prior organisms that grew from the wound cultures and the patient was able to go home on levofloxacin and metronidazole as an anaerobic culture was positive. Patient had been on these antibiotics for 4 days since the abscess was drained and will continue for an additional 5. Patient had been on antibiotics since his admission in the hospital. Patient was deemed ready for discharge on 05/04/2021. DISCHARGE MEDICATIONS: Please see below. ALLERGIES: Please see below. PHYSICAL EXAMINATION ON DISCHARGE: VITAL SIGNS: Please see below. General: Alert but not oriented male patient who was laying in bed when I walked into the room. Patient did awake easily and did not appear to be in any acute distress. HEENT: Normocephalic, atraumatic, moist mucous membranes. Neck: No lymphadenopathy or thyromegaly Cardiac: Regular rate and rhythm, no murmurs, normal S1, normal S2 Pulm: Clear to auscultation bilaterally. No wheezes, rhonchi, rales Abd: Ostomy with brown stool was present on the left side of the abdomen. Abscess drain was still in place and draining a very small amount of purulent material. Abdomen was soft, patient did not appear to be in any discomfort during palpation. Ext: No edema bilateral lower extremities LABORATORY DATA: Please see below. IMAGING: A CT of the pelvis with IV contrast performed on 04/16/2021 was reported to show diffuse inflammatory thickening of the rectum extending into the distal sigmoid. Presacral phlegmonous change with no definite drainable walled off abscess. There is a small fistula of the anus just above the anal verge at the 5 o'clock position, with a thin tract extending into the left gluteal soft tissues with associated soft tissue inflammation. No abscess is seen at that location. A CT of the pelvis without IV contrast performed on 04/22/2021 was reported to show phlegmonous change/early abscess formation in the perirectal region as described above. Mucosal thickening pericolonic inflammatory stranding extends from the distal sigmoid to the rectum at the level of the rectum there is a complex somewhat poorly defined phlegmonous collection of gas and fluid with components involving the presacral/ischio rectal space similar to recent prior examination but presumed to be increased in size. No discernible drainable collection is identified. Renal ultrasound performed on 04/25/2021 was reported to show unremarkable renal ultrasonography possible additional findings in the pelvis. CT of the pelvis with contrast performed on 3020 was reported to show perirectal abscess containing gas and fluid with irregular enhancing rim is inseparable from rectum and the ischio rectal/presacral space with irregular contour abscess measures roughly 4.2 x 4.5 x [address]-guided percutaneous drainage of abscess was performed with an estimated blood loss less than 1 cc. PROGNOSIS: Good ACTIVITY: As tolerated. DIET: Regular DISCHARGE PLAN: Discharge back to [facility] DISPOSITION: Discharged to [facility] DISCHARGE INSTRUCTIONS: 1. Follow-up with your primary care provider within 5 to 7 days of discharge. 2. There is no need to follow-up with general surgery as the drain has been removed unless further issues arise 3. Continue taking antibiotics for 5 additional days DISCHARGE CONDITION: Stable. TIME SPENT ON DISCHARGE: Greater than 30 minutes. Vital Signs/I&Os Vital Signs Date Time Temp Pulse Resp B/P (MAP) Pulse Ox O2 Delivery O2 Flow Rate FiO2 05/04/21 06:00 97.6 93 17 117/79 (92) 98 Room Air I&O- Last 24 Hours up to 6 AM 05/04/21 05:59 Intake Total 2870 ml Output Total 2990 ml Balance -120 ml Microbiology Microbiology 05/01/21 Blood Culture - Preliminary, Resulted No Growth after 48 hours. All Specime... 05/01/21 Blood Culture - Preliminary, Resulted No Growth after 48 hours. All Specime... 05/01/21 Gram Stain - Final, Complete 05/01/21 Abscess Culture - Final, Complete Proteus Mirabilis Escherichia Coli Enterococcus Avium Discharge Medications Scheduled Alendronate Sodium (Alendronate Sodium) 70 Mg Tablet, 70 MG PO QWEEK, (Reported) WEDNESDAYS Cholecalciferol (Vitamin D3) (Vitamin D3) 50 Mcg Capsule, 50 MCG PO QHS, (Reported) Citalopram Hydrobromide (Citalopram HBr) 20 Mg Tab, 20 MG PO QHS, (Reported) Cyclobenzaprine HCl (Cyclobenzaprine HCl) 10 Mg Tablet, 10 MG PO TID, (Reported) Dantrolene Sodium (Dantrolene Sodium) 25 Mg Capsule, 50 MG PO TID, (Reported) Diazepam (Diazepam) 2 Mg Tab, 4 MG PO TID, (Reported) Docusate Sodium (Dok) 100 Mg Capsule, 100 MG PO BID, (Reported) Lactobacillus Acidophilus (Acidophilus) 1 Each Tablet, 1 TAB PO QHS, (Reported) Lactulose (Lactulose) 10 Gm/15 Ml Solution, 15 ML PO BID, (Reported) Levofloxacin (Levofloxacin) 750 Mg Tablet, 750 MG PO DAILY@06 Metronidazole (Flagyl) 500 Mg Tablet, 500 MG PO Q8H [place]-3 Fatty Acids/Fish Oil (Fish Oil 1,000 mg Capsule) 1 Each Capsule, 2,000 MG PO DAILY, (Reported) GIVEN WITH LUNCH Polyethylene Glycol 3350 (Miralax) 119 Gm Powder, 17 GRAM PO BID, (Reported) Simethicone (Simethicone) 80 Mg Tab.chew, 80 MG PO BID, (Reported) Scheduled PRN Acetaminophen (Acetaminophen) 325 Mg Tablet, 650 MG PO Q4H PRN for PAIN LEVEL 1- 4, (Reported) Cetirizine HCl (Cetirizine HCl) 10 Mg Tablet, 10 MG PO DAILY PRN for ALLERGIES, (Reported) Glycerin (Glycerin Laxative) 5.4 Gm/5.4 Ml Janell.pf.kory, 5.4 GM ME DAILY PRN for CONSTIPATION, (Reported) ADMINISTER ON DAY 3 OF NO BOWEL MOVEMENT Sodium Phosphate,Nuckolls-Dibasic (Fleet Enema) 133 Ml Enema, 1 STEVE ME DAILY PRN for CONSTIPATION, (Reported) ADMINISTER ON DAY 4 OF NO BOWEL MOVEMENT Allergies Coded Allergies: cefaclor (Verified Allergy, Intermediate, HIVES, 11/02/20) red dye (Verified Adverse Reaction, Mild, GI UPSET, 11/02/20) DESTINY BORJA DO May 04, 2021 13:39
[2021-05-04] MEDS ORDERED: metroNIDAZOLE (FLAGYL) 500MG TABLET PO SCH (14:00)
--- NOTE | 2021-05-04 16:00 | ECGEPIP ---
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
== END 2021-05-04 16:56 | disposition home or self-care (01) | DRG 221 ==
LOC: M ED 10:29 → M ED INP 14:33 → ENRESERV 16:30 → M MSPAV 16:50
PROVIDERS: ADMIT Family Medicine; ATTEND Family Medicine
PROC: 0KBM0ZZ Excision of Perineum Muscle, Open Approach (ICD-10-PCS; principal; 2021-04-16)
PROC: 0D1N4Z4 Bypass Sigmoid Colon to Cutaneous, Percutaneous Endoscopic Approach (ICD-10-PCS; 2021-04-23)
PROC: 0DBN4ZZ Excision of Sigmoid Colon, Percutaneous Endoscopic Approach (ICD-10-PCS; 2021-04-23)
PROC: 8E0W4CZ Robotic Assisted Procedure of Trunk Region, Percutaneous Endoscopic Approach (ICD-10-PCS; 2021-04-23)
PROC: 0D9Q30Z Drainage of Anus with Drainage Device, Percutaneous Approach (ICD-10-PCS; 2021-05-01)
PROC: 02HV33Z Insertion of Infusion Device into Superior Vena Cava, Percutaneous Approach (ICD-10-PCS; 2021-05-01)
DX: K61.0 Anal abscess (principal); N17.9 Acute kidney failure, unspecified; F72 Severe intellectual disabilities; G80.0 Spastic quadriplegic cerebral palsy; R13.10 Dysphagia, unspecified; G40.909 Epilepsy, unspecified, not intractable, without status epilepticus; J45.909 Unspecified asthma, uncomplicated; K60.0 Acute anal fissure; K60.4 Rectal fistula; Z79.899 Other long term (current) drug therapy; Z88.8 Allergy status to other drugs, medicaments and biological substances; B96.29 Other Escherichia coli [E. coli] as the cause of diseases classified elsewhere

== ENCOUNTER 2021-05-06 10:38 | Inpatient (IN) | payer MEDICAID ==
[~2021-05-06 10:38] MED LIST changes: +ACET-910 PO; +ALEN70TA82 PO; +CETI10TA PO; +CYCL-707 PO; +D32000CA PO; +DANT25CA2 PO; +DOK1CAP7 PO; +FISH1000 PO; +FLAG500T PO; +FLEEENE12 PR; +FLEEENE3 PR; +IBUP200T45 PO; +LACT20EL PO; +LEVO750T13 PO; +MIRA3350 PO; +PROB1TAB2 PO; +SIME80CH5 PO; +vitamin d3
[2021-05-06] MEDS ORDERED: NS 1,000 ML IV ONE (10:55)
[2021-05-06 11:47] LABS: BASO # 0.2 10^3/uL (0.0-0.2); BASO % 2.3 % (0.0-1.0); EOS # 0.4 10^3/uL (0.0-0.5); EOS % 4.2 % (0.0-3.0); HEMATOCRIT 41.7 % (42.0-52.0); HEMOGLOBIN 13.6 g/dl (13.5-17.5); LYMPH # 1.7 10^3/uL (1.5-5.0); LYMPH % 16.9 % (24.0-44.0); MEAN CORPUSCULAR HEMOGLOBIN 28.7 pg (27.0-33.0); MEAN CORPUSCULAR HGB CONC 32.6 g/dl (32.0-36.5); MONO # 0.8 10^3/uL (0.0-0.8); MONO % 7.8 % (2.0-8.0); NEUTROPHILS # 6.4 10^3/uL (1.5-8.5); NEUTROPHILS % 65.6 % (36.0-66.0); PLATELET COUNT, AUTOMATED 479 10^3/uL (150-450); RED BLOOD COUNT 4.74 10^6/uL (4.30-6.10); WHITE BLOOD COUNT 9.8 10^3/uL (4.0-10.0)
[2021-05-06 12:16] LABS: ALBUMIN 3.3 GM/DL (3.2-5.2); ALT/SGPT 82 U/L (12-78); BILIRUBIN,TOTAL 0.2 MG/DL (0.2-1.0); BLOOD UREA NITROGEN 9 MG/DL (7-18); CALCIUM LEVEL 8.9 MG/DL (8.5-10.1); CARBON DIOXIDE LEVEL 31 MEQ/L (21-32); CHLORIDE LEVEL 104 MEQ/L (98-107); CREATININE FOR GFR 0.85 MG/DL (0.70-1.30); GLOMERULAR FILTRATION RATE > 60.0 (>60); GLUCOSE, FASTING 101 MG/DL (70-100); POTASSIUM SERUM 4.1 MEQ/L (3.5-5.1); SODIUM LEVEL 142 MEQ/L (136-145); TOTAL PROTEIN 6.8 GM/DL (6.4-8.2)
--- NOTE | 2021-05-06 12:48 | REP ---
INDICATION: abd COMPARISON: 01/30/2021 TECHNIQUE: Axial noncontrast images from the lung bases to the pubic symphysis with coronal and sagittal reformations. This CT examination was performed using the following dose reduction techniques: Automated exposure control, adjustment of mA and/or kv according to the patient's size, and use of iterative reconstruction technique. FINDINGS: Lung bases are clear. Visualized heart and pericardium normal. Liver, spleen, pancreas, gallbladder, bilateral adrenal glands and kidneys are normal. Patient is status post ostomy via the left anterior abdominal wall. Fecal stasis through the colon raise the possibility of constipation. The small bowel is unremarkable. Oversewn rectosigmoid colon is relatively normal in appearance. Pelvis demonstrates distended bladder which is likely transient in nature and should be correlated with physical examination. Normal prostate gland/seminal vesicles noted. Evidence for prior right inguinal hernia repair. No ascites. No free air. No adenopathy. No focal inflammatory stranding. Abdominal aorta without aneurysm. 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 IMPRESSION: No acute abdominopelvic pathology appreciated. Chronic and postsurgical changes as described above. No ascites, focal inflammatory stranding, adenopathy, or free air. <Electronically signed by Guy Sykes > 05/06/21 [id number]
--- NOTE | 2021-05-06 15:07 | REP ---
INDICATION: altered COMPARISON: None. TECHNIQUE: Axial noncontrast images from the skull base to the thoracic inlet with coronal reformations. This CT examination was performed using the following dose reduction techniques: Automated exposure control, adjustment of mA and/or kv according to the patient's size, and use of iterative reconstruction technique. FINDINGS: The ventricles are symmetric and appear mildly dilated suggesting underlying atrophy. George-white differentiation is maintained. There is no evidence for acute intracranial hemorrhage, mass/mass effect, pathology or infarction. No extra-axial fluid collection. Calvarium is intact. Paranasal small nonspecific fluid level in the right maxillary sinus.. IMPRESSION: Atrophy. No acute intracranial hemorrhage, infarction, or mass/mass effect. <Electronically signed by Guy Sykes > 05/06/21 [id number]
--- NOTE | 2021-05-06 15:52 | REP ---
INDICATION: altered COMPARISON: 04/12/2021 TECHNIQUE: Portable AP view of the chest FINDINGS: The mediastinum and cardiac silhouette are stable and within normal limits for portable technique. The lung crockett are clear without acute consolidation, effusion, or pneumothorax. Skeletal structures are intact. IMPRESSION: No acute cardiopulmonary process appreciated. <Electronically signed by Guy Sykes > 05/06/21 [id number]
[2021-05-06] MEDS ORDERED: METR-265 PO (17:31)
[2021-05-06] MEDS ORDERED: ONDA-83 PO (17:31)
[2021-05-06] MEDS ORDERED: LEVO750T14 PO (17:31)
[2021-05-06] MEDS ORDERED: MOM 30ML SUSPENSION UDC PO PRN (18:20)
[2021-05-06] MEDS ORDERED: MAALOX 30 ML SUSP *UDC PO PRN (18:20)
[2021-05-06 18:30] LABS: VENOUS BASE EXCESS 1.6 (-2.0-2.0); VENOUS O2 SATURATION 77.7 % (60.0-80.0); VENOUS PARTIAL PRESSURE CO2 45.5 mmHg (38.0-50.0); VENOUS PARTIAL PRESSURE O2 41.4 mmHg (30.0-50.0); VENOUS PH 7.391 UNITS (7.330-7.430); VENOUS STANDARD HCO3 25.4 MEQ/L; VENOUS TOTAL CO2 28.4 MEQ/L (24.0-28.0)
--- NOTE | 2021-05-06 18:35 | HPEPDOC ---
[facility] Medical History & Physical Date of Admission May 06, 2021 Date of Service: May 06, 2021 History and Physical CHIEF COMPLAINT: Vomiting HISTORY OF PRESENT ILLNESS: Patient is a 30-year-old male with a history of cerebral palsy and severe intellectual disability, nonverbal, nonambulatory. He was admitted at [facility] between 621 and 05/04/21 for treatment of a perianal infection, pelvic abscess. Patient required a diverting colostomy on 04/15/21, suspected to be permanent. Patient further developed acute kidney injury, cordero spected to be secondary to ibuprofen use. On 05/01/21, patient was identified to have a pelvic abscess that was drained with CT guided imaging. Patient completed antibiotic therapy initially with IV Zosyn followed by meropenem. Cultures identify showed a Proteus, Escherichia coli and enterococcus avium. Patient was discharged on by mouth Levaquin and metronidazole. Per [facility] staff reported the patient has not been tolerating by mouth due to vomiting. He has not taken his medications including his antibiotics for the past [address] abdomen pelvis did not show acute intra-abdominal or pelvic process. PAST MEDICAL HISTORY: RC patient mental retardation Cerebral palsy Seizure disorder Asthma PAST SURGICAL HISTORY: Diverting colostomy Robotic-assisted sigmoid resection Debridement of subcutaneous tissues of posterior rectal wall, posterior anus area. Rectal muscle and subcutaneous fat and skin Pelvic abscess drainage with CT-guided imaging SOCIAL HISTORY: Nonverbal but able to give per chart review, Sohail Rodarte severe CP nonverbal, non- mobile FAMILY HISTORY: Unable to obtain ALLERGIES: Please see below. REVIEW OF SYSTEMS: Unable to provide 10 point ROS HOME MEDICATIONS: Please see below. PHYSICAL EXAMINATION: VITAL SIGNS: please see below General: NAD, comfortable HEENT: PERRLA, EOMI, sclerae clear Neck: supple, normal ROM, no JVD Respiratory: lungs CTAB, no wheeze, no rales, no crackles CVS: RRR, normal S1, S2, no murmurs Perineal exam revealed slight mucopurulent discharge at the site of prior abscess drainage. No discrete firm abscess identified by manual palpation. Abdo: soft, no masses, no hepatosplenomegaly, BS+, no rebound tenderness Extremities: no edema, pulses 2+ MSK: no joint deformities, normal ROM Neuro: Patient is opening eyes spontaneously, does not have pupillary asymmetry, or external quadriplegia. LABORATORY DATA: See below. IMAGING: Chest x-ray on 05/06/21 No acute cardiopulmonary process appreciated. CT head without contrast on 05/06/21 IMPRESSION: Atrophy. No acute intracranial hemorrhage, infarction, or mass/mass effect. CT abdomen pelvis without contrast on 05/06/21 IMPRESSION: No acute abdominopelvic pathology appreciated. Chronic and postsurgical changes as described above. No ascites, focal inflammatory stranding, adenopathy, or free air. MICROBIOLOGY: Please see below. ASSESSMENT: Patient is a 30-year-old male with a history of cerebral palsy and severe intellectual disability, nonverbal, nonambulatory. He was admitted at [facility] between 621 and 05/04/21 for treatment of a perianal infection, pelvic abscess. Patient required a diverting colostomy on 04/15/21, suspected to be permanent. Patient further developed acute kidney injury, suspected to be secondary to ibuprofen use. On 05/01/21, patient was identified to have a pelvic abscess that was drained with CT guided imaging. Patient completed antibiotic therapy initially with IV Zosyn followed by meropenem. Cultures identify showed a Proteus, Escherichia coli and enterococcus avium. Patient was discharged on by mouth Levaquin and metronidazole. Per [facility] staff reported the patient has not been tolerating by mouth due to vomiting. He has not taken his medications including his antibiotics for the past 2 days. On the time of arrival, patient's has not yet normalities and his vital signs her blood work. CT abdomen pelvis did not show acute intra-abdominal or pelvic process.. . PLAN: Persistent vomiting, likely secondary to postop ileus -Patient is status post robotic-assisted sigmoid resection with diverting colostomy on 04/23/21 - Patient was discharged from [facility] and 05/04/21 - Per report, patient is unable to tolerate by mouth due to persistent vomiting. - Physical exam is benign. No lab work abnormalities noted and no acute intra- abdominal processes seen on CT. - Discussed the findings with Dr. Mondragon, who recommended not placing an NG tube at this time. Suspect postop ileus. - Monitor patient placed on IV fluids unable to obtain IV access for rehydration. Currently kidney did not show signs of dehydration. - We will continue antibiotics, Levaquin and metronidazole that were prescribed on discharge and extend initial treatment by 2 days Zofran when necessary for vomiting Cerebral palsy - Resume regular medications for spasms. CODE STATUS: FULL CODE. Dispo: Pending clinical improvement. Vital Signs Vital Signs Date Time Temp Pulse Resp B/P (MAP) Pulse Ox O2 Delivery O2 Flow Rate FiO2 05/06/21 17:45 89 150/104 (119) 05/06/21 17:31 16 97 Room Air 05/06/21 12:30 99.2 Laboratory Data Labs 24H Laboratory Tests 2 05/06/21 10:58: Immature Granulocyte % (Auto) 3.2H, Neutrophils (%) (Auto) 65.6, Lymphocytes (%) (Auto) 16.9L, Monocytes (%) (Auto) 7.8, Eosinophils (%) (Auto) 4.2H, Basophils (%) (Auto) 2.3H, Neutrophils # (Auto) 6.4, Lymphocytes # (Auto) 1.7, Monocytes # (Auto) 0.8, Eosinophils # (Auto) 0.4, Basophils # (Auto) 0.2, Nucleated Red Blood Cells % (auto) 0.0, Anion Gap 7L, Glomerular Filtration Rate > 60.0, Calcium Level 8.9, Total Bilirubin 0.2, Aspartate Amino Transf (AST/SGOT) 111H, Alanine Aminotransferase (ALT/SGPT) 82H, Alkaline Phosphatase 266H, Total Protein 6.8, Albumin 3.3, Albumin/Globulin Ratio 0.9 05/06/21 14:05: Bedside Glucose (Misc Panel) 98 05/06/21 15:31: Urine Color YELLOW, Urine Appearance CLEAR, Urine pH 7.0, Urine Specific [place] 1.011, Urine Protein NEGATIVE, Urine Glucose (UA) NEGATIVE, Urine Ketones NEGATIVE, Urine Blood 1+H, Urine Nitrite NEGATIVE, Urine Bilirubin NEGATIVE, Urine Urobilinogen 0.2, Urine Leukocyte Esterase TRACEH, Urine WBC (Auto) 15H, Urine RBC (Auto) 23H, Urine Hyaline Casts (Auto) 2, Urine Bacteria (Auto) NEGATIVE, Urine Squamous Epithelial Cells 0, Urine Mucus (Auto) SMALL, Urine Sperm (Auto) 05/06/21 18:25: CBC/BMP Laboratory Tests 05/06/21 10:58 Microbiology Microbiology 05/06/21 Urine Culture, Received Pending Home Medications Scheduled Alendronate Sodium (Alendronate Sodium) 70 Mg Tablet, 70 MG PO QWEEK WEDNESDAYS Cholecalciferol (Vitamin D3) (Vitamin D3) 50 Mcg Capsule, 50 MCG PO QHS Citalopram Hydrobromide (Citalopram HBr) 20 Mg Tab, 20 MG PO QHS Cyclobenzaprine HCl (Cyclobenzaprine HCl) 10 Mg Tablet, 10 MG PO TID Dantrolene Sodium (Dantrolene Sodium) 25 Mg Capsule, 50 MG PO TID Diazepam (Diazepam) 2 Mg Tab, 4 MG PO TID Docusate Sodium (Dok) 100 Mg Capsule, 100 MG PO BID Lactobacillus Acidophilus (Acidophilus) 1 Each Tablet, 1 TAB PO QHS Lactulose (Lactulose) 10 Gm/15 Ml Solution, 15 ML PO BID Metronidazole (Metronidazole) 500 Mg Tablet, 500 MG PO Q8H [place]-3 Fatty Acids/Fish Oil (Fish Oil 1,000 mg Capsule) 1 Each Capsule, 2,000 MG PO DAILY GIVEN WITH LUNCH Polyethylene Glycol 3350 (Miralax) 119 Gm Powder, 17 GRAM PO BID Simethicone (Simethicone) 80 Mg Tab.chew, 80 MG PO BID levoFLOXacin (levoFLOXacin) 750 Mg Tablet, 750 MG PO DAILY Scheduled PRN Acetaminophen (Acetaminophen) 325 Mg Tablet, 650 MG PO Q4H PRN for PAIN LEVEL 1- 4 Cetirizine HCl (Cetirizine HCl) 10 Mg Tablet, 10 MG PO DAILY PRN for ALLERGIES Glycerin (Glycerin Laxative) 5.4 Gm/5.4 Ml Janell.pf.kory, 5.4 GM SD DAILY PRN for CONSTIPATION ADMINISTER ON DAY 3 OF NO BOWEL MOVEMENT Ondansetron HCl (Ondansetron HCl) 4 Mg Tablet, 4 MG PO Q6H PRN for NAUSEA OR VOMITING Allergies Coded Allergies: cefaclor (Verified Allergy, Intermediate, HIVES, 11/02/20) red dye (Verified Adverse Reaction, Mild, GI UPSET, 11/02/20) A-FIB/CHADSVASC A-FIB History Current/History of A-Fib/PAF?: No AMANDA BREAUX MD May 06, 2021 18:35
[2021-05-06] MEDS ORDERED: ONDANSETRON 4 MG ORAL DISINTEGRATING TAB PO PRN (19:00)
[2021-05-06] MEDS ORDERED: FLEET ENEMA PR PRN (19:00)
[2021-05-06] MEDS ORDERED: CETIRIZINE (ZyrTEC) 10 MG TAB PO PRN (19:00)
[2021-05-06 20:03] LABS: RSV AMPLIFICATION NEGATIVE (NEGATIVE)
[2021-05-06] MEDS: DANTROLENE 25 MG CAP PO SCH (21:00)
[2021-05-06] MEDS: SIMETHICONE 80MG CHEW TAB PO SCH (22:07)
[2021-05-06] MEDS: metroNIDAZOLE (FLAGYL) 500MG TABLET PO SCH (22:07)
[2021-05-06] MEDS: diazePAM 2 MG TAB PO SCH (22:07)
[2021-05-06] MEDS: CYCLOBENZAPRINE 10MG TABLET PO SCH (22:07)
[2021-05-06] MEDS: CitaloPRAM (CeleXA) 20 MG TAB PO SCH (22:07)
[2021-05-06] MEDS: DOCUSATE SODIUM 100MG CAPSULE PO SCH (22:07)
[2021-05-07 08:02] VITALS: BP 124/59
[2021-05-07] MEDS: metroNIDAZOLE (FLAGYL) 500MG TABLET PO SCH ×3 (08:07→23:28)
[2021-05-07] MEDS: DOCUSATE SODIUM 100MG CAPSULE PO SCH ×2 (08:07→23:28)
[2021-05-07] MEDS: diazePAM 2 MG TAB PO SCH ×3 (08:07→23:28)
[2021-05-07] MEDS: DANTROLENE 25 MG CAP PO SCH ×2 (08:07→22:41)
[2021-05-07] MEDS: CYCLOBENZAPRINE 10MG TABLET PO SCH ×3 (08:07→23:28)
[2021-05-07] MEDS: LevoFLOXacin 750 MG TABLET PO SCH (08:07)
[2021-05-07] MEDS: ENOXAPARIN 40MG/0.4ML SYRINGE (J1650 PER 10MG) SC SCH (08:08)
[2021-05-07] MEDS: SIMETHICONE 80MG CHEW TAB PO SCH ×2 (08:12→23:28)
[2021-05-07 08:31] LABS: BASO # 0.2 10^3/uL (0.0-0.2); BASO % 2.4 % (0.0-1.0); EOS # 0.4 10^3/uL (0.0-0.5); EOS % 4.5 % (0.0-3.0); HEMATOCRIT 35.9 % (42.0-52.0); LYMPH # 1.9 10^3/uL (1.5-5.0); LYMPH % 20.1 % (24.0-44.0); MEAN CORPUSCULAR HEMOGLOBIN 29.1 pg (27.0-33.0); MEAN CORPUSCULAR HGB CONC 33.4 g/dl (32.0-36.5); MEAN CORPUSCULAR VOLUME 87.1 fl (80.0-96.0); MONO # 0.8 10^3/uL (0.0-0.8); MONO % 8.2 % (2.0-8.0); NEUTROPHILS # 5.9 10^3/uL (1.5-8.5); NEUTROPHILS % 62.3 % (36.0-66.0); PLATELET COUNT, AUTOMATED 412 10^3/uL (150-450); RED BLOOD COUNT 4.12 10^6/uL (4.30-6.10); WHITE BLOOD COUNT 9.5 10^3/uL (4.0-10.0)
[2021-05-07 09:15] LABS: ALBUMIN 2.9 GM/DL (3.2-5.2); ALT/SGPT 71 U/L (12-78); BILIRUBIN,TOTAL 0.3 MG/DL (0.2-1.0); BLOOD UREA NITROGEN 7 MG/DL (7-18); CALCIUM LEVEL 8.4 MG/DL (8.5-10.1); CARBON DIOXIDE LEVEL 27 MEQ/L (21-32); CHLORIDE LEVEL 107 MEQ/L (98-107); CREATININE FOR GFR 0.68 MG/DL (0.70-1.30); GLOMERULAR FILTRATION RATE > 60.0 (>60); GLUCOSE, FASTING 93 MG/DL (70-100); MAGNESIUM LEVEL 1.7 MG/DL (1.8-2.4); POTASSIUM SERUM 3.1 MEQ/L (3.5-5.1); SODIUM LEVEL 143 MEQ/L (136-145); TOTAL PROTEIN 5.8 GM/DL (6.4-8.2)
--- NOTE | 2021-05-07 09:48 | IPNPDOC ---
Date Seen The patient was seen on 05/07/21. Progress Note SUBJECTIVE: Patient seen and examined at bedside. Mom was at bedside. Patient did not have an uneventful night. He is currently sleeping peacefully. Reports resolution of vomiting. He only had a few tablespoons of applesauce with his medications. OBJECTIVE PHYSICAL EXAMINATION: VITAL SIGNS: please see below General: NAD, comfortable HEENT: PERRLA, EOMI, sclerae clear Neck: supple, normal ROM, no JVD Respiratory: lungs CTAB, no wheeze, no rales, no crackles CVS: RRR, normal S1, S2, no murmurs Perineal exam revealed slight mucopurulent discharge at the site of prior abscess drainage. No discrete firm abscess identified by manual palpation. Abdo: soft, no masses, no hepatosplenomegaly, BS+, no rebound tenderness Extremities: no edema, pulses 2+ MSK: no joint deformities, normal ROM Neuro: Patient is opening eyes spontaneously, does not have pupillary asymmetry, or external quadriplegia. LABORATORY DATA, IMAGING STUDIES, MICROBIOLOGY: Please see below. DVT prophylaxis ordered?: Y, lovenox ASSESSMENT AND PLAN: Patient is a 30-year-old male with a history of cerebral palsy and severe intellectual disability, nonverbal, nonambulatory. He was admitted at [facility] between 621 and 05/04/21 for treatment of a perianal infection, pelvic abscess. Patient required a diverting colostomy on 04/15/21, suspected to be permanent. Patient further developed acute kidney injury, suspected to be secondary to ibuprofen use. On 05/01/21, patient was identified to have a pelvic abscess that was drained with CT guided imaging. Patient completed antibiotic therapy initially with IV Zosyn followed by meropenem. Cultures identify showed a Proteus, Escherichia coli and enterococcus avium. Patient was discharged on by mouth Levaquin and metronidazole. Per [facility] staff reported the patient has not been tolerating by mouth due to vomiting. He has not taken his medications including his antibiotics for the past 2 days. On the time of arrival, patient's has not yet normalities and his vital signs her blood work. CT abdomen pelvis did not show acute intra-abdominal or pelvic process.. PROBLEMS: Persistent vomiting, likely secondary to postop ileus -Patient is status post robotic-assisted sigmoid resection with diverting colostomy on 04/23/21 - Patient was discharged from [facility] and 05/04/21 - Per report, patient is unable to tolerate by mouth due to persistent vomiting. - Physical exam is benign. No lab work abnormalities noted and no acute intra- abdominal processes seen on CT. - Discussed the findings with Dr. Mondragon, who recommended not placing an NG tube at this time. Suspect postop ileus. - Monitor patient placed on IV fluids unable to obtain IV access for rehydration. Currently kidney did not show signs of dehydration. 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 - sign of pain is wiggling of finger per mother. Dispo: pending clinical improvement. VS, I&O, 24H, Fishbone Vital Signs/I&O Vital Signs Date Time Temp Pulse Resp B/P (MAP) Pulse Ox O2 Delivery O2 Flow Rate FiO2 05/07/21 08:02 98.1 82 14 124/59 (80) 92 Room Air I&O- Last 24 Hours up to 6 AM 05/07/21 06:00 Intake Total 360 ml Output Total 1200 ml Balance -840 ml Laboratory Data 24H LABS Laboratory Tests 2 05/06/21 10:58: Immature Granulocyte % (Auto) 3.2H, Neutrophils (%) (Auto) 65.6, Lymphocytes (%) (Auto) 16.9L, Monocytes (%) (Auto) 7.8, Eosinophils (%) (Auto) 4.2H, Basophils (%) (Auto) 2.3H, Neutrophils # (Auto) 6.4, Lymphocytes # (Auto) 1.7, Monocytes # (Auto) 0.8, Eosinophils # (Auto) 0.4, Basophils # (Auto) 0.2, Nucleated Red Blood Cells % (auto) 0.0, Anion Gap 7L, Glomerular Filtration Rate > 60.0, Calcium Level 8.9, Total Bilirubin 0.2, Aspartate Amino Transf (AST/SGOT) 111H, Alanine Aminotransferase (ALT/SGPT) 82H, Alkaline Phosphatase 266H, Total Protein 6.8, Albumin 3.3, Albumin/Globulin Ratio 0.9 05/06/21 14:05: Bedside Glucose (Misc Panel) 98 05/06/21 15:31: Urine Color YELLOW, Urine Appearance CLEAR, Urine pH 7.0, Urine Specific [place] 1.011, Urine Protein NEGATIVE, Urine Glucose (UA) NEGATIVE, Urine Ketones NEGATIVE, Urine Blood 1+H, Urine Nitrite NEGATIVE, Urine Bilirubin NEGATIVE, Urine Urobilinogen 0.2, Urine Leukocyte Esterase TRACEH, Urine WBC (Auto) 15H, Urine RBC (Auto) 23H, Urine Hyaline Casts (Auto) 2, Urine Bacteria (Auto) NEGATIVE, Urine Squamous Epithelial Cells 0, Urine Mucus (Auto) SMALL, Urine Sperm (Auto) 05/06/21 18:25: Blood Gas Bicarbonate Standard 25.4, Venous Blood pH 7.391, Venous Blood Partial Pressure CO2 45.5, Venous Blood Partial Pressure O2 41.4, Venous Blood Total Carbon Dioxide 28.4H, Venous Blood HCO3 27.0, Venous Blood Oxygen Saturation 77.7, Venous Blood Base Excess 1.6, Ammonia 15 05/06/21 19:14: Coronavirus (COVID-19)(PCR) NEGATIVE, Influenza Type A (RT-PCR) NEGATIVE, Influenza Type B (RT-PCR) NEGATIVE, Respiratory Syncytial Virus (PCR) NEGATIVE 05/07/21 08:22: Immature Granulocyte % (Auto) 2.5, Neutrophils (%) (Auto) 62.3, Lymphocytes (%) (Auto) 20.1L, Monocytes (%) (Auto) 8.2H, Eosinophils (%) (Auto) 4.5H, Basophils (%) (Auto) 2.4H, Neutrophils # (Auto) 5.9, Lymphocytes # (Auto) 1.9, Monocytes # (Auto) 0.8, Eosinophils # (Auto) 0.4, Basophils # (Auto) 0.2, Nucleated Red Blood Cells % (auto) 0.0, Anion Gap 9, Glomerular Filtration Rate > 60.0, Calcium Level 8.4L, Magnesium Level 1.7L, Total Bilirubin 0.3, Aspartate Amino Transf (AST/SGOT) 71H, Alanine Aminotransferase (ALT/SGPT) 71, Alkaline Phosphatase 225H, Total Protein 5.8L, Albumin 2.9L, Albumin/Globulin Ratio 1.0 CBC/BMP Laboratory Tests 05/06/21 10:58 05/07/21 08:22 Microbiology Microbiology 05/06/21 Urine Culture, Received Pending AMANDA BREAUX MD May 07, 2021 09:48
[2021-05-07] MEDS: MAG SULF 1GM/100ML (MAG RUN) 1 GM in IV 1 EA IV SCH ×2 (10:00→11:00)
[2021-05-07] MEDS ORDERED: POTASSIUM CHLORIDE 10 MEQ SR TABLET PO ONE (10:00)
[2021-05-07] MEDS: MAGNESIUM OXIDE 400MG TAB (MAG-OX) PO SCH ×2 (11:29→23:28)
[2021-05-07] MEDS: ACETAMINOPHEN TAB 650MG DOSE (2X325MG) PO PRN (11:35)
[2021-05-07 12:00] VITALS: BP 140/91
[2021-05-07 16:00] VITALS: BP 135/88
[2021-05-07 16:46] VITALS: BP 122/68
[2021-05-07] MEDS ORDERED: LIDOCAINE 1% MDV 20ML VIAL As Ordered ONE (17:26)
[2021-05-07 22:00] VITALS: BP 123/59
[2021-05-07] MEDS: NS 1,000 ML IV SCH (23:27)
[2021-05-07] MEDS: CitaloPRAM (CeleXA) 20 MG TAB PO SCH (23:27)
[2021-05-07] MEDS: SODIUM CHLORIDE 0.9% INJ 10 ML SYR IV PRN (23:28)
[2021-05-08 02:00] VITALS: BP 118/65
[2021-05-08] MEDS: DANTROLENE 25 MG CAP PO SCH ×4 (02:42→21:51)
[2021-05-08 06:00] VITALS: BP 107/54
[2021-05-08] MEDS: metroNIDAZOLE (FLAGYL) 500MG TABLET PO SCH ×4 (06:43→21:52)
[2021-05-08] MEDS: SODIUM CHLORIDE 0.9% INJ 10 ML SYR IV SCH ×2 (06:43→18:00)
[2021-05-08 07:06] LABS: BASO # 0.2 10^3/uL (0.0-0.2); BASO % 1.2 % (0.0-1.0); EOS # 0.2 10^3/uL (0.0-0.5); HEMATOCRIT 35.1 % (42.0-52.0); HEMOGLOBIN 11.5 g/dl (13.5-17.5); LYMPH # 1.6 10^3/uL (1.5-5.0); LYMPH % 8.4 % (24.0-44.0); MEAN CORPUSCULAR HEMOGLOBIN 28.8 pg (27.0-33.0); MEAN CORPUSCULAR HGB CONC 32.8 g/dl (32.0-36.5); MONO # 1.3 10^3/uL (0.0-0.8); MONO % 6.7 % (2.0-8.0); NEUTROPHILS % 81.5 % (36.0-66.0); PLATELET COUNT, AUTOMATED 393 10^3/uL (150-450); RED BLOOD COUNT 3.99 10^6/uL (4.30-6.10); WHITE BLOOD COUNT 19.6 10^3/uL (4.0-10.0)
[2021-05-08 07:40] LABS: ALBUMIN 2.9 GM/DL (3.2-5.2); ALT/SGPT 50 U/L (12-78); BILIRUBIN,TOTAL 0.4 MG/DL (0.2-1.0); BLOOD UREA NITROGEN 6 MG/DL (7-18); CALCIUM LEVEL 8.2 MG/DL (8.5-10.1); CARBON DIOXIDE LEVEL 27 MEQ/L (21-32); CHLORIDE LEVEL 108 MEQ/L (98-107); CREATININE FOR GFR 0.67 MG/DL (0.70-1.30); GLOMERULAR FILTRATION RATE > 60.0 (>60); GLUCOSE, FASTING 91 MG/DL (70-100); MAGNESIUM LEVEL 1.7 MG/DL (1.8-2.4); POTASSIUM SERUM 3.5 MEQ/L (3.5-5.1); SODIUM LEVEL 142 MEQ/L (136-145); TOTAL PROTEIN 5.6 GM/DL (6.4-8.2)
--- NOTE | 2021-05-08 07:54 | REP ---
INDICATION: LAB DRAWS, MEDS. COMPARISON: None. TECHNIQUE: The procedure was performed under the direct supervision of Dr. Latham. The risks and benefits of the procedure were explained and informed consent was obtained by the healthcare proxy. The right brachial vein was localized using ultrasound guidance. The skin was prepped and draped in a sterile fashion. 1 mL of 1% lidocaine was used as a local anesthetic. Using ultrasound guidance the brachial vein was cannulated and a 0.018 guidewire was inserted and advanced to the SVC using fluoroscopic guidance, and last image hold technology. The needle was removed and a 5 Liberian dilator and peel-away sheath was inserted over the guide wire. A 5 [place]ian dual lumen catheter was cut to length of 30 cm. The dilator was removed and the catheter was inserted over the guide wire with the tip ending in the SVC. The peel-away sheath was removed and the catheter was flushed with heparinized saline as per Hospital protocol. The catheter was affixed to the skin and a sterile dressing was applied. Estimated blood loss: Less than 1 mL The patient tolerated the procedure well and there were no immediate complications. 0.1 minutes of fluoro time was utilized for this procedure. FINDINGS: None IMPRESSION: PICC line insertion right brachial vein with the tip ending in the SVC. <Electronically signed by Jose Miguel Juarez > 05/07/21 [id number] <Electronically signed by Wayne Latham > 05/08/21 [id number]
[2021-05-08] MEDS ORDERED: MAG SULF 1GM/100ML (MAG RUN) 1 GM in IV 1 EA IV ONE (10:00)
[2021-05-08] MEDS: DOCUSATE SODIUM 100MG CAPSULE PO SCH ×2 (10:39→21:51)
[2021-05-08] MEDS: diazePAM 2 MG TAB PO SCH ×3 (10:39→21:52)
[2021-05-08] MEDS: ENOXAPARIN 40MG/0.4ML SYRINGE (J1650 PER 10MG) SC SCH (10:39)
[2021-05-08] MEDS: MAGNESIUM OXIDE 400MG TAB (MAG-OX) PO SCH ×2 (10:39→21:52)
[2021-05-08] MEDS: SIMETHICONE 80MG CHEW TAB PO SCH ×2 (10:39→21:52)
[2021-05-08] MEDS: LevoFLOXacin 750 MG TABLET PO SCH (10:39)
[2021-05-08] MEDS: CYCLOBENZAPRINE 10MG TABLET PO SCH ×3 (10:39→21:51)
[2021-05-08] MEDS: NS 1,000 ML IV SCH ×2 (10:40→15:44)
[2021-05-08 14:00] VITALS: BP 108/60
--- NOTE | 2021-05-08 17:59 | IPNPDOC ---
Subjective Date Seen The patient was seen on 05/08/21. Subjective Chief Complaint/HPI Patient has cerebral palsy, profound mental retardation, nonverbal nonambulatory. Had acute urinary retention again this morning so Woo was p laced. Objective Physical Examination General Exam: Positive: Other (Nonverbal nonambulatory) ENT Exam: Positive: Atraumatic, Mucous membr. moist/pink, Pharynx Normal Neck Exam: Positive: Supple; Negative: JVD, thyromegaly Chest Exam: Positive: Clear to auscultation, Normal air movement Heart Exam: Positive: Rate Normal, Regular Rhythm, Normal S1, Normal S2; Negative: Murmurs, Rubs Abdomen Exam: Positive: Normal bowel sounds, Soft, Other (Colostomy present) Extremity Exam: Negative: Clubbing, Cyanosis, Edema Assessment /Plan Assessment Patient is a 30-year-old male with a history of cerebral palsy and severe intellectual disability, nonverbal, nonambulatory. 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 Patient required a sigmoid resection and diverting colostomy on 04/23/21, suspected to be permanent. Patient further developed acute kidney injury, suspected to be secondary to ibuprofen use. On 05/01/21, patient was identified to have a pelvic abscess that was drained with CT guided imaging. Patient completed antibiotic therapy initially with IV Zosyn followed by meropenem. Cultures showed Proteus, Escherichia coli and enterococcus avium. Patient was discharged on by mouth Levaquin and metronidazole. Per mom, [facility] staff reported the patient has not been tolerating by mouth due to vomiting. He has not taken his medications including his antibiotics for the past [address] abdomen pelvis did not show acute intra- abdominal or pelvic process.. Persistent vomiting, likely secondary to postop ileus Patient is status post robotic-assisted sigmoid resection with diverting colostomy on 04/23/21 Patient was discharged from [facility] and 05/04/21 No acute intra-abdominal processes seen on CT. We will continue antibiotics, Levaquin and metronidazole that were prescribed on discharge and extend initial treatment by 2 days (EOT05/12/21) Zofran when necessary for vomiting Leukocytosis No fever, vomiting has resolved, soft stool in the colostomy, good bowel sounds Patient had acute urinary retention with bladder scan showing about 449 cc Urine culture is contaminated Will send procalcitonin Etiology of the leukocytosis is undetermined at this point. Could be due to acute urinary retention and discomfort from it. 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 sign of pain is wiggling of finger per mother. Plan/VTE VTE Prophylaxis Ordered?: Yes VS, I&O, 24H, Fishbone Vital Signs/I&O Vital Signs Date Time Temp Pulse Resp B/P (MAP) Pulse Ox O2 Delivery O2 Flow Rate FiO2 05/08/21 14:00 98.0 89 18 108/60 (76) 98 Room Air I&O- Last 24 Hours up to 6 AM 05/08/21 06:00 Intake Total 1690 ml Output Total 1145 ml Balance 545 ml Laboratory Data 24H LABS Laboratory Tests 2 05/08/21 06:53: Immature Granulocyte % (Auto) 1.2, Neutrophils (%) (Auto) 81.5H, Lymphocytes (%) (Auto) 8.4L, Monocytes (%) (Auto) 6.7, Eosinophils (%) (Auto) 1.0, Basophils (%) (Auto) 1.2H, Neutrophils # (Auto) 16.0H, Lymphocytes # (Auto) 1.6, Monocytes # (Auto) 1.3H, Eosinophils # (Auto) 0.2, Basophils # (Auto) 0.2, Nucleated Red Blo od Cells % (auto) 0.0, Anion Gap 7L, Glomerular Filtration Rate > 60.0, Calcium Level 8.2L, Magnesium Level 1.7L, Total Bilirubin 0.4, Aspartate Amino Transf (AST/SGOT) 38H, Alanine Aminotransferase (ALT/SGPT) 50, Alkaline Phosphatase 188H, Total Protein 5.6L, Albumin 2.9L, Albumin/Globulin Ratio 1.1 CBC/BMP Laboratory Tests 05/08/21 06:53 Microbiology Microbiology 05/06/21 Urine Culture - Final, Complete STEPHANIE FERRO MD May 08, 2021 17:59
[2021-05-08] MEDS: CitaloPRAM (CeleXA) 20 MG TAB PO SCH (21:51)
[2021-05-08 22:00] VITALS: BP 104/55
[2021-05-09] MEDS: NS 1,000 ML IV SCH (00:35)
[2021-05-09] MEDS: ACETAMINOPHEN TAB 650MG DOSE (2X325MG) PO PRN ×3 (00:59→22:26)
[2021-05-09 02:00] VITALS: BP 109/66
[2021-05-09] MEDS: metroNIDAZOLE (FLAGYL) 500MG TABLET PO SCH ×3 (05:02→22:25)
[2021-05-09] MEDS: SODIUM CHLORIDE 0.9% INJ 10 ML SYR IV SCH ×2 (05:03→18:30)
[2021-05-09 06:00] VITALS: BP 114/56
[2021-05-09 07:04] LABS: ALBUMIN 2.6 GM/DL (3.2-5.2); ALT/SGPT 38 U/L (12-78); BILIRUBIN,TOTAL 0.3 MG/DL (0.2-1.0); BLOOD UREA NITROGEN 4 MG/DL (7-18); CALCIUM LEVEL 8.1 MG/DL (8.5-10.1); CARBON DIOXIDE LEVEL 24 MEQ/L (21-32); CHLORIDE LEVEL 112 MEQ/L (98-107); CREATININE FOR GFR 0.58 MG/DL (0.70-1.30); GLOMERULAR FILTRATION RATE > 60.0 (>60); GLUCOSE, FASTING 89 MG/DL (70-100); MAGNESIUM LEVEL 1.9 MG/DL (1.8-2.4); POTASSIUM SERUM 3.9 MEQ/L (3.5-5.1); SODIUM LEVEL 143 MEQ/L (136-145); TOTAL PROTEIN 5.4 GM/DL (6.4-8.2)
[2021-05-09] MEDS: SIMETHICONE 80MG CHEW TAB PO SCH ×2 (08:28→22:26)
[2021-05-09] MEDS: CYCLOBENZAPRINE 10MG TABLET PO SCH ×3 (08:29→22:25)
[2021-05-09] MEDS: MAGNESIUM OXIDE 400MG TAB (MAG-OX) PO SCH ×2 (08:29→22:25)
[2021-05-09] MEDS: LevoFLOXacin 750 MG TABLET PO SCH (08:29)
[2021-05-09] MEDS: DANTROLENE 25 MG CAP PO SCH ×3 (08:29→22:25)
[2021-05-09] MEDS: DOCUSATE SODIUM 100MG CAPSULE PO SCH ×2 (08:29→22:25)
[2021-05-09] MEDS: SODIUM CHLORIDE 0.9% INJ 10 ML SYR IV PRN (08:30)
[2021-05-09] MEDS: ENOXAPARIN 40MG/0.4ML SYRINGE (J1650 PER 10MG) SC SCH (08:30)
[2021-05-09] MEDS: diazePAM 2 MG TAB PO SCH ×3 (08:32→22:25)
[2021-05-09 09:15] LABS: BASO # 0.2 10^3/uL (0.0-0.2); BASO % 1.9 % (0.0-1.0); EOS # 0.4 10^3/uL (0.0-0.5); HEMATOCRIT 31.8 % (42.0-52.0); HEMOGLOBIN 10.2 g/dl (13.5-17.5); LYMPH # 1.4 10^3/uL (1.5-5.0); LYMPH % 13.9 % (24.0-44.0); MEAN CORPUSCULAR HEMOGLOBIN 28.7 pg (27.0-33.0); MEAN CORPUSCULAR HGB CONC 32.1 g/dl (32.0-36.5); MEAN CORPUSCULAR VOLUME 89.3 fl (80.0-96.0); MONO # 0.8 10^3/uL (0.0-0.8); MONO % 8.2 % (2.0-8.0); NEUTROPHILS # 7.2 10^3/uL (1.5-8.5); NEUTROPHILS % 70.3 % (36.0-66.0); PLATELET COUNT, AUTOMATED 415 10^3/uL (150-450); RED BLOOD COUNT 3.56 10^6/uL (4.30-6.10); WHITE BLOOD COUNT 10.2 10^3/uL (4.0-10.0)
[2021-05-09 14:00] VITALS: BP_SYST 117; BP_SYST 135; BP_DIAS 64; BP_DIAS 65
--- NOTE | 2021-05-09 17:32 | IPNPDOC ---
Subjective Date Seen The patient was seen on 05/09/21. Subjective Chief Complaint/HPI Seen this morning awake moving upper extremities being fed breakfast by hospital staff. In the afternoon sleeping. As per nurses patient is awake all night so most likely that is why he is sleeping during the day. Objective Physical Examination General Exam: Positive: Other (Nonverbal nonambulatory) ENT Exam: Positive: Atraumatic, Mucous membr. moist/pink, Pharynx Normal Neck Exam: Positive: Supple; Negative: JVD, thyromegaly Chest Exam: Positive: Clear to auscultation, Normal air movement Heart Exam: Positive: Rate Normal, Regular Rhythm, Normal S1, Normal S2; Negative: Murmurs, Rubs Abdomen Exam: Positive: Normal bowel sounds, Soft, Other (Colostomy present) Extremity Exam: Negative: Clubbing, Cyanosis, Edema Assessment /Plan Assessment Patient is a 30-year-old male with a history of cerebral palsy and severe i ntellectual disability, nonverbal, nonambulatory. He was admitted at 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 Patient required a sigmoid resection and diverting colostomy on 04/23/21, suspected to be permanent. Patient further developed acute kidney injury, suspected to be secondary to ibuprofen use. On 05/01/21, patient was identified to have a pelvic abscess that was drained with CT guided imaging. Patient completed antibiotic therapy initially with IV Zosyn followed by meropenem. Cultures showed Proteus, Escherichia coli and enterococcus avium. Patient was discharged on by mouth Levaquin and metronidazole. Per [facility] [place], [facility] staff reported the patient has not been tolerating by mouth due to vomiting. He has not taken his medications including his antibiotics for the past [address] abdomen pelvis did not show acute intra- abdominal or pelvic process.. Persistent vomiting, likely secondary to postop ileus Seems to have resolved, tolerating oral diet Patient is status post robotic-assisted sigmoid resection with diverting colostomy on 04/23/21 Patient was discharged from [facility] and 05/04/21 No acute intra-abdominal processes seen on CT. We will continue antibiotics, Levaquin and metronidazole that were prescribed on discharge and extend initial treatment by 2 days (EOT05/12/21) Zofran when necessary for vomiting Dressing change of the perineal wound Leukocytosis Likely due to acute urinary retention Procalcitonin normal WBC has normalized today Acute urinary retention Needed to be straight cathed last night Repeat bladder scan in the morning again showed 449 cc Woo placed. 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 Hold Valium cyclobenzaprine and citalopram if patient very sleepy. sign of pain is wiggling of finger per mother. Plan/VTE VTE Prophylaxis Ordered?: Yes VS, I&O, 24H, Fishbone Vital Signs/I&O Vital Signs Date Time Temp Pulse Resp B/P (MAP) Pulse Ox O2 Delivery O2 Flow Rate FiO2 05/09/21 14:00 97.6 95 18 117/64 (81) 98 Room Air I&O- Last 24 Hours up to 6 AM 05/09/21 06:00 Intake Total 1400 ml Output Total 1150 ml Balance 250 ml Laboratory Data 24H LABS Laboratory Tests 2 05/08/21 18:34: Procalcitonin 0.08 05/09/21 06:06: Anion Gap 7L, Glomerular Filtration Rate > 60.0, Calcium Level 8.1L, Magnesium Level 1.9, Total Bilirubin 0.3, Aspartate Amino Transf (AST/SGOT) 23, Alanine Aminotransferase (ALT/SGPT) 38, Alkaline Phosphatase 166H, Total Protein 5.4L, Albumin 2.6L, Albumin/Globulin Ratio 0.9 05/09/21 08:39: Immature Granulocyte % (Auto) 1.7, Neutrophils (%) (Auto) 70.3H, Lymphocytes (%) (Auto) 13.9L, Monocytes (%) (Auto) 8.2H, Eosinophils (%) (Auto) 4.0H, Basophils (%) (Auto) 1.9H, Neutrophils # (Auto) 7.2, Lymphocytes # (Auto) 1.4L, Monocytes # (Auto) 0.8, Eosinophils # (Auto) 0.4, Basophils # (Auto) 0.2, Nucleated Red Blood Cells % (auto) 0.0 CBC/BMP Laboratory Tests 05/09/21 06:06 05/09/21 08:39 Microbiology Microbiology 05/06/21 Urine Culture - Final, Complete STEPHANIE FERRO MD May 09, 2021 17:31
[2021-05-09 22:00] VITALS: BP 125/79
[2021-05-09] MEDS: CitaloPRAM (CeleXA) 20 MG TAB PO SCH (22:25)
[2021-05-10 06:00] VITALS: BP 128/62
[2021-05-10] MEDS: metroNIDAZOLE (FLAGYL) 500MG TABLET PO SCH ×2 (06:30→14:33)
[2021-05-10] MEDS: SODIUM CHLORIDE 0.9% INJ 10 ML SYR IV SCH (06:31)
[2021-05-10] MEDS: SODIUM CHLORIDE 0.9% INJ 10 ML SYR IV PRN (06:31)
[2021-05-10] MEDS: ACETAMINOPHEN TAB 650MG DOSE (2X325MG) PO PRN (06:32)
[2021-05-10 06:53] LABS: BASO # 0.2 10^3/uL (0.0-0.2); BASO % 2.3 % (0.0-1.0); EOS # 0.4 10^3/uL (0.0-0.5); EOS % 4.7 % (0.0-3.0); HEMATOCRIT 35.5 % (42.0-52.0); HEMOGLOBIN 11.4 g/dl (13.5-17.5); LYMPH # 1.7 10^3/uL (1.5-5.0); LYMPH % 17.9 % (24.0-44.0); MEAN CORPUSCULAR HEMOGLOBIN 28.7 pg (27.0-33.0); MEAN CORPUSCULAR HGB CONC 32.1 g/dl (32.0-36.5); MEAN CORPUSCULAR VOLUME 89.4 fl (80.0-96.0); MONO # 0.8 10^3/uL (0.0-0.8); MONO % 8.4 % (2.0-8.0); NEUTROPHILS % 64.7 % (36.0-66.0); PLATELET COUNT, AUTOMATED 407 10^3/uL (150-450); RED BLOOD COUNT 3.97 10^6/uL (4.30-6.10); WHITE BLOOD COUNT 9.3 10^3/uL (4.0-10.0)
[2021-05-10 07:19] LABS: ALBUMIN 2.9 GM/DL (3.2-5.2); ALT/SGPT 33 U/L (12-78); BILIRUBIN,TOTAL 0.3 MG/DL (0.2-1.0); BLOOD UREA NITROGEN 5 MG/DL (7-18); CALCIUM LEVEL 8.6 MG/DL (8.5-10.1); CARBON DIOXIDE LEVEL 27 MEQ/L (21-32); CHLORIDE LEVEL 109 MEQ/L (98-107); CREATININE FOR GFR 0.59 MG/DL (0.70-1.30); GLOMERULAR FILTRATION RATE > 60.0 (>60); GLUCOSE, FASTING 85 MG/DL (70-100); MAGNESIUM LEVEL 1.9 MG/DL (1.8-2.4); POTASSIUM SERUM 3.7 MEQ/L (3.5-5.1); SODIUM LEVEL 143 MEQ/L (136-145); TOTAL PROTEIN 5.7 GM/DL (6.4-8.2)
[2021-05-10] MEDS: diazePAM 2 MG TAB PO SCH ×2 (09:00→16:23)
[2021-05-10] MEDS: LevoFLOXacin 750 MG TABLET PO SCH (10:07)
[2021-05-10] MEDS: ENOXAPARIN 40MG/0.4ML SYRINGE (J1650 PER 10MG) SC SCH (10:07)
[2021-05-10] MEDS: CYCLOBENZAPRINE 10MG TABLET PO SCH ×2 (10:07→16:23)
[2021-05-10] MEDS: DANTROLENE 25 MG CAP PO SCH ×2 (10:07→16:23)
[2021-05-10] MEDS: DOCUSATE SODIUM 100MG CAPSULE PO SCH (10:07)
[2021-05-10] MEDS: MAGNESIUM OXIDE 400MG TAB (MAG-OX) PO SCH (10:08)
[2021-05-10] MEDS: SIMETHICONE 80MG CHEW TAB PO SCH (10:08)
--- NOTE | 2021-05-10 12:56 | DS.PDOC ---
Discharge Summary General Date of Admission May 06, 2021 at 18:20 Date of Discharge May 10, 2021 Discharge Summary PROCEDURES PERFORMED DURING STAY: [None]. DISCHARGE DIAGNOSES: Postoperative ileus Acute urinary retention now with Woo Healing perineal wound Recent perineal abscess with rectocutaneous fistula status post incision and debridement status post sigmoid resection and diverting colostomy in March 2021 Cerebral palsy with profound mental retardation Nonverbal nonambulatory at baseline COMPLICATIONS/CHIEF COMPLAINT: Ileus,Vomiting. HOSPITAL COURSE: Patient is a 30-year-old male with a history of cerebral palsy and severe intellectual disability, nonverbal, nonambulatory. 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 Patient required a sigmoid resection and diverting colostomy on 04/23/21, suspected to be permanent. Patient further developed acute kidney injury, suspected to be secondary to ibuprofen use. On 05/01/21, patient was identified to have a pelvic abscess that was drained with CT guided imaging. Patient completed antibiotic therapy initially with IV Zosyn followed by meropenem. Cultures showed Proteus, Escherichia coli and enterococcus avium. Patient was discharged on by mouth Levaquin and metronidazole. Per [facility] [place], [facility] staff reported the patient has not been tolerating by mouth due to vomiting. He has not taken his medications including his antibiotics for the past [address] abdomen pelvis did not show acute intra-abdominal or pelvic process.. Persistent vomiting, likely secondary to postop ileus Seems to have resolved, tolerating oral diet Patient is status post robotic-assisted sigmoid resection with diverting colostomy on 04/23/21 Patient was discharged from [facility] and 05/04/21 No acute intra-abdominal processes seen on CT. We will continue antibiotics, Levaquin and metronidazole that were prescribed on discharge and extend initial treatment by 2 days (EOT05/12/21) Zofran when necessary for vomiting Dressing change of the perineal wound Leukocytosis Likely due to acute urinary retention Procalcitonin normal WBC has normalized now Acute urinary retention Needed to be straight cathed x 2 then Woo placed. 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 Continue Valium cyclobenzaprine and citalopram if patient very sleepy. DISCHARGE MEDICATIONS: Please see below. ALLERGIES: Please see below. PHYSICAL EXAMINATION ON DISCHARGE: VITAL SIGNS: Please see below. General Exam: Positive: Other (Nonverbal nonambulatory) ENT Exam: Positive: Atraumatic, Mucous membr. moist/pink, Pharynx Normal Neck Exam: Positive: Supple; Negative: JVD, thyromegaly Chest Exam: Positive: Clear to auscultation, Normal air movement Heart Exam: Positive: Rate Normal, Regular Rhythm, Normal S1, Normal S2; Negative: Murmurs, Rubs Abdomen Exam: Positive: Normal bowel sounds, Soft, Other (Colostomy present) Extremity Exam: Negative: Clubbing, Cyanosis, Edema SKIN: 1 to 2 cm opening in the perineum with some clear discharge. LABORATORY DATA: Please see below. ACTIVITY: [As tolerated]. DIET: As tolerated DISCHARGE PLAN: [facility] DISCHARGE INSTRUCTIONS: Follow up with PMD in 1 week Referral to urology for Woo care Continue daily dressing of the perineal wound as per previous instructions DISCHARGE CONDITION: [Stable]. TIME SPENT ON DISCHARGE: 35 minutes. Vital Signs/I&Os Vital Signs Date Time Temp Pulse Resp B/P (MAP) Pulse Ox O2 Delivery O2 Flow Rate FiO2 05/10/21 06:00 97.3 67 17 128/62 (84) 95 Room Air I&O- Last 24 Hours up to 6 AM 05/10/21 06:00 Intake Total 1110 ml Output Total 1625 ml Balance -515 ml Laboratory Data Labs 24H Laboratory Tests 2 05/10/21 06:38: Immature Granulocyte % (Auto) 2.0, Neutrophils (%) (Auto) 64.7, Lymphocytes (%) (Auto) 17.9L, Monocytes (%) (Auto) 8.4H, Eosinophils (%) (Auto) 4.7H, Basophils (%) (Auto) 2.3H, Neutrophils # (Auto) 6.0, Lymphocytes # (Auto) 1.7, Monocytes # (Auto) 0.8, Eosinophils # (Auto) 0.4, Basophils # (Auto) 0.2, Nucleated Red Blood Cells % (auto) 0.0, Anion Gap 7L, Glomerular Filtration Rate > 60.0, Calcium Level 8.6, Magnesium Level 1.9, Total Bilirubin 0.3, Aspartate Amino Transf (AST/SGOT) 16, Alanine Aminotransferase (ALT/SGPT) 33, Alkaline Phosphatase 165H, Total Protein 5.7L, Albumin 2.9L, Albumin/Globulin Ratio 1.0 CBC/BMP Laboratory Tests 05/10/21 06:38 Microbiology Microbiology 05/06/21 Urine Culture - Final, Complete Discharge Medications Scheduled Alendronate Sodium (Alendronate Sodium) 70 Mg Tablet, 70 MG PO QWEEK, (Reported) WEDNESDAYS Cholecalciferol (Vitamin D3) (Vitamin D3) 50 Mcg Capsule, 50 MCG PO QHS, (Repor kin) Citalopram Hydrobromide (Citalopram HBr) 20 Mg Tab, 20 MG PO QHS, (Reported) Cyclobenzaprine HCl (Cyclobenzaprine HCl) 10 Mg Tablet, 10 MG PO TID, (Reported) Dantrolene Sodium (Dantrolene Sodium) 25 Mg Capsule, 50 MG PO TID, (Reported) Diazepam (Diazepam) 2 Mg Tab, 4 MG PO TID, (Reported) Docusate Sodium (Dok) 100 Mg Capsule, 100 MG PO BID, (Reported) Lactobacillus Acidophilus (Acidophilus) 1 Each Tablet, 1 TAB PO QHS, (Reported) Lactulose (Lactulose) 10 Gm/15 Ml Solution, 15 ML PO BID, (Reported) Metronidazole (Metronidazole) 500 Mg Tablet, 500 MG PO Q8H, (Reported) [place]-3 Fatty Acids/Fish Oil (Fish Oil 1,000 mg Capsule) 1 Each Capsule, 2,000 MG PO DAILY, (Reported) GIVEN WITH LUNCH Polyethylene Glycol 3350 (Miralax) 119 Gm Powder, 17 GRAM PO BID, (Reported) Simethicone (Simethicone) 80 Mg Tab.chew, 80 MG PO BID, (Reported) levoFLOXacin (levoFLOXacin) 750 Mg Tablet, 750 MG PO DAILY, (Reported) Scheduled PRN Acetaminophen (Acetaminophen) 325 Mg Tablet, 650 MG PO Q4H PRN for PAIN LEVEL 1- 4, (Reported) Cetirizine HCl (Cetirizine HCl) 10 Mg Tablet, 10 MG PO DAILY PRN for ALLERGIES, (Reported) Glycerin (Glycerin Laxative) 5.4 Gm/5.4 Ml Janell.pf.kory, 5.4 GM MS DAILY PRN for CONSTIPATION, (Reported) ADMINISTER ON DAY 3 OF NO BOWEL MOVEMENT Ondansetron HCl (Ondansetron HCl) 4 Mg Tablet, 4 MG PO Q6H PRN for NAUSEA OR VOMITING, (Reported) Allergies Coded Allergies: cefaclor (Verified Allergy, Intermediate, HIVES, 11/02/20) red dye (Verified Adverse Reaction, Mild, GI UPSET, 11/02/20) STEPHANIE FERRO MD May 10, 2021 12:56
[2021-05-10 14:00] VITALS: BP 115/63
[2021-05-10] MEDS ORDERED: NEOSPORIN OINT 0.9 GM PKT TOP ONE (15:25)
== END 2021-05-10 17:25 | disposition home or self-care (01) | DRG 252 ==
LOC: M ED 10:38 → EDBD 10:38 → M ED INP 18:20 → ENRESERV 05-07 14:56 → M MSPAV 05-07 16:46
PROVIDERS: ADMIT Family Medicine; ATTEND Internal Medicine Nephrology
PROC: 02HV33Z Insertion of Infusion Device into Superior Vena Cava, Percutaneous Approach (ICD-10-PCS; principal; 2021-05-07 15:00)
DX: K91.30 Postprocedural intestinal obstruction, unspecified as to partial versus complete (principal); F72 Severe intellectual disabilities; G80.0 Spastic quadriplegic cerebral palsy; Z79.899 Other long term (current) drug therapy; Z88.8 Allergy status to other drugs, medicaments and biological substances; Z20.822 Contact with and (suspected) exposure to COVID-19; R33.9 Retention of urine, unspecified; D72.829 Elevated white blood cell count, unspecified; K60.0 Acute anal fissure; K60.4 Rectal fistula

== ENCOUNTER → 2021-06-06 | Outpatient (REF) | payer MEDICAID ==
[~2021-06-06] MED LIST changes: +DOK1CAP4 PO; -DOK1CAP7 PO; +LEVO750T14 PO; +METR-265 PO; +ONDA-83 PO
[2021-06-06 20:09] LABS: APPEARANCE, URINE CLOUDY (CLEAR); BACTERIA, URINE AUTO 1+ (NEGATIVE); BILIRUBIN, URINE AUTO NEGATIVE (NEGATIVE); BLOOD, URINE BLOOD 3+ (NEGATIVE); COLOR, URINE YELLOW (YELLOW); GLUCOSE, URINE (UA) AUTO NEGATIVE (NEGATIVE); KETONE, URINE AUTO TRACE mg/dL (NEGATIVE); LEUKOCYTE ESTERASE, URINE AUTO 3+ (NEGATIVE); NITRITE, URINE AUTO NEGATIVE (NEGATIVE); PROTEIN, URINE AUTO 2+ mg/dL (NEGATIVE); RBC, URINE AUTO TNTC /HPF (0-3); SPECIFIC GRAVITY URINE AUTO 1.015 (1.002-1.035); SQUAMOUS EPITHELIAL CELL UR AU 0 /HPF (0-6); UROBILINOGEN, URINE AUTO 0.2 mg/dL (0.0-2.0); WBC, URINE AUTO TNTC /HPF (0-3)
== END ==
LOC: M LAB REF 18:50
PROVIDERS: ATTEND Physician Assistant
DX: R30.0 Dysuria (principal); Z97.8 Presence of other specified devices

== ENCOUNTER → 2021-07-27 | Outpatient (CLI) | payer MEDICAID ==
[2021-07-27 11:03] LABS: HEMATOCRIT 50.8 % (42.0-52.0); HEMOGLOBIN 16.5 g/dl (13.5-17.5); MEAN CORPUSCULAR HEMOGLOBIN 29.2 pg (27.0-33.0); MEAN CORPUSCULAR HGB CONC 32.5 g/dl (32.0-36.5); MEAN CORPUSCULAR VOLUME 89.9 fl (80.0-96.0); PLATELET COUNT, AUTOMATED 347 10^3/uL (150-450); RED BLOOD COUNT 5.65 10^6/uL (4.30-6.10); WHITE BLOOD COUNT 9.7 10^3/uL (4.0-10.0)
[2021-07-27 11:47] LABS: ALBUMIN 4.2 GM/DL (3.2-5.2); ALT/SGPT 42 U/L (12-78); BILIRUBIN,TOTAL 0.2 MG/DL (0.2-1.0); BLOOD UREA NITROGEN 16 MG/DL (7-18); CALCIUM LEVEL 9.4 MG/DL (8.5-10.1); CARBON DIOXIDE LEVEL 31 MEQ/L (21-32); CHLORIDE LEVEL 102 MEQ/L (98-107); CHOLESTEROL LEVEL 248 MG/DL (<200); CHOLESTEROL RISK RATIO 5.276 (<5); FERRITIN 26 NG/ML (26-388); GLOMERULAR FILTRATION RATE > 60.0 (>60); GLUCOSE, FASTING 83 MG/DL (70-100); HDL CHOLESTEROL 47 MG/DL (>40); IRON (FE) 90 UG/DL (65-175); LDL CHOLESTEROL 166 MG/DL (<100); NON-HDL-C 201 MG/DL; PERCENT SATURATION 22.4 % (19.7-50.0); POTASSIUM SERUM 4.7 MEQ/L (3.5-5.1); SODIUM LEVEL 137 MEQ/L (136-145); TOTAL 25(OH) VITAMIN D 39.1 NG/ML (30.0-100.0); TOTAL IRON BINDING CAPACITY 401 UG/DL (250-450); TOTAL PROTEIN 7.4 GM/DL (6.4-8.2); TRIGLYCERIDES LEVEL 177 MG/DL (<150)
== END ==
LOC: M LAB 09:42
PROVIDERS: ATTEND Physician Assistant
DX: D50.9 Iron deficiency anemia, unspecified (principal)

== ENCOUNTER → 2021-08-09 | Outpatient (CLI) | payer MEDICAID ==
[2021-08-09 15:35] LABS: ALBUMIN 3.9 GM/DL (3.2-5.2); ALT/SGPT 36 U/L (12-78); BILIRUBIN,TOTAL 0.3 MG/DL (0.2-1.0); BLOOD UREA NITROGEN 11 MG/DL (7-18); CALCIUM LEVEL 9.3 MG/DL (8.5-10.1); CARBON DIOXIDE LEVEL 30 MEQ/L (21-32); CHLORIDE LEVEL 108 MEQ/L (98-107); CREATININE FOR GFR 0.66 MG/DL (0.70-1.30); GLOMERULAR FILTRATION RATE > 60.0 (>60); GLUCOSE, FASTING 97 MG/DL (70-100); SODIUM LEVEL 142 MEQ/L (136-145); TOTAL PROTEIN 6.9 GM/DL (6.4-8.2)
== END ==
LOC: M LAB 14:48
PROVIDERS: ATTEND Physical Medicine & Rehabilitation
DX: G80.0 Spastic quadriplegic cerebral palsy (principal)

== ENCOUNTER → 2021-10-24 | Outpatient (CLI) | payer MEDICAID ==
[~2021-10-24] MED LIST changes: -IBUP200T45 PO; +IBUP200T46 PO
== END ==
LOC: M LABSMTC 11:41
PROVIDERS: ATTEND Pediatrics
DX: Z11.52 Encounter for screening for COVID-19 (principal); Z20.822 Contact with and (suspected) exposure to COVID-19

== ENCOUNTER → 2021-10-29 | Outpatient (REF) | LOC: M LABSMTC 09:54 | PROVIDERS: ATTEND Pediatrics | DX: Z11.52 Encounter for screening for COVID-19 (principal); Z20.822 Contact with and (suspected) exposure to COVID-19 ==

== ENCOUNTER → 2021-11-14 | Outpatient (CLI) | payer MEDICAID | LOC: M LABSMTC 11:01 | PROVIDERS: ATTEND Pathology Anatomic Pathology & Clinical Pathology | DX: Z01.818 Encounter for other preprocedural examination (principal); Z11.52 Encounter for screening for COVID-19 ==

== ENCOUNTER → 2022-01-15 | Outpatient (CLI) | payer MEDICAID ==
[2022-01-15 14:29] LABS: CHOLESTEROL RISK RATIO 4.448 (<5)
== END ==
LOC: M LAB 13:11
PROVIDERS: ATTEND Physician Assistant
DX: E78.2 Mixed hyperlipidemia (principal)

== ENCOUNTER 2022-02-20 13:26 | Emergency (ER) | payer MEDICAID ==
[2022-02-20 13:38] VITALS: BP 126/91
== END 2022-02-20 17:48 | disposition home or self-care (01) ==
LOC: M ED 13:26 → EDBD 13:26 → M ED 17:48
DX: R09.89 Other specified symptoms and signs involving the circulatory and respiratory systems (principal); J45.909 Unspecified asthma, uncomplicated; F41.9 Anxiety disorder, unspecified; R56.9 Unspecified convulsions; R62.50 Unspecified lack of expected normal physiological development in childhood; Z87.19 Personal history of other diseases of the digestive system; Z88.1 Allergy status to other antibiotic agents; Z91.018 Allergy to other foods; Z79.899 Other long term (current) drug therapy

== ENCOUNTER → 2022-06-11 | Outpatient (CLI) | payer MEDICAID ==
[~2022-06-11] MED LIST changes: +LEVO1TAB40 PO; -LEVO750T13 PO
[2022-06-11 10:10] LABS: BASO # 0.1 10^3/uL (0.0-0.2); BASO % 0.9 % (0.0-1.0); EOS # 0.1 10^3/uL (0.0-0.5); EOS % 1.8 % (0.0-3.0); HEMATOCRIT 51.2 % (42.0-52.0); HEMOGLOBIN 16.3 g/dl (13.5-17.5); LYMPH # 1.5 10^3/uL (1.5-5.0); LYMPH % 19.1 % (24.0-44.0); MEAN CORPUSCULAR HEMOGLOBIN 27.9 pg (27.0-33.0); MEAN CORPUSCULAR HGB CONC 31.8 g/dl (32.0-36.5); MEAN CORPUSCULAR VOLUME 87.7 fl (80.0-96.0); MONO # 0.7 10^3/uL (0.0-0.8); MONO % 8.6 % (2.0-8.0); NEUTROPHILS # 5.3 10^3/uL (1.5-8.5); NEUTROPHILS % 69.3 % (36.0-66.0); PLATELET COUNT, AUTOMATED 314 10^3/uL (150-450); RED BLOOD COUNT 5.84 10^6/uL (4.30-6.10); WHITE BLOOD COUNT 7.6 10^3/uL (4.0-10.0)
[2022-06-11 10:48] LABS: ALBUMIN 4.2 GM/DL (3.2-5.2); ALT/SGPT 39 U/L (12-78); BILIRUBIN,TOTAL 0.3 MG/DL (0.2-1.0); BLOOD UREA NITROGEN 10 MG/DL (7-18); CALCIUM LEVEL 9.8 MG/DL (8.5-10.1); CARBON DIOXIDE LEVEL 25 MEQ/L (21-32); CHLORIDE LEVEL 107 MEQ/L (98-107); CREATININE FOR GFR 0.57 MG/DL (0.70-1.30); GLOMERULAR FILTRATION RATE > 60.0 (>60); GLUCOSE, FASTING 114 MG/DL (70-100); SODIUM LEVEL 138 MEQ/L (136-145)
== END ==
LOC: M LAB 09:16
PROVIDERS: ATTEND Internal Medicine Addiction Medicine
DX: Z01.818 Encounter for other preprocedural examination (principal)

== ENCOUNTER → 2022-06-24 | Outpatient (CLI) | payer MEDICAID | LOC: M LABSMTC 10:15 | DX: Z01.812 Encounter for preprocedural laboratory examination (principal); Z11.52 Encounter for screening for COVID-19 ==

== ENCOUNTER → 2022-08-09 | Outpatient (CLI) | payer MEDICAID ==
[~2022-08-09] MED LIST changes: -FLEEENE3 PR; +GLYC5.4S PR
[2022-08-09 08:58] LABS: HEMATOCRIT 50.2 % (42.0-52.0); HEMOGLOBIN 15.7 g/dl (13.5-17.5); MEAN CORPUSCULAR HEMOGLOBIN 27.4 pg (27.0-33.0); MEAN CORPUSCULAR HGB CONC 31.3 g/dl (32.0-36.5); MEAN CORPUSCULAR VOLUME 87.6 fl (80.0-96.0); PLATELET COUNT, AUTOMATED 305 10^3/uL (150-450); RED BLOOD COUNT 5.73 10^6/uL (4.30-6.10); WHITE BLOOD COUNT 10.5 10^3/uL (4.0-10.0)
[2022-08-09 09:54] LABS: ALBUMIN 4.3 GM/DL (3.2-5.2); ALT/SGPT 43 U/L (12-78); BILIRUBIN,TOTAL 0.3 MG/DL (0.2-1.0); BLOOD UREA NITROGEN 9 MG/DL (7-18); CALCIUM LEVEL 9.4 MG/DL (8.5-10.1); CARBON DIOXIDE LEVEL 30 MEQ/L (21-32); CHLORIDE LEVEL 103 MEQ/L (98-107); CHOLESTEROL LEVEL 178 MG/DL (<200); CHOLESTEROL RISK RATIO 4.564 (<5); CREATININE FOR GFR 0.66 MG/DL (0.70-1.30); FERRITIN 12 NG/ML (26-388); GLOMERULAR FILTRATION RATE > 60.0 (>60); GLUCOSE, FASTING 84 MG/DL (70-100); HDL CHOLESTEROL 39 MG/DL (>40); IRON (FE) 61 UG/DL (65-175); LDL CHOLESTEROL 81 MG/DL (<100); NON-HDL-C 139 MG/DL; PERCENT SATURATION 12.8 % (19.7-50.0); POTASSIUM SERUM 4.8 MEQ/L (3.5-5.1); SODIUM LEVEL 140 MEQ/L (136-145); TOTAL IRON BINDING CAPACITY 475 UG/DL (250-450); TOTAL PROTEIN 7.4 GM/DL (6.4-8.2); TRIGLYCERIDES LEVEL 292 MG/DL (<150)
[2022-08-09 10:11] LABS: TOTAL 25(OH) VITAMIN D 44.9 NG/ML (30.0-100.0)
== END ==
LOC: M LAB 07:50
PROVIDERS: ATTEND Physician Assistant Medical
DX: D50.9 Iron deficiency anemia, unspecified (principal); E55.9 Vitamin D deficiency, unspecified; E78.2 Mixed hyperlipidemia; N40.0 Benign prostatic hyperplasia without lower urinary tract symptoms; R11.2 Nausea with vomiting, unspecified

== ENCOUNTER → 2022-09-03 | Outpatient (CLI) | payer MEDICAID | LOC: M WHC 10:39 | PROVIDERS: ATTEND Physician Assistant Medical | DX: M81.0 Age-related osteoporosis without current pathological fracture (principal); M85.88 Other specified disorders of bone density and structure, other site ==

== ENCOUNTER → 2022-09-09 | Outpatient (CLI) | payer MEDICAID | LOC: M RAD 07:43 | PROVIDERS: ATTEND Physician Assistant | DX: R93.41 Abnormal radiologic findings on diagnostic imaging of renal pelvis, ureter, or bladder (principal) ==

== ENCOUNTER → 2022-09-27 | Outpatient (REF) | payer MEDICAID ==
[2022-09-27 14:51] LABS: APPEARANCE, URINE MANUAL CLEAR (CLEAR); COLOR, URINE MANUAL YELLOW (YELLOW)
[2022-09-27 14:52] LABS: BILIRUBIN, URINE MANUAL NEGATIVE (NEGATIVE); BLOOD URINE MANUAL NEGATIVE (NEGATIVE); GLUCOSE, URINE (UA) MANUAL NEGATIVE (NEGATIVE); KETONE, URINE MANUAL NEGATIVE (NEGATIVE); LEUKOCYTE ESTERASE, URINE MAN NEGATIVE (NEGATIVE); NITRITE, URINE MANUAL NEGATIVE (NEGATIVE); PH,URINE MAN 7.5 UNITS (5.0 - 7.0); PROTEIN, URINE MANUAL NEGATIVE (NEGATIVE); UROBILINOGEN, URINE MANUAL NORMAL (NORMAL)
== END ==
LOC: M SMT 12:58
PROVIDERS: ATTEND Urology
DX: N32.89 Other specified disorders of bladder (principal)

== ENCOUNTER → 2022-12-24 | Outpatient (CLI) | payer MEDICAID ==
[2022-12-24 12:47] LABS: HEMATOCRIT 43.9 % (42.0-52.0); HEMOGLOBIN 13.5 g/dl (13.5-17.5); MEAN CORPUSCULAR HEMOGLOBIN 25.3 pg (27.0-33.0); MEAN CORPUSCULAR HGB CONC 30.8 g/dl (32.0-36.5); MEAN CORPUSCULAR VOLUME 82.2 fl (80.0-96.0); PLATELET COUNT, AUTOMATED 430 10^3/uL (150-450); RED BLOOD COUNT 5.34 10^6/uL (4.30-6.10); WHITE BLOOD COUNT 6.6 10^3/uL (4.0-10.0)
[2022-12-24 13:52] LABS: ALBUMIN 3.7 G/DL (3.2-5.2); ALKALINE PHOSPHATASE 100 U/L (46-116); ALT/SGPT 47 U/L (7.0-40); AST/SGOT 38 U/L (<34); BILIRUBIN,TOTAL 0.4 MG/DL (0.3-1.2); BLOOD UREA NITROGEN 9 MG/DL (9-23); CALCIUM LEVEL 9.8 MG/DL (8.5-10.1); CARBON DIOXIDE LEVEL 30 MMOL/L (20-31); CHLORIDE LEVEL 104 MMOL/L (98-107); GLOMERULAR FILTRATION RATE > 60.0 (>60); GLUCOSE, FASTING 103 MG/DL (60-100); POTASSIUM SERUM 4.3 MMOL/L (3.5-5.1); SODIUM LEVEL 141 MMOL/L (136-145)
[2022-12-24 15:30] LABS: TOTAL PROTEIN 6.3 G/DL (5.7-8.2)
== END ==
LOC: M WUC 09:56
PROVIDERS: ATTEND Physician Assistant Medical
DX: R11.10 Vomiting, unspecified (principal)

== ENCOUNTER → 2023-01-27 | Outpatient (CLI) | payer MEDICAID | LOC: M RAD 10:00 | PROVIDERS: ATTEND Physician Assistant Medical | DX: R11.10 Vomiting, unspecified (principal) ==

== ENCOUNTER → 2023-02-10 | Outpatient (CLI) | payer MEDICAID ==
[2023-02-10 10:30] LABS: HEMATOCRIT 42.8 % (42.0-52.0); HEMOGLOBIN 12.9 g/dl (13.5-17.5); MEAN CORPUSCULAR HEMOGLOBIN 24.2 pg (27.0-33.0); MEAN CORPUSCULAR HGB CONC 30.1 g/dl (32.0-36.5); MEAN CORPUSCULAR VOLUME 80.3 fl (80.0-96.0); PLATELET COUNT, AUTOMATED 347 10^3/uL (150-450); RED BLOOD COUNT 5.33 10^6/uL (4.30-6.10); WHITE BLOOD COUNT 7.6 10^3/uL (4.0-10.0)
[2023-02-10 10:54] LABS: ALBUMIN 4.1 G/DL (3.2-5.2); ALKALINE PHOSPHATASE 105 U/L (46-116); ALT/SGPT 30 U/L (7.0-40); AST/SGOT 28 U/L (<34); BILIRUBIN,TOTAL 0.3 MG/DL (0.3-1.2); BLOOD UREA NITROGEN 14 MG/DL (9-23); CARBON DIOXIDE LEVEL 28 MMOL/L (20-31); CHLORIDE LEVEL 107 MMOL/L (98-107); CREATININE FOR GFR 0.63 MG/DL (0.70-1.30); GLOMERULAR FILTRATION RATE > 60.0 (>60); GLUCOSE, FASTING 81 MG/DL (60-100); IRON (FE) 14 UG/DL (65-175); PERCENT SATURATION 3.5 % (19.7-50.0); POTASSIUM SERUM 4.5 MMOL/L (3.5-5.1); SODIUM LEVEL 142 MMOL/L (136-145); TOTAL IRON BINDING CAPACITY 403 UG/DL (250-425); TOTAL PROTEIN 6.7 G/DL (5.7-8.2)
== END ==
LOC: M RAD 09:02
PROVIDERS: ATTEND Physician Assistant Medical
DX: Z01.818 Encounter for other preprocedural examination (principal); R79.89 Other specified abnormal findings of blood chemistry; R73.09 Other abnormal glucose; D50.9 Iron deficiency anemia, unspecified

== ENCOUNTER → 2023-02-13 | Outpatient (CLI) | payer MEDICAID ==
[~2023-02-13] MED LIST changes: +E-Z-GAS II EFFERVESCENT PACKET (SODIUM BICARB./CITRIC ACID/SIMETHICONE) As Ordered ONE; +E-Z-HD 98% w/w 340GM SUSP BTL As Ordered ONE; +E-Z-PAQUE 96% w/w SUSP 176GM BTL As Ordered ONE
== END ==
LOC: M RAD 02-12 08:54
PROVIDERS: ATTEND Internal Medicine Gastroenterology
DX: R11.10 Vomiting, unspecified (principal); K21.9 Gastro-esophageal reflux disease without esophagitis

== ENCOUNTER → 2023-03-21 | Outpatient (CLI) | payer MEDICAID ==
[~2023-03-21] MED LIST changes: -E-Z-GAS II EFFERVESCENT PACKET (SODIUM BICARB./CITRIC ACID/SIMETHICONE) As Ordered ONE; -E-Z-HD 98% w/w 340GM SUSP BTL As Ordered ONE; -E-Z-PAQUE 96% w/w SUSP 176GM BTL As Ordered ONE
[2023-03-21 17:21] LABS: HEMATOCRIT 41.7 % (42.0-52.0); HEMOGLOBIN 12.3 g/dl (13.5-17.5); MEAN CORPUSCULAR HEMOGLOBIN 23.9 pg (27.0-33.0); MEAN CORPUSCULAR HGB CONC 29.5 g/dl (32.0-36.5); MEAN CORPUSCULAR VOLUME 81.1 fl (80.0-96.0); PLATELET COUNT, AUTOMATED 570 10^3/uL (150-450); RED BLOOD COUNT 5.14 10^6/uL (4.30-6.10); WHITE BLOOD COUNT 8.2 10^3/uL (4.0-10.0)
[2023-03-21 17:44] LABS: TOTAL IRON BINDING CAPACITY 397 UG/DL (250-425)
[2023-03-21 17:46] LABS: ALBUMIN 3.9 G/DL (3.2-5.2); ALKALINE PHOSPHATASE 124 U/L (46-116); ALT/SGPT 35 U/L (7.0-40); AST/SGOT 30 U/L (<34); BILIRUBIN,TOTAL 0.3 MG/DL (0.3-1.2); BLOOD UREA NITROGEN 17 MG/DL (9-23); CALCIUM LEVEL 9.5 MG/DL (8.5-10.1); CARBON DIOXIDE LEVEL 26 MMOL/L (20-31); CHLORIDE LEVEL 105 MMOL/L (98-107); CREATININE FOR GFR 0.57 MG/DL (0.70-1.30); GLOMERULAR FILTRATION RATE > 60.0 (>60); GLUCOSE, FASTING 130 MG/DL (60-100); IRON (FE) 13 UG/DL (65-175); PERCENT SATURATION 3.3 % (19.7-50.0); SODIUM LEVEL 140 MMOL/L (136-145)
== END ==
LOC: M WUC 11:52
PROVIDERS: ATTEND Physician Assistant Medical
DX: E83.51 Hypocalcemia (principal); D64.9 Anemia, unspecified; J18.9 Pneumonia, unspecified organism

== ENCOUNTER → 2023-03-24 | Outpatient (CLI) | payer MEDICAID | LOC: M RAD 10:13 | PROVIDERS: ATTEND Physician Assistant Medical | DX: J18.9 Pneumonia, unspecified organism (principal) ==

== ENCOUNTER → 2023-04-24 | Outpatient (CLI) | payer MEDICAID ==
[2023-04-24 12:20] LABS: HEMATOCRIT 45.2 % (42.0-52.0); HEMOGLOBIN 13.4 g/dl (13.5-17.5); MEAN CORPUSCULAR HEMOGLOBIN 24.5 pg (27.0-33.0); MEAN CORPUSCULAR HGB CONC 29.6 g/dl (32.0-36.5); MEAN CORPUSCULAR VOLUME 82.8 fl (80.0-96.0); PLATELET COUNT, AUTOMATED 350 10^3/uL (150-450); RED BLOOD COUNT 5.46 10^6/uL (4.30-6.10)
== END ==
LOC: M WUC 08:20
PROVIDERS: ATTEND Physician Assistant Medical
DX: D50.9 Iron deficiency anemia, unspecified (principal)

== ENCOUNTER → 2023-05-21 | Outpatient (CLI) | payer MEDICAID | LOC: M WUC 13:34 | PROVIDERS: ATTEND Physician Assistant Medical | DX: E61.1 Iron deficiency (principal); Z53.8 Procedure and treatment not carried out for other reasons ==

== ENCOUNTER → 2023-05-21 | Outpatient (CLI) | payer MEDICAID ==
[2023-05-21 16:15] LABS: HEMATOCRIT 48.6 % (42.0-52.0); HEMOGLOBIN 15.3 g/dl (13.5-17.5); MEAN CORPUSCULAR HEMOGLOBIN 25.8 pg (27.0-33.0); MEAN CORPUSCULAR HGB CONC 31.5 g/dl (32.0-36.5); PLATELET COUNT, AUTOMATED 224 10^3/uL (150-450); RED BLOOD COUNT 5.93 10^6/uL (4.30-6.10); WHITE BLOOD COUNT 7.8 10^3/uL (4.0-10.0)
[2023-05-21 16:46] LABS: PERCENT SATURATION 13.9 % (19.7-50.0)
== END ==
LOC: M LAB 15:40
PROVIDERS: ATTEND Physician Assistant Medical
DX: E61.1 Iron deficiency (principal)

== ENCOUNTER → 2023-06-27 | Outpatient (CLI) | payer MEDICAID ==
[2023-06-27 11:59] LABS: HEMATOCRIT 52.8 % (42.0-52.0); HEMOGLOBIN 16.7 g/dl (13.5-17.5); MEAN CORPUSCULAR HGB CONC 31.6 g/dl (32.0-36.5); MEAN CORPUSCULAR VOLUME 85.4 fl (80.0-96.0); PLATELET COUNT, AUTOMATED 228 10^3/uL (150-450); RED BLOOD COUNT 6.18 10^6/uL (4.30-6.10); WHITE BLOOD COUNT 5.4 10^3/uL (4.0-10.0)
== END ==
LOC: M LAB 11:03
PROVIDERS: ATTEND Physician Assistant Medical
DX: E61.1 Iron deficiency (principal)

== ENCOUNTER → 2023-07-01 | Outpatient (CLI) | payer MEDICAID ==
[2023-07-01 15:45] LABS: PERCENT SATURATION 22.3 % (19.7-50.0)
[2023-07-01 15:47] LABS: FERRITIN 57.7 NG/ML (10.5-307.3)
== END ==
LOC: M LAB 14:46
PROVIDERS: ATTEND Physician Assistant Medical
DX: E61.1 Iron deficiency (principal)

== ENCOUNTER → 2023-08-19 | Outpatient (CLI) | payer MEDICAID ==
[2023-08-19 10:25] LABS: HEMATOCRIT 50.9 % (42.0-52.0); MEAN CORPUSCULAR HEMOGLOBIN 29.4 pg (27.0-33.0); MEAN CORPUSCULAR HGB CONC 33.4 g/dl (32.0-36.5); MEAN CORPUSCULAR VOLUME 87.9 fl (80.0-96.0); PLATELET COUNT, AUTOMATED 226 10^3/uL (150-450); RED BLOOD COUNT 5.79 10^6/uL (4.30-6.10); WHITE BLOOD COUNT 5.6 10^3/uL (4.0-10.0)
[2023-08-19 10:55] LABS: FREE T4 1.26 NG/DL (0.89-1.76); THYROID STIMULATING HORMONE 1.642 uIU/ML (0.55-4.78)
[2023-08-19 10:56] LABS: ALBUMIN 4.2 G/DL (3.2-5.2); ALKALINE PHOSPHATASE 81 U/L (46-116); ALT/SGPT 54 U/L (7.0-40); AST/SGOT 41 U/L (<34); BILIRUBIN,TOTAL 0.4 MG/DL (0.3-1.2); BLOOD UREA NITROGEN 14 MG/DL (9-23); CALCIUM LEVEL 9.4 MG/DL (8.5-10.1); CARBON DIOXIDE LEVEL 30 MMOL/L (20-31); CHLORIDE LEVEL 103 MMOL/L (98-107); CHOLESTEROL LEVEL 134 MG/DL (<200); CHOLESTEROL RISK RATIO 3.56 (<5); CREATININE FOR GFR 0.66 MG/DL (0.70-1.30); GLOMERULAR FILTRATION RATE > 60.0 (>60); GLUCOSE, FASTING 81 MG/DL (60-100); HDL CHOLESTEROL 37.6 MG/DL (>40); IRON (FE) 128 UG/DL (65-175); LDL CHOLESTEROL 65.6 MG/DL (<100); NON-HDL-C 96.4 MG/DL; POTASSIUM SERUM 4.2 MMOL/L (3.5-5.1); SODIUM LEVEL 141 MMOL/L (136-145); TOTAL 25(OH) VITAMIN D 55.5 NG/ML (20.0-100.0); TOTAL PROTEIN 6.8 G/DL (5.7-8.2); TRIGLYCERIDES LEVEL 154 MG/DL (<150)
== END ==
LOC: M WUC 08:18
PROVIDERS: ATTEND Physician Assistant Medical
DX: R63.5 Abnormal weight gain (principal); E55.9 Vitamin D deficiency, unspecified; D50.9 Iron deficiency anemia, unspecified; E83.51 Hypocalcemia

== ENCOUNTER 2023-12-17 13:36 | Emergency (ER) | payer MEDICAID ==
[~2023-12-17] VITALS: Ht 162.6 cm; Wt 54.5 kg
[2023-12-17 13:37] VITALS: BP 132/84; TEMP 97.9; O2SAT 98
[2023-12-17] MEDS ORDERED: VALI2TAB PO (16:27)
[2023-12-17] MEDS: diazePAM 2 MG TAB PO ONE (16:32)
== END 2023-12-17 16:38 | disposition home or self-care (01) ==
LOC: M ED 13:36
DX: Z76.0 Encounter for issue of repeat prescription (principal); J45.909 Unspecified asthma, uncomplicated; M24.50 Contracture, unspecified joint; Z93.3 Colostomy status; Z88.8 Allergy status to other drugs, medicaments and biological substances; Z91.02 Food additives allergy status; Z79.1 Long term (current) use of non-steroidal anti-inflammatories (NSAID); Z79.899 Other long term (current) drug therapy

== ENCOUNTER → 2024-02-26 | Outpatient (CLI) | payer MEDICAID ==
[~2024-02-26] MED LIST changes: +VALI2TAB PO
[2024-02-26 10:33] LABS: HEMATOCRIT 52.5 % (42.0-52.0); HEMOGLOBIN 17.7 g/dl (13.5-17.5); MEAN CORPUSCULAR HEMOGLOBIN 30.6 pg (27.0-33.0); MEAN CORPUSCULAR HGB CONC 33.7 g/dl (32.0-36.5); MEAN CORPUSCULAR VOLUME 90.8 fl (80.0-96.0); PLATELET COUNT, AUTOMATED 243 10^3/uL (150-450); RED BLOOD COUNT 5.78 10^6/uL (4.30-6.10); WHITE BLOOD COUNT 7.7 10^3/uL (4.0-10.0)
[2024-02-26 11:04] LABS: ALBUMIN 4.2 G/DL (3.2-5.2); ALKALINE PHOSPHATASE 112 U/L (46-116); ALT/SGPT 45 U/L (7.0-40); AST/SGOT 35 U/L (<34); BILIRUBIN,TOTAL 0.8 MG/DL (0.3-1.2); BLOOD UREA NITROGEN 11 MG/DL (9-23); CALCIUM LEVEL 9.6 MG/DL (8.5-10.1); CARBON DIOXIDE LEVEL 28 MMOL/L (20-31); CHLORIDE LEVEL 105 MMOL/L (98-107); CHOLESTEROL LEVEL 122 MG/DL (<200); CHOLESTEROL RISK RATIO 3.45 (<5); CREATININE FOR GFR 0.65 MG/DL (0.70-1.30); GLOMERULAR FILTRATION RATE > 60.0 (>60); GLUCOSE, FASTING 76 MG/DL (60-100); HDL CHOLESTEROL 35.3 MG/DL (>40); IRON (FE) 118 UG/DL (65-175); LDL CHOLESTEROL 65.7 MG/DL (<100); NON-HDL-C 86.7 MG/DL; POTASSIUM SERUM 3.9 MMOL/L (3.5-5.1); SODIUM LEVEL 142 MMOL/L (136-145); TOTAL PROTEIN 7.1 G/DL (5.7-8.2); TRIGLYCERIDES LEVEL 105 MG/DL (<150)
[2024-02-26 11:05] LABS: THYROID STIMULATING HORMONE 2.736 uIU/ML (0.55-4.78)
[2024-02-26 11:06] LABS: FREE T4 1.28 NG/DL (0.89-1.76); TOTAL 25(OH) VITAMIN D 57.5 NG/ML (20.0-100.0)
== END ==
LOC: M LAB 09:07
PROVIDERS: ATTEND Physician Assistant Medical
DX: E55.9 Vitamin D deficiency, unspecified (principal); E78.2 Mixed hyperlipidemia; D50.9 Iron deficiency anemia, unspecified; R74.8 Abnormal levels of other serum enzymes

== ENCOUNTER 2024-04-26 09:11 | Inpatient (IN) | payer MEDICAID ==
[~2024-04-26] VITALS: Ht 149.9 cm; Wt 51.1 kg
[2024-04-26] MEDS: LevoFLOXacin 750 MG TABLET PO SCH (06:00)
[2024-04-26] MEDS: CitaloPRAM (CeleXA) 20 MG TAB PO SCH (09:00)
[2024-04-26] MEDS: SIMETHICONE 80MG CHEW TAB PO SCH (09:00)
[2024-04-26] MEDS: DOCUSATE SODIUM 100MG CAPSULE PO SCH (09:00)
[2024-04-26] MEDS: LACTULOSE 20GM/30ML SYRUP UDC PO SCH (09:00)
[2024-04-26] MEDS: MIRALAX *UNIT DOSE* 17GM PACKET PO SCH (09:00)
[2024-04-26 10:45] LABS: BASO # 0.1 10^3/uL (0.0-0.2); BASO % 0.3 % (0.0-1.0); EOS # 0.1 10^3/uL (0.0-0.5); EOS % 0.5 % (0.0-3.0); HEMATOCRIT 47.2 % (42.0-52.0); HEMOGLOBIN 15.7 g/dl (13.5-17.5); LYMPH # 1.5 10^3/uL (1.5-5.0); LYMPH % 8.5 % (24.0-44.0); MEAN CORPUSCULAR HEMOGLOBIN 30.7 pg (27.0-33.0); MEAN CORPUSCULAR HGB CONC 33.3 g/dl (32.0-36.5); MEAN CORPUSCULAR VOLUME 92.4 fl (80.0-96.0); MONO # 1.5 10^3/uL (0.0-0.8); MONO % 8.6 % (2.0-8.0); NEUTROPHILS # 14.7 10^3/uL (1.5-8.5); NEUTROPHILS % 81.8 % (36.0-66.0); PLATELET COUNT, AUTOMATED 265 10^3/uL (150-450); RED BLOOD COUNT 5.11 10^6/uL (4.30-6.10)
[2024-04-26 10:57] LABS: ERYTHROCYTE SEDIMENTATION RATE 61 mm/hr (0-15)
[2024-04-26 11:01] LABS: INR 0.99; PROTHROMBIN TIME 12.8 SECONDS (12.5-14.5)
[2024-04-26 11:15] LABS: ALBUMIN 3.6 G/DL (3.2-5.2); ALKALINE PHOSPHATASE 122 U/L (46-116); ALT/SGPT 30 U/L (7.0-40); AST/SGOT 18 U/L (<34); BILIRUBIN,DIRECT 0.2 MG/DL (<0.4); BILIRUBIN,TOTAL 0.4 MG/DL (0.3-1.2); BLOOD UREA NITROGEN 8 MG/DL (9-23); CARBON DIOXIDE LEVEL 31 MMOL/L (20-31); CHLORIDE LEVEL 104 MMOL/L (98-107); CREATININE FOR GFR 0.53 MG/DL (0.70-1.30); GLOMERULAR FILTRATION RATE > 60.0 (>60); GLUCOSE, FASTING 93 MG/DL (60-100); POTASSIUM SERUM 3.7 MMOL/L (3.5-5.1); SODIUM LEVEL 141 MMOL/L (136-145); TOTAL PROTEIN 6.6 G/DL (5.7-8.2)
[2024-04-26] MEDS: VANCOMYCIN HCL 1,000 MG, VIAL MATE ADAPTER 1 EACH in NS 250 ML IV ONE (11:17)
[2024-04-26] MEDS ORDERED: ISOVUE-370 76% 100ML VIAL As Ordered ONE (11:21)
[2024-04-26] MEDS: metroNIDAZOLE 500 MG in IV 1 EA IV ONE (13:09)
[2024-04-26] MEDS: NS 1,000 ML IV ONE (13:13)
[2024-04-26] MEDS ORDERED: IBUP200C25 PO (14:00)
[2024-04-26] MEDS ORDERED: PANT40TA29 PO (14:00)
[2024-04-26] MEDS ORDERED: CVS13CRE TOP (14:00)
[2024-04-26] MEDS ORDERED: MM S100C PO (14:00)
[2024-04-26] MEDS ORDERED: ACID100C PO (14:00)
[2024-04-26] MEDS ORDERED: FERR325T3 PO (14:00)
[2024-04-26] MEDS ORDERED: ATOR40TA75 PO (14:00)
[2024-04-26] MEDS ORDERED: TRIPOIN9 TOP (14:00)
[2024-04-26] MEDS ORDERED: HOME MED LIST COMPLETE! XX SCH (14:10)
[2024-04-26] MEDS: LORazepam 2 MG/ML 1ML VIAL IV STA (15:20)
[2024-04-26] MEDS: MORPHINE 2 MG/ML 1ML VIAL IV ONE (15:37)
[2024-04-26 15:45] VITALS: BP 131/79; TEMP 97.7; O2SAT 99
[2024-04-26] MEDS: CYCLOBENZAPRINE 10MG TABLET PO SCH (16:00)
[2024-04-26] MEDS: DANTROLENE 25 MG CAP GT SCH (16:00)
[2024-04-26] MEDS: diazePAM 2 MG TAB PO SCH (16:00)
[2024-04-26] MEDS: metroNIDAZOLE (FLAGYL) 500MG TABLET PO SCH (17:23)
[2024-04-26 19:54] VITALS: BP 132/91; TEMP 97.5; O2SAT 97
[2024-04-26] MEDS ORDERED: metroNIDAZOLE 500 MG in IV 1 EA IV SCH (20:00)
[2024-04-26] MEDS: PANTOPRAZOLE 40MG TAB (PROTONIX) PO SCH (22:04)
[2024-04-26] MEDS: VITAMIN D 1,000 INTERNATIONAL UNITS TABLET PO SCH (22:04)
[2024-04-26] MEDS: ATORVASTATIN 20 MG TAB PO SCH (22:04)
[2024-04-26] MEDS: LevoFLOXacin IV 750 MG in IV 1 EA IV ONE (22:40)
[2024-04-27 04:03] VITALS: BP 132/92; TEMP 97.5; O2SAT 98
[2024-04-27 08:11] LABS: BASO # 0.1 10^3/uL (0.0-0.2); BASO % 0.8 % (0.0-1.0); EOS # 0.2 10^3/uL (0.0-0.5); HEMATOCRIT 45.2 % (42.0-52.0); HEMOGLOBIN 15.2 g/dl (13.5-17.5); LYMPH # 1.4 10^3/uL (1.5-5.0); LYMPH % 18.6 % (24.0-44.0); MEAN CORPUSCULAR HEMOGLOBIN 30.9 pg (27.0-33.0); MEAN CORPUSCULAR HGB CONC 33.6 g/dl (32.0-36.5); MEAN CORPUSCULAR VOLUME 91.9 fl (80.0-96.0); MONO # 0.5 10^3/uL (0.0-0.8); MONO % 6.3 % (2.0-8.0); NEUTROPHILS # 5.4 10^3/uL (1.5-8.5); NEUTROPHILS % 70.8 % (36.0-66.0); PLATELET COUNT, AUTOMATED 260 10^3/uL (150-450); RED BLOOD COUNT 4.92 10^6/uL (4.30-6.10); WHITE BLOOD COUNT 7.6 10^3/uL (4.0-10.0)
[2024-04-27 08:43] LABS: BLOOD UREA NITROGEN 6 MG/DL (9-23); CALCIUM LEVEL 8.8 MG/DL (8.5-10.1); CARBON DIOXIDE LEVEL 30 MMOL/L (20-31); CHLORIDE LEVEL 108 MMOL/L (98-107); CREATININE FOR GFR 0.51 MG/DL (0.70-1.30); GLOMERULAR FILTRATION RATE > 60.0 (>60); GLUCOSE, FASTING 82 MG/DL (60-100); SODIUM LEVEL 143 MMOL/L (136-145)
[2024-04-27] MEDS: CETIRIZINE (ZyrTEC) 10 MG TAB PO SCH (08:50)
[2024-04-27] MEDS ORDERED: OMEGA-3 1000MG CAPSULE PO SCH (09:00)
[2024-04-27] MEDS ORDERED: VITAMIN D 1,000 INTERNATIONAL UNITS TABLET PO SCH (09:00)
[2024-04-27] MEDS ORDERED: METR-265 PO ×2 (11:41→13:54)
[2024-04-27] MEDS ORDERED: LEVO1TAB40 PO (11:41)
[2024-04-27] MEDS ORDERED: ACID100C PO (11:41)
[2024-04-27 12:00] VITALS: BP 131/88; TEMP 97.7; O2SAT 98
[2024-04-27] MEDS ORDERED: LevoFLOXacin 750 MG TABLET PO SCH (18:00)
== END 2024-04-27 14:50 | disposition home or self-care (01) | DRG 226 ==
LOC: EDBD 09:11 → M ED 09:11 → M ED INP 12:41 → EEVIPCON 12:41 → M MS5PR 15:45
PROVIDERS: ADMIT General Practice; ATTEND Student in an Organized Health Care Education/Training Program
PROC: 0D9Q0ZZ Drainage of Anus, Open Approach (ICD-10-PCS; principal; 2024-04-26)
DX: K61.1 Rectal abscess (principal); F72 Severe intellectual disabilities; L02.215 Cutaneous abscess of perineum; G80.9 Cerebral palsy, unspecified; G40.909 Epilepsy, unspecified, not intractable, without status epilepticus; J45.909 Unspecified asthma, uncomplicated; K27.9 Peptic ulcer, site unspecified, unspecified as acute or chronic, without hemorrhage or perforation; K29.70 Gastritis, unspecified, without bleeding; Z93.3 Colostomy status; Z79.899 Other long term (current) drug therapy; Z88.8 Allergy status to other drugs, medicaments and biological substances; Z91.048 Other nonmedicinal substance allergy status; Z99.3 Dependence on wheelchair

== ENCOUNTER → 2024-08-04 | Outpatient (CLI) | payer MEDICAID ==
[~2024-08-04] MED LIST changes: +ACID100C PO; +ATOR40TA75 PO; +CVS13CRE TOP; +FERR325T3 PO; +IBUP200C25 PO; +MM S100C PO; +PANT40TA29 PO; +TRIPOIN9 TOP
[2024-08-04 12:28] LABS: ALBUMIN 4.3 G/DL (3.2-5.2); ALKALINE PHOSPHATASE 92 U/L (46-116); ALT/SGPT 41 U/L (7.0-40); AST/SGOT 27 U/L (<34); BILIRUBIN,TOTAL 0.4 MG/DL (0.3-1.2); BLOOD UREA NITROGEN 13 MG/DL (9-23); CALCIUM LEVEL 9.6 MG/DL (8.5-10.1); CARBON DIOXIDE LEVEL 26 MMOL/L (20-31); CHLORIDE LEVEL 105 MMOL/L (98-107); CREATININE FOR GFR 0.42 MG/DL (0.70-1.30); GLOMERULAR FILTRATION RATE > 60.0 (>60); GLUCOSE, FASTING 80 MG/DL (60-100); POTASSIUM SERUM 4.5 MMOL/L (3.5-5.1); SODIUM LEVEL 138 MMOL/L (136-145); TOTAL PROTEIN 7.1 G/DL (5.7-8.2)
== END ==
LOC: M WUC 09:29
PROVIDERS: ATTEND Physical Medicine & Rehabilitation
DX: G80.0 Spastic quadriplegic cerebral palsy (principal)

== ENCOUNTER → 2024-08-10 | Outpatient (CLI) | payer MEDICAID | LOC: M RAD 11:22 | PROVIDERS: ATTEND Physician Assistant Medical | DX: N28.9 Disorder of kidney and ureter, unspecified (principal) ==

== ENCOUNTER 2024-11-01 09:04 | Emergency (ER) | payer MEDICAID ==
[~2024-11-01 09:04] MED LIST changes: -LEVO750T14 PO; +LEVO75TAB PO; +NYST1POW3 TOP; -NYST1POW9 TOP
[2024-11-01 10:15] VITALS: BP 135/75
[2024-11-01 10:27] VITALS: TEMP 97.5; O2SAT 97
== END 2024-11-01 10:45 | disposition home or self-care (01) ==
LOC: EDBD 09:04 → M ED 09:04
DX: T17.220A Food in pharynx causing asphyxiation, initial encounter (principal); K21.9 Gastro-esophageal reflux disease without esophagitis; Z88.1 Allergy status to other antibiotic agents; Z91.048 Other nonmedicinal substance allergy status; Z79.1 Long term (current) use of non-steroidal anti-inflammatories (NSAID); Z79.899 Other long term (current) drug therapy

== ENCOUNTER → 2025-08-25 | Outpatient (CLI) | payer MEDICAID ==
[2025-08-25 14:02] LABS: PLATELET COUNT, AUTOMATED 266 10^3/uL (150-450)
[2025-08-25 14:05] LABS: ALT/SGPT 33 U/L (7.0-40); AST/SGOT 24 U/L (<34); CALCIUM LEVEL 9.8 MG/DL (8.5-10.1); CARBON DIOXIDE LEVEL 31 MMOL/L (20-31); CHLORIDE LEVEL 102 MMOL/L (98-107); CREATININE FOR GFR 0.66 MG/DL (0.70-1.30); GLOMERULAR FILTRATION RATE > 90.0 (>60); IRON (FE) 183 UG/DL (65-175); PERCENT SATURATION 59.0 % (19.7-50.0); POTASSIUM SERUM 4.6 MMOL/L (3.5-5.1); SODIUM LEVEL 142 MMOL/L (136-145)
[2025-08-25 14:10] LABS: TOTAL 25(OH) VITAMIN D 53.2 NG/ML (20.0-100.0)
[2025-08-25 14:11] LABS: FREE T4 1.36 NG/DL (0.89-1.76)
== END ==
LOC: M PLALAB 09:38
PROVIDERS: ATTEND Physician Assistant Medical
DX: E61.1 Iron deficiency (principal); R63.4 Abnormal weight loss; G80.9 Cerebral palsy, unspecified; E55.9 Vitamin D deficiency, unspecified

== ENCOUNTER → 2025-09-28 | Outpatient (CLI) | payer MEDICAID ==
[2025-09-28 15:15] LABS: CHOLESTEROL LEVEL 147.0 MG/DL (<200); CHOLESTEROL RISK RATIO 3.87 (<5); IRON (FE) 77.0 UG/DL (65-175); LDL CHOLESTEROL 80.1 MG/DL (<100); NON-HDL-C 109.1 MG/DL; PERCENT SATURATION 25.3 % (19.7-50.0); TRIGLYCERIDES LEVEL 145.0 MG/DL (<150)
== END ==
LOC: M PLALAB 09:45
PROVIDERS: ATTEND Physician Assistant Medical
DX: E61.1 Iron deficiency (principal); E78.5 Hyperlipidemia, unspecified